=== PATIENT | female | born 1925 | race Caucasian/White ===

== ENCOUNTER 2016-06-16 18:31 | Inpatient (IN) | payer MEDICARE, BC, OTHER ==
--- NOTE | 2016-06-16 19:36 | ERNOTE ---
<JacksonLynne - Last Filed: 06/16/16 20:51> Dyspnea - General Presenting Symptoms: shortness of breath, difficulty of breathing - on exertion Time Seen by Provider: 06/16/16 19:15 - Immun/Allergies/Home Medications Immunizations: IMMUNIZATION HX Immunizations Up to Date Yes History of Influenza Vaccine Yes Hx Pneumococcal Vaccination No Allergies/Adverse Reactions: Allergies No Known Allergies Allergy (Verified 05/04/16 20:24) Home Medications: HOME MEDICATIONS Citalopram Hydrobromide [Celexa] 10 mg PO DAILY@199908/13/12 [Last Taken 19:00] Simvastatin [Zocor] 40 mg PO DAILY@199908/13/12 [Last Taken 08/12/121999] glyBURIDE [Micronase] 5 mg PO BIDAC 08/13/12 [Last Taken Unknown] traMADol HCL [Ultram] 50 mg PO DAILY PRN 08/13/12 [Last Taken 08/12/12 21:00] Enalapril Maleate [Vasotec] 5 mg PO DAILY@1700 05/04/16 [Last Taken Unknown] Nitroglycerin [Nitrostat] 0.4 mg SL Q5MIN PRN 05/04/16 [Last Taken Unknown] Nystatin [Mycostatin Powder] 1 appl TP BID 05/04/16 [Last Taken Unknown] Omeprazole 20 mg PO DAILY@0800 05/04/16 [Last Taken Unknown] Warfarin Sodium [Coumadin] 2 mg PO 3XW 05/04/16 [Last Taken Unknown] Furosemide [Lasix] 40 mg PO DAILY@1200 #.1 tablet 05/08/16 [Last Taken Unknown] Metoprolol Succinate [Toprol Xl] 50 mg PO DAILY@2100 #30 tablet.sa 05/08/16 [ Last Taken Unknown] Spironolactone [Aldactone] 12.5 mg PO DAILY@1200 #30 tablet 05/08/16 [Last Taken Unknown] Warfarin Sodium [Coumadin] 3 mg PO 3XW #30 tablet 05/08/16 [Last Taken Unknown] Calcitriol [Rocaltrol] 0.25 mcg PO DAILY 06/17/16 [Last Taken Unknown] Cholecalciferol (Vitamin D3) [Vitamin D3] 1,000 unit PO DAILY 06/17/16 [Last Taken Unknown] Ciprofloxacin HCl [Cipro] 500 mg PO BID 06/17/16 [Last Taken 06/16/16] Physical Exam - Physical Exam Respiratory: Present: no respiratory distress - is resting comfortable in the supine position she has not had any respiratory distress however she states that when she takes 2 or 3 steps she becomes acutely short of breath ED Progress - Results and Orders Patient's Lab Results:: I have reviewed the patient's lab results. - patient's BNP is greater than 12,000 and is 1.9 - Vital Signs Patient's Vital Signs:: I have reviewed the patient's vital signs. Vital Signs: Vital Signs 06/16/16 06/16/16 06/16/16 18:48 19:44 20:14 Temperature 36.2 C L Pulse Rate 70 71 69 Respiratory 18 23 H Rate Blood Pressure 108/63 115/51 115/51 O2 Sat by Pulse 96 96 Oximetry 06/16/16 20:31 Temperature Pulse Rate 73 Respiratory 22 H Rate Blood Pressure O2 Sat by Pulse 94 Oximetry - EKG EKG: NSR - patient's x-ray reveals congestion in the right hilar region and pleural effusion on the left lower lobe. X-ray is consistent with CHF - Progress/Reassessment Chief Complaint: Dyspnea Plan - Plan Plan: Believe it would be in the patient's best interest to be admitted to this hospital for diagnosis of CHF exacerbation. Face our hospitalist was consulted in regards to this admission. Admit the patient to the telemetry unit. Departure Clinical Impression: Acute pulmonary edema with congestive heart failure Acute exacerbation of CHF (congestive heart failure) Qualifiers: Congestive heart failure type: unspecified congestive heart failure type Qualified Code(s): I50.9 - Heart failure, unspecified Dyspnea Qualifiers: Dyspnea type: shortness of breath Qualified Code(s): R06.02 - Shortness of breath - Departure Disposition: [facility] Condition: Good <Kemal Miller - Last Filed: 06/17/16 11:04> Dyspnea - Date Date of Service: 06/16/16 - General Presenting Symptoms: shortness of breath, difficulty of breathing Source: patient, family, RN notes reviewed Exam Limitations: no limitations - Immun/Allergies/Home Medications Immunizations: IMMUNIZATION HX Immunizations Up to Date Yes History of Influenza Vaccine Yes Hx Pneumococcal Vaccination No - History of Present Illness Date (Duration): 06/12/16 Severity: moderate Treatment [employer]: lasix Modifying Factors - (Improves): Reports: rest Modifying Factors (Worsens): Reports: activity Associated Symptoms-Dyspnea: Reports: cough, ankle/leg swelling. Denies: fever/ chills, sweating, chest pain/discomfort, palpitations, wheezing, leg/calf pain, dizziness, lightheadedness, weakness, anxiety, tingling of hands/face Prior Treatment: Reports: recently hospitalized, previous episodes - patient has been admitted to the hospital at the end of May for similar symptoms, she was diuresed for her fluid overload/congestive heart failure Review of Systems - Review of Systems Constitutional: Present: fever, weakness, fatigue, malaise Respiratory: Present: shortness of breath, cough. Absent: orthopnea, wheezing, stridor Cardiology: Absent: chest pain, palpitations, syncope, edema, claudication Gastrointestinal/Abdominal: Absent: no symptoms reported Musculoskeletal: Present: no symptoms reported. Absent: back pain Skin: Present: no symptoms reported Neurological: Present: no symptoms reported. Absent: anxiety, depressed - Patient's Past Medical History Patient History - Medical: Anemia, Diabetes Type 2, Obesity, Other Patient History - Cardiac/Respiratory: Atrial Fibrillation, Coronary Heart Disease, CHF, Hypertension, Hyperlipidemia Patient History - Cancer: Colon Patient History - Surgical Procedures: Cancer Surgery, Cataracts, Cholecystectomy, Colon Resection, Other - Family History Brother Family History - Medical: Diabetes Type 2, Seizures Father Family History - Medical: , Other Mother Family History - Medical: , Diabetes Type 2 - Social History Living Situations: home Smoking Status: Former smoker Alcohol Use: none Drug Use: none Physical Exam - Physical Exam General Appearance: Present: wd/wn, alert, no apparent distress Ears, Nose, Throat: Present: normal ENT inspection, hearing grossly normal, normal pharynx Neck: Present: normal inspection, nontender Respiratory: Present: no respiratory distress, no accessory muscle use, chest nontender, lungs clear, decreased breath sounds, rales - bibasilar rails and crackles Cardiovascular/Chest: Present: regular rate, rhythm, no murmur, normal peripheral pulses Gastrointestinal/Abdominal: Present: normal bowel sounds, nontender, nondistended Neurological Exam: Present: alert, oriented, normal mood/affect, no motor/ sensory deficits Skin Exam: Present: normal color, warm/dry Lymphatic Exam: Present: no adenopathy ED Progress - Vital Signs Patient's Vital Signs:: I have reviewed the patient's vital signs. Vital Signs: Vital Signs 06/16/16 18:48 Temperature 36.2 C L Pulse Rate 70 Respiratory 18 Rate Blood Pressure 108/63 O2 Sat by Pulse 96 Oximetry - Transfer of Care Physician Sign Out: Kemal Miller Receiving Physician: Lynne Paz Pending Results: Labs, X-ray results - reading for labs and results the patient' s care will be transferred over to Dr. Paz for further dispositioning and following up on labs.
[2016-06-16] MEDS ORDERED: FUROSEMIDE 10 MG/ML VIAL IV ONE ×2 (19:39→23:09)
[2016-06-16] MEDS ORDERED: FUROSEMIDE 10 MG/ML VIAL ONE (20:09)
[2016-06-16 20:10] LABS: Hematocrit 35.4 % (37.0-47.0); Hemoglobin 10.9 gm/dL (12.5-16.0); Mean Cell Volume 88.7 fl (78-100); Mean Corpuscular Hemoglobin 27.3 pg (27-31); Mean Corpuscular Hgb Conc 30.8 g/dl (32-36); Mean Platelet Volume 10.5 fl (6.0-9.5); Neutrophil # 3.5 K/mm3 (1.3-6.0); Neutrophil % 65.9 % (42-75.0); Platelet Count 167 K/mm3 (150-450); Red Blood Count 3.99 M/mm3 (4.2-5.4); Red Cell Distribution Width 16.1 % (11.5-14.0); White Blood Count 5.3 K/mm3 (4.0-10.5)
[2016-06-16 20:23] LABS: Prothrombin Time (Patient) 23.4 Seconds (9.4-11.4)
[2016-06-16 20:27] LABS: INR 2.25 INR (0.90-1.10); Partial Thrombolplastin Time 31.4 Seconds (24-32)
[2016-06-16 20:31] LABS: Anion Gap 10.8 mmol/L (6.8-13.8); BUN/Creatinine Ratio 15.9 (9.0-21.6); Bilirubin, Total 0.6 mg/dL (0.0-1.1); Ca. Corrected For Albumin 9.1 mg/dL (8.4-10.2); Calcium * 8.6 mg/dL (7.9-10.9); Carbon Dioxide 26.6 mmol/L (24-32.6); Potassium 4.4 mmol/L (3.4-4.6); Total Protein 6.7 gm/dL (6.2-8.2); Troponin I 0.035 ng/ml (0.00-0.10)
[2016-06-16] MEDS ORDERED: METOLAZONE 5 MG TABLET PO ONE (23:08)
[2016-06-16] MEDS ORDERED: NITROGLYCERIN 0.4 MG/TAB BTL SL PRN (23:13)
[2016-06-16] MEDS ORDERED: traMADol HCL 50 MG TABLET PO PRN (23:13)
[2016-06-16] MEDS ORDERED: METOPROLOL SUCCINATE 50 MG TABLET.SA PO SCH (23:30)
[2016-06-16] MEDS ORDERED: SIMVASTATIN 40 MG TABLET PO SCH (23:30)
[2016-06-16] MEDS: CITALOPRAM HYDROBROMIDE 10 MG TABLET PO SCH (23:42)
--- NOTE | 2016-06-17 00:22 | HP ---
Chief Complaint - Chief Complaint Date of Service: 06/16/16 Time of Service: 23:27 Chief Complaint: "SOB, Weakness, increased leg swelling". Source- Pt; reliable , ER provider notes. History of Present Illness: Ms. New is a 89-yr-old [place] pt of Dr. Ha with a PMH of: Anemia, A-fib, DM II , CHF, HTN, HLD & IBS. Pt states that for the last 3-4 days, she has had worsening SOB. She reports that she has felt weak & has had no appetite. [facility] RN convinced to seek medical care today. She was then brought to the [facility] ER by her daughter. She has had increasing coughing as well, but it's mostly non- productive. She denies fevers & Chills. She also denies n/v, abd pain or diarrhea. During evaluation at the ED, the CXR showed findings consistent with pulmonary Edema. She also had increased swelling on her BLE. She will need to be admitted inpatient due to Acute CHF exacerbation which will respond well to IV diuretics. - Patient's Past Medical History Patient History - Medical: Anemia, Diabetes Type 2, Obesity, Other Patient History - Cardiac/Respiratory: Atrial Fibrillation, Coronary Heart Disease, CHF, Hypertension, Hyperlipidemia Patient History - Cancer: Colon Patient History - Surgical Procedures: Cancer Surgery, Cataracts, Cholecystectomy, Colon Resection - Family History Brother Family History - Medical: Diabetes Type 2, Seizures Family History - Cardiac/Respiratory: No pertinent hx Father Family History - Medical: , Other - Natural Causes. Family History - Cardiac/Respiratory: History Unknown Mother Family History - Medical: , Diabetes Type 2 Family History - Cardiac/Respiratory: Hypertension - Social History Living Situations: home Smoking Status: Former smoker Have you smoked in the past 12 months: No Alcohol Use: none Drug Use: none - Immunizations Immunizations Up to Date: Yes Hx Pneumococcal Vaccination: Yes History of Influenza Vaccine: Yes Review Of Systems (GEN) - Review of Systems Generalized/Overall Review: Present: Weakness. Absent: Chills, Fever, Diaphoresis EENTM: Absent: Eye Pain, Blurred Vision Respiratory: Present: Cough, Shortness of Breath Cardiac: Absent: Chest Pain, Edema, Palpitations Abdominal: Absent: Nausea, Vomiting, Abdominal Pain, Constipation, Diarrhea Genitourinary: Present: Frequency. Absent: Burning, Itching, Urgency, Hesitancy Musculoskeletal: Absent: Joint Pain, Back Pain, Joint Swelling Neurological: Present: Weakness. Absent: Headache, Anxiety, Emotional Problems , Tremors Skin: Present: Bruising. Absent: No Symptoms Reported, Dryness, Lesions Endocrine: Absent: Intolerance to Cold, Intolerance to Heat, Increased Thirst Misc: All systems neg except as marked Allergies/Adverse Reactions: Allergies Allergy/AdvReac Type Severity Reaction Status Date / Time No Known Allergies Allergy Verified 05/04/16 20:24 Home Medications: HOME MEDICATIONS Citalopram Hydrobromide [Celexa] 10 mg PO DAILY 08/13/12 [Last Taken 08/12/12 19 :00] Simvastatin [Zocor] 40 mg PO DAILY 08/13/12 [Last Taken 08/12/121999] glyBURIDE [Micronase] 5 mg PO BIDAC 08/13/12 [Last Taken Unknown] traMADol HCL [Ultram] 50 mg PO DAILY PRN 08/13/12 [Last Taken 08/12/12 21:00] Enalapril Maleate [Vasotec] 5 mg PO DAILY 05/04/16 [Last Taken Unknown] Metoprolol Succinate 50 mg PO DAILY 05/04/16 [Last Taken Unknown] Nitroglycerin [Nitrostat] 0.4 mg SL Q5MIN PRN 05/04/16 [Last Taken Unknown] Nystatin [Mycostatin Powder] 1 appl TP BID 05/04/16 [Last Taken Unknown] Omeprazole 20 mg PO DAILY 05/04/16 [Last Taken Unknown] Warfarin Sodium [Coumadin] 2 mg PO 3XW 05/04/16 [Last Taken Unknown] Furosemide [Lasix] 40 mg PO DAILY@1200 #.1 tablet 05/08/16 [Last Taken Unknown] Metoprolol Succinate [Toprol Xl] 50 mg PO DAILY@2100 #30 tablet.sa 05/08/16 [ Last Taken Unknown] Spironolactone [Aldactone] 12.5 mg PO DAILY@1200 #30 tablet 05/08/16 [Last Taken Unknown] Warfarin Sodium [Coumadin] 3 mg PO 3XW #30 tablet 05/08/16 [Last Taken Unknown] Exam - Exam Vital Signs: Vital Signs - Last Taken Temp 36.5 C 06/16/16 22:07 Pulse 70 01/13/17 22:07 Resp 16 06/16/16 22:07 BP 133/66 06/16/16 22:07 Pulse Ox 99 06/16/16 22:07 Constitutional: Present: Alert, Oriented x3, No distress, Elderly ENT Exam: Present: normal ENT inspection, hearing grossly normal, hard of hearing Eye Exam: bilateral eye: normal inspection, PERRL Neck: Present: full range of motion, supple, normal inspection Back Exam: Present: no CVA tenderness Breasts: Present: Exam deferred Respiratory: Present: lungs clear, no accessory muscle use, rales - Bilateral Bases Cardiovascular/Chest: Present: no murmur, irregularly irregular Abdomen: Present: Normal bowel sounds, soft, nontender, obese /Rectal: Present: Exam deferred Extremity: Present: lower extremity edema - + 2-3 Tibial/Pedal Edema. Skin Exam: Present: warm/dry, no cyanosis Lymphatic: Present: no adenopathy Neurologic: Present: no motor/sensory deficits, alert, oriented x 3. Absent: dizzy/light-headedness Appearance: Present: appropriate appearance, appropriate insight Eye contact: Present: cooperative, good eye contact, normal speech Thoughts: Present: normal thought pattern, no apparent hallucination Diagnostic Studies: Laboratory Results WBC 5.3 K/mm3 (4.0-10.5) 06/16/16 20:03 RBC 3.99 M/mm3 (4.2-5.4) L 06/16/16 20:03 Hgb 10.9 gm/dL (12.5-16.0) L 06/16/16 20:03 Hct 35.4 % (37.0-47.0) L 06/16/16 20:03 MCV 88.7 fl (78-100) 06/16/16 20:03 MCH 27.3 pg (27-31) 06/16/16 20:03 MCHC 30.8 g/dl (32-36) L 06/16/16 20:03 RDW 16.1 % (11.5-14.0) H 06/16/16 20:03 Plt Count 167 K/mm3 (150-450) 06/16/16 20:03 MPV 10.5 fl (6.0-9.5) H 06/16/16 20:03 Immature Gran % (Auto) 0.20 % (0.001-0.429) 06/16/16 20:03 Immature Gran # (Auto) 0.01 K/mm3 (0.000-0.0310) 06/16/16 20:03 Neutrophils % 65.9 % (42-75.0) 06/16/16 20:03 Lymphocytes % 24.2 % (20-51) 06/16/16 20:03 Monocytes % 6.8 % (0.0-9) 06/16/16 20:03 Eosinophils % 2.3 % (0.0-3.0) 06/16/16 20:03 Basophils % 0.6 % (0.0-1.0) 06/16/16 20:03 Nucleated RBC % 0.0 k/mm3 (0-1) 06/16/16 20: Neutrophils # 3.5 K/mm3 (1.3-6.0) 06/16/16 20:03 Lymphocytes # 1.3 k/mm3 (1.5-3.5) L 06/16/16 20: Monocytes # 0.4 k/mm3 (0.0-1.0) 06/16/16 20: Eosinophils # 0.1 k/mm3 (0.0-0.7) 06/16/16 20: Absolute Basophils 0.0 k/mm3 (0.0-0.1) 06/16/16 20:03 PT 23.4 Seconds (9.4-11.4) H 06/16/16 20:03 INR (Anticoag Therapy) 2.25 INR (0.90-1.10) H 06/16/16 20:03 PTT ([place]) 31.4 Seconds (24-32) 06/16/16 20:03 Sodium 135 mmol/L (132-142) 06/16/16 20:03 Plasma Sodium 139 mmol/L (130-142) 06/16/16 20:03 Potassium 4.4 mmol/L (3.4-4.6) 06/16/16 20:03 Chloride 102 mmol/L (97-106) 06/16/16 20:03 Carbon Dioxide 26.6 mmol/L (24-32.6) 06/16/16 20:03 Anion Gap 10.8 mmol/L (6.8-13.8) 06/16/16 20:03 BUN 31 mg/dL (3-23) H 06/16/16 20:03 Creatinine 1.95 mg/dL (0.4-1.4) H 06/16/16 20:03 Est GFR (Non-Af Amer) 26 mL/min (60-130) L D 06/16/16 20:03 BUN/Creatinine Ratio 15.9 (9.0-21.6) 06/16/16 20:03 Random Glucose 324 mg/dL (70-110) H 06/16/16 20:03 Calcium 8.6 mg/dL (7.9-10.9) 06/16/16 20:03 Calcium Adj for Albumin 9.1 mg/dL (8.4-10.2) 06/16/16 20:03 Total Bilirubin 0.6 mg/dL (0.0-1.1) 06/16/16 20:03 AST 23 U/L (0-48) 06/16/16 20:03 ALT 31 U/L (19-67) 06/16/16 20:03 Alkaline Phosphatase 84 U/L (50-170) 06/16/16 20:03 Troponin I 0.035 ng/ml (0.00-0.10) 06/16/16 20: B-Natriuretic Peptide 29874 pg/mL (5-550) H 06/16/16 20:03 Total Protein 6.7 gm/dL (6.2-8.2) 06/16/16 20:03 Albumin 3.0 gm/dl (3.4-5.0) L 06/16/16 20:03 Assessment/Plan - Assessment/Plan (1) Acute exacerbation of CHF (congestive heart failure) Assessment: CHF exacerbation noted with fluid overload signs and pulmonary edema findings on CXR. Will need to be admitted inpatient and diuresed with IV Lasix to relieve the symptoms. Hold PO Lasix doses for now. Will adjust the dose daily based on urine output, changes in signs of congestion & BP. Monitor electrolytes , & kidney function. Keep up with CHF teaching, Accurate I & O's, & Low salt diet. Problem: Acute (2) Acute kidney injury Assessment: Noted to have BUN/CR of 31/1.95. Is pre- renal due Heart Failure. Diuretics used due to signs of overload. Will hold enalapril, Lasix po, torsemide & Spironolactone for now. Monitor kidney function closely. Problem: Acute (3) A-fib Assessment: Stable- On remote tele, continue Coumadin & Metoprolol Problem: Chronic (4) HLD (hyperlipidemia) Assessment: Stable- On Zocor. Problem: Chronic (5) HTN (hypertension) Assessment: Stable- Hold enalapril for now due to poor kidney function. Problem: Chronic Qualifiers: (6) Diabetes mellitus Assessment: Stable- Accuchecks AC/HS- Continue glyburide. Problem: Chronic Qualifiers: Diabetes mellitus type: type 2
[2016-06-17 01:04] LABS: Urine Bilirubin Negative (NEGATIVE); Urine Blood Negative /ul (NEGATIVE); Urine Ketone Negative (NEGATIVE); Urine Nitrite Negative (NEGATIVE); Urine Protein Negative (NEGATIVE); Urine Urobilinogen Normal (NORMAL)
[2016-06-17 01:23] LABS: Urine Appearance Clear; Urine Bacteria None Seen; Urine Color Pale Yellow; Urine RBC 0-5 /hpf (0-5); Urine WBC 0-5 /hpf (0-5)
[2016-06-17 05:45] LABS: Hematocrit 36.4 % (37.0-47.0); Hemoglobin 11.3 gm/dL (12.5-16.0); Mean Cell Volume 87.9 fl (78-100); Mean Corpuscular Hemoglobin 27.3 pg (27-31); Mean Platelet Volume 10.4 fl (6.0-9.5); Neutrophil # 2.9 K/mm3 (1.3-6.0); Neutrophil % 50.1 % (42-75.0); Platelet Count 166 K/mm3 (150-450); Red Blood Count 4.14 M/mm3 (4.2-5.4); Red Cell Distribution Width 16.1 % (11.5-14.0); White Blood Count 5.9 K/mm3 (4.0-10.5)
[2016-06-17 06:03] LABS: Albumin * 3.1 gm/dl (3.4-5.0); Anion Gap 10.7 mmol/L (6.8-13.8); BUN/Creatinine Ratio 17.2 (9.0-21.6); Bilirubin, Total 0.7 mg/dL (0.0-1.1); Ca. Corrected For Albumin 9.4 mg/dL (8.4-10.2); Carbon Dioxide 29.4 mmol/L (24-32.6); Potassium 4.1 mmol/L (3.4-4.6)
[2016-06-17] MEDS: glyBURIDE 5 MG TABLET PO SCH ×2 (06:47→17:38)
[2016-06-17] MEDS ORDERED: OMEPRAZOLE 20 MG CAPSULE.SA PO SCH (07:00)
--- NOTE | 2016-06-17 07:13 | PN ---
Subjective - Date and Time Seen Date: 06/17/16 Time: 07:02 Subjective Narrative: Ms New is alert and in no distress. Nursing reports no acute events overnight. Not much improvement seen with swelling. Objective - Vitals Vitals: Last Vital Signs Temp 36.5 C 06/17/16 03:25 Pulse 66 06/17/16 03:25 Resp 22 H 06/17/16 03:25 BP 124/67 06/17/16 03:25 Pulse Ox 97 06/17/16 03:25 - Abnormal Lab Findings Abnormal Lab Findings: Abnormal Lab Results 06/17/16 06/17/16 06/17/16 Range/Units 00:59 05:15 05:15 RBC 4.14 L (4.2-5.4) M/mm3 Hgb 11.3 L (12.5-16.0) gm/dL Hct 36.4 L (37.0-47.0) % MCHC 31.0 L (32-36) g/dl RDW 16.1 H (11.5-14.0) % MPV 10.4 H (6.0-9.5) fl BUN 30 H (3-23) mg/dL Creatinine 1.74 H (0.4-1.4) mg/dL Est GFR (Non-Af Amer) 29 L (60-130) mL/min Random Glucose 199 H D (70-110) mg/dL Albumin 3.1 L (3.4-5.0) gm/dl Ur Epithelial Cells 10-25 H (0-5) /hpf - Exam Constitutional: Present: Alert, Oriented x3, No distress, Elderly, Obese ENT Exam: Present: hearing grossly normal, dry mucous membranes Neck: Present: full range of motion, supple, normal inspection Breasts: Present: Exam deferred Respiratory: Present: lungs clear, no accessory muscle use Cardiovascular/Chest: Present: normal peripheral pulses, regular rate, rhythm, no murmur Abdomen: Present: Normal bowel sounds, soft, nontender, obese /Rectal: Present: Exam deferred Extremity: Present: non-tender, lower extremity edema - + 2-3 BLE Skin Exam: Present: warm/dry, no cyanosis Lymphatic: Present: no adenopathy Neurologic: Present: no motor/sensory deficits, alert, oriented x 3 Appearance: Present: appropriate appearance, appropriate insight Eye contact: Present: cooperative, good eye contact, normal speech Thoughts: Present: normal thought pattern, no apparent hallucination Assessment/Plan - Problems/Diagnosis (1) Acute exacerbation of CHF (congestive heart failure) Problem: Acute Narrative: CHF exacerbation noted with fluid overload signs and pulmonary edema findings on CXR. Will need to be admitted inpatient and diuresed with IV Lasix to relieve the symptoms. Hold PO Lasix doses for now. Will adjust the dose daily based on urine output, changes in signs of congestion & BP. Monitor electrolytes , & kidney function. Keep up with CHF teaching, Accurate I & O's, & Low salt diet. (2) Acute kidney injury Problem: Acute Narrative: Noted to have BUN/CR of 31/1.95. Slight improvement this am. Is pre- renal due Heart Failure. Diuretics used due to signs of overload. Will hold enalapril , Lasix po, torsemide & Spironolactone for now. Monitor kidney function closely. (3) A-fib Problem: Chronic Narrative: Stable- On remote tele, continue Coumadin & Metoprolol (4) HLD (hyperlipidemia) Problem: Chronic (5) HTN (hypertension) Problem: Chronic Qualifiers: (6) Diabetes mellitus Problem: Chronic Qualifiers: Diabetes mellitus type: type 2
[2016-06-17] MEDS: PANTOPRAZOLE SODIUM 20 MG TABLET.DR PO SCH (08:00)
[2016-06-17] MEDS ORDERED: ENALAPRIL MALEATE 5 MG TABLET PO SCH (09:00)
[2016-06-17] MEDS ORDERED: TORSEMIDE 20 MG TABLET PO SCH (09:00)
[2016-06-17] MEDS ORDERED: METOPROLOL SUCCINATE 25 MG TABLET.SA PO SCH (09:00)
[2016-06-17] MEDS ORDERED: METOPROLOL SUCCINATE 50 MG TABLET.SA PO SCH (09:00)
[2016-06-17] MEDS: NYSTATIN 15 APPL BTL TP SCH ×2 (09:29→20:57)
[2016-06-17] MEDS: POTASSIUM CHLORIDE 20 MEQ TABLET.SA PO SCH ×2 (09:29→17:38)
[2016-06-17] MEDS: FUROSEMIDE 10 MG/ML VIAL IV SCH ×2 (09:30→20:56)
[2016-06-17] MEDS: CITALOPRAM HYDROBROMIDE 10 MG TABLET PO SCH (09:30)
[2016-06-17] MEDS ORDERED: WARFARIN SODIUM 2 MG TABLET PO SCH (17:00)
[2016-06-17] MEDS: METOPROLOL SUCCINATE 50 MG TABLET.SA PO SCH (20:57)
[2016-06-17] MEDS: SIMVASTATIN 40 MG TABLET PO SCH (20:57)
--- NOTE | 2016-06-18 05:50 | PN ---
Subjective - Date and Time Seen Date: 06/18/16 Time: 05:45 Subjective Narrative: Ms New did not have any acute events overnight. Swelling on her BLE is improving. Still gets SOB with activity. Is responding well to the IV diuretics - 3.7 kg loss overnight. Objective - Vitals Vitals: Last Vital Signs Temp 36.6 C 06/18/16 02:37 Pulse 62 06/18/16 02:37 Resp 16 06/18/16 02:37 BP 134/75 06/18/16 02:37 Pulse Ox 97 06/18/16 02:37 - Abnormal Lab Findings Abnormal Lab Findings: Abnormal Lab Results 06/17/16 06/17/16 Range/Units 05:15 05:15 RBC 4.14 L (4.2-5.4) M/mm3 Hgb 11.3 L (12.5-16.0) gm/dL Hct 36.4 L (37.0-47.0) % MCHC 31.0 L (32-36) g/dl RDW 16.1 H (11.5-14.0) % MPV 10.4 H (6.0-9.5) fl BUN 30 H (3-23) mg/dL Creatinine 1.74 H (0.4-1.4) mg/dL Est GFR (Non-Af Amer) 29 L (60-130) mL/min Random Glucose 199 H D (70-110) mg/dL Albumin 3.1 L (3.4-5.0) gm/dl - Exam Constitutional: Present: Alert, Oriented x3, Cooperative, No distress ENT Exam: Present: normal ENT inspection, hearing grossly normal. Absent: nasal congestion, nasal drainage Neck: Present: full range of motion, supple, normal inspection Breasts: Present: Exam deferred Respiratory: Present: lungs clear, no accessory muscle use, rales - Bilateral Bases, No wheezing Cardiovascular/Chest: Present: normal peripheral pulses, regular rate, rhythm, no murmur Abdomen: Present: Normal bowel sounds, soft, nontender, obese /Rectal: Present: Exam deferred Extremity: Present: non-tender, lower extremity edema - + 1 BLE Skin Exam: Present: warm/dry, no cyanosis, other - scattered bruising Lymphatic: Present: no adenopathy Neurologic: Present: no motor/sensory deficits, alert, oriented x 3. Absent: dizzy/light-headedness Appearance: Present: appropriate appearance, appropriate insight Eye contact: Present: cooperative, good eye contact Thoughts: Present: normal thought pattern, no apparent hallucination Assessment/Plan - Problems/Diagnosis (1) Acute exacerbation of CHF (congestive heart failure) Problem: Acute Qualifiers: Congestive heart failure type: unspecified congestive heart failure type Qualified Code(s): I50.9 - Heart failure, unspecified Narrative: CHF exacerbation noted with fluid overload signs and pulmonary edema findings on CXR. Will need to be admitted inpatient and diuresed with IV Lasix to relieve the symptoms. Hold PO Lasix doses for now. Will adjust the dose daily based on urine output, changes in signs of congestion & BP. Monitor electrolytes , & kidney function. Keep up with CHF teaching, Accurate I & O's, & Low salt diet. (2) Acute kidney injury Problem: Acute Narrative: Noted to have BUN/CR of 31/1.95. Slight improvement this am. Is pre- renal due Heart Failure. Diuretics used due to signs of overload. Will hold enalapril , Lasix po, torsemide & Spironolactone for now. Monitor kidney function closely. (3) A-fib Problem: Chronic Narrative: Stable- On remote tele, continue Coumadin & Metoprolol (4) HLD (hyperlipidemia) Problem: Chronic (5) HTN (hypertension) Problem: Chronic Qualifiers: (6) Diabetes mellitus Problem: Chronic Qualifiers: Diabetes mellitus type: type 2
[2016-06-18 06:07] LABS: Hemoglobin 11.8 gm/dL (12.5-16.0); Mean Cell Volume 86.8 fl (78-100); Mean Corpuscular Hemoglobin 26.9 pg (27-31); Mean Corpuscular Hgb Conc 31.1 g/dl (32-36); Mean Platelet Volume 10.6 fl (6.0-9.5); Platelet Count 179 K/mm3 (150-450); Red Blood Count 4.38 M/mm3 (4.2-5.4); Red Cell Distribution Width 16.1 % (11.5-14.0); White Blood Count 5.7 K/mm3 (4.0-10.5)
[2016-06-18 06:31] LABS: BUN/Creatinine Ratio 18.4 (9.0-21.6); Estimated Creat Clear 16.9
[2016-06-18 06:32] LABS: Anion Gap 12.2 mmol/L (6.8-13.8); Calcium * 9.3 mg/dL (7.9-10.9); Carbon Dioxide 29.5 mmol/L (24-32.6); Potassium 4.7 mmol/L (3.4-4.6)
[2016-06-18 06:39] LABS: INR 1.83 INR (0.90-1.10)
[2016-06-18] MEDS: glyBURIDE 5 MG TABLET PO SCH ×2 (07:51→18:06)
[2016-06-18] MEDS: PANTOPRAZOLE SODIUM 20 MG TABLET.DR PO SCH (07:51)
[2016-06-18] MEDS: FUROSEMIDE 10 MG/ML VIAL IV SCH ×2 (09:14→21:20)
[2016-06-18] MEDS: CITALOPRAM HYDROBROMIDE 10 MG TABLET PO SCH (09:14)
[2016-06-18] MEDS: NYSTATIN 15 APPL BTL TP SCH ×2 (09:15→21:19)
[2016-06-18] MEDS ORDERED: WARFARIN SODIUM 3 MG TABLET PO SCH (17:00)
[2016-06-18] MEDS: METOPROLOL SUCCINATE 50 MG TABLET.SA PO SCH (21:19)
[2016-06-18] MEDS: SIMVASTATIN 40 MG TABLET PO SCH (21:20)
[2016-06-19 05:31] LABS: Hematocrit 39.2 % (37.0-47.0); Hemoglobin 12.3 gm/dL (12.5-16.0); Mean Cell Volume 86.3 fl (78-100); Mean Corpuscular Hemoglobin 27.1 pg (27-31); Mean Corpuscular Hgb Conc 31.4 g/dl (32-36); Mean Platelet Volume 10.5 fl (6.0-9.5); Neutrophil # 4.6 K/mm3 (1.3-6.0); Platelet Count 204 K/mm3 (150-450); Red Blood Count 4.54 M/mm3 (4.2-5.4); Red Cell Distribution Width 15.9 % (11.5-14.0); White Blood Count 7.9 K/mm3 (4.0-10.5)
[2016-06-19 05:48] LABS: Prothrombin Time (Patient) 18.5 Seconds (9.4-11.4)
[2016-06-19 05:49] LABS: Anion Gap 13.3 mmol/L (6.8-13.8); Calcium * 9.1 mg/dL (7.9-10.9); Carbon Dioxide 30.4 mmol/L (24-32.6); Estimated Creat Clear 16.4; Potassium 4.7 mmol/L (3.4-4.6)
[2016-06-19 05:51] LABS: INR 1.78 INR (0.90-1.10)
[2016-06-19] MEDS: PANTOPRAZOLE SODIUM 20 MG TABLET.DR PO SCH (07:03)
[2016-06-19] MEDS: glyBURIDE 5 MG TABLET PO SCH (07:03)
--- NOTE | 2016-06-19 08:09 | DS ---
(1) Acute pulmonary edema with congestive heart failure Problem: Resolved (2) Chronic renal failure, stage 4 (severe) Problem: Chronic (3) HTN (hypertension) Problem: Chronic Qualifiers: Hypertension type: essential hypertension (4) A-fib Problem: Chronic Qualifiers: Atrial fibrillation type: chronic Qualified Code(s): I48.2 - Chronic atrial fibrillation (5) HLD (hyperlipidemia) Problem: Chronic Qualifiers: Hyperlipidemia type: mixed hyperlipidemia Qualified Code(s): E78.2 - Mixed hyperlipidemia Description of Stay: Edna New is a 89-yr-old WF pt of Dr. Hoff with a PMH of: Anemia, A-fib, DM II, CHF, HTN, HLD & IBS. 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 She reported that she has felt weak & has had no appetite. She was then brought to the [facility] ER by her daughter on 06/16/2016. She also had increasing coughing as well, but it's mostly non-productive. She denied fevers & Chills. She also denied n/v , abd pain or diarrhea. During evaluation at the ED, the CXR showed findings consistent with pulmonary Edema. She also had increased swelling on her BLE. She was admitted inpatient due to Acute CHF exacerbation . She was diuresed and lost a siginifcant amount of weight (5.4 Kg). She is stable now to be discharged. We will hold her Spironolactone as she is slightly hyperkaemic at 4.7. Will repeat BMP/INR on Sunday. Procedures Performed: none Discharge Disposition: Home self care Disposition: Home self-care Condition: Good Discharge Activity: Activity as tolerated Discharge Diet: Low salt Referrals: Octavia Hoff MD [Primary Care Provider] - Additional Patient Instructions (free text): [facility] ongoing. Please fax discharge instructions and medications. Follow up with PCP - Dr Hoff in 1 week. Prescriptions (Any new or edited meds): Furosemide [Lasix] 80 mg PO DAILY@1200 #.1 tablet Complete Home Medications List: Complete Home Medication List: Citalopram Hydrobromide [Celexa] 10 mg PO DAILY@199908/13/12 Simvastatin [Zocor] 40 mg PO DAILY@199908/13/12 glyBURIDE [Micronase] 5 mg PO BIDAC 08/13/12 traMADol HCL [Ultram] 50 mg PO DAILY PRN 08/13/12 Enalapril Maleate [Vasotec] 5 mg PO DAILY@1700 05/04/16 Nitroglycerin [Nitrostat] 0.4 mg SL Q5MIN PRN 05/04/16 Nystatin [Mycostatin Powder] 1 appl TP BID 05/04/16 Omeprazole 20 mg PO DAILY@0800 05/04/16 Warfarin Sodium [Coumadin] 2 mg PO 3XW 05/04/16 Metoprolol Succinate [Toprol Xl] 50 mg PO DAILY@2100 #30 tablet.sa 05/08/16 Warfarin Sodium [Coumadin] 3 mg PO 3XW #30 tablet 05/08/16 Calcitriol 0.25 mcg PO DAILY 06/17/16 Cholecalciferol (Vitamin D3) [Vitamin D3] 1,000 unit PO DAILY 06/17/16 Furosemide [Lasix] 80 mg PO DAILY@1200 #.1 tablet 06/19/16 Amb Orders for Discharge: Basic Metabolic Panel Time Frame: 06/23/16, Location: Determined By Patient Prothrombin Time Time Frame: 06/23/16, Location: Determined By Patient
[2016-06-19] MEDS: NYSTATIN 15 APPL BTL TP SCH (08:52)
[2016-06-19] MEDS: CITALOPRAM HYDROBROMIDE 10 MG TABLET PO SCH (08:53)
[2016-06-19] MEDS: FUROSEMIDE 10 MG/ML VIAL IV SCH (08:53)
[2016-06-19 11:21] VITALS: BP 108/60
== END 2016-06-19 12:45 | disposition home health service (06) | DRG 292 ==
LOC: ER 18:31 → MS 21:02 → OBSVTOIN 21:02
PROVIDERS: ADMIT Nurse Practitioner; ATTEND Internal Medicine
DX: I50.33 Acute on chronic diastolic (congestive) heart failure (principal); N18.4 Chronic kidney disease, stage 4 (severe); N17.8 Other acute kidney failure; E87.70 Fluid overload, unspecified; I12.9 Hypertensive chronic kidney disease with stage 1 through stage 4 chronic kidney disease, or unspecified chronic kidney disease; I48.2 Chronic atrial fibrillation; E78.5 Hyperlipidemia, unspecified; Z87.891 Personal history of nicotine dependence; Z79.01 Long term (current) use of anticoagulants

== ENCOUNTER 2016-08-18 08:57 | Emergency (ER) | payer MEDICARE, BC, OTHER ==
[2016-08-18] MEDS ORDERED: traMADol HCL 50 MG TABLET PO ONE (09:46)
--- NOTE | 2016-08-18 10:02 | ERNOTE ---
Trauma/Assault HPI - Narrative Date of Service: 08/18/16 - General Stated Complaint: CHF, DIABETES, Fall Time Seen by Provider: 08/18/16 09:36 Source: patient, family, EMS Exam Limitations: no limitations - Immun/Allergies/Home Medications Immunizations: IMMUNIZATION HX Immunizations Up to Date Yes History of Influenza Vaccine Yes Hx Pneumococcal Vaccination Yes Allergies/Adverse Reactions: Allergies No Known Allergies Allergy (Verified 06/19/16 03:59) Home Medications: HOME MEDICATIONS Citalopram Hydrobromide [Celexa] 10 mg PO DAILY@199908/13/12 [Last Taken 19:00] Simvastatin [Zocor] 40 mg PO DAILY@199908/13/12 [Last Taken 08/12/121999] glyBURIDE [Micronase] 5 mg PO BIDAC 08/13/12 [Last Taken Unknown] traMADol HCL [Ultram] 50 mg PO DAILY PRN 08/13/12 [Last Taken 08/12/12 21:00] Enalapril Maleate [Vasotec] 5 mg PO DAILY@1700 05/04/16 [Last Taken Unknown] Nitroglycerin [Nitrostat] 0.4 mg SL Q5MIN PRN 05/04/16 [Last Taken Unknown] Nystatin [Mycostatin Powder] 1 appl TP BID 05/04/16 [Last Taken Unknown] Omeprazole 20 mg PO DAILY@0800 05/04/16 [Last Taken Unknown] Warfarin Sodium [Coumadin] 2 mg PO 3XW 05/04/16 [Last Taken Unknown] Metoprolol Succinate [Toprol Xl] 50 mg PO DAILY@2100 #30 tablet.sa 05/08/16 [ Last Taken Unknown] Warfarin Sodium [Coumadin] 3 mg PO 3XW #30 tablet 05/08/16 [Last Taken Unknown] Calcitriol 0.25 mcg PO DAILY 06/17/16 [Last Taken Unknown] Cholecalciferol (Vitamin D3) [Vitamin D3] 1,000 unit PO DAILY 06/17/16 [Last Taken Unknown] Furosemide [Lasix] 40 mg PO BID 08/18/16 [Last Taken Unknown] traMADol HCL [Ultram] 1 tab PO Q6H PRN #48 tab 08/18/16 [Last Taken Unknown] - History of Present Illness Narrative: Brought to ER by ambulance after a fall at home. Daughter claims she found her mother, the patient, sitting on the floor of her home after slipping out of her wheel chair last night. Pt states she fell off her wheel chair and was unable to get up. C/o right upper back pain and right forearm pain. Denies hitting her head or any LOC. Pt other complaint is increase swelling of her feet. Location Occurred: Reports: home Pain Location: Reports: back - upper - Right, upper extremity - Right forearm Method of Injury: Reports: fall Severity: moderate Modifying Factors - (Worsens): Reports: movement - of her right wrist and forearm. Loss of Consciousness: Reports: no loss of consciousness Associated Symptoms - Trauma: Denies: headache, confusion, dizziness, lightheadedness, seizures, slurred speech, trouble walking, vision changes, neck pain, chest pain, shortness of breath, abdominal pain, nausea, vomiting, muscle spasms Review of Systems - Review of Systems Constitutional: Present: no symptoms reported EYE: Present: no symptoms reported ENT: Present: no symptoms reported Respiratory: Present: no symptoms reported Cardiology: Present: no symptoms reported Gastrointestinal/Abdominal: Present: no symptoms reported Genitourinary: Present: no symptoms reported Musculoskeletal: Present: See HPI Skin: Present: no symptoms reported Neurological: Present: no symptoms reported Endocrine: Present: no symptoms reported Hematologic/Lymphatic: Present: no symptoms reported Psych: Present: no symptoms reported All Other Systems: All systems neg except as marked - Patient's Past Medical History Patient History - Medical: Anemia, Diabetes Type 2, Obesity, Other Patient History - Cardiac/Respiratory: CHF Patient History - Cancer: Colon Patient History - Surgical Procedures: Cancer Surgery, Cataracts, Cholecystectomy, Colon Resection, Other Patient History - Other: None - Family History Brother Family History - Medical: Diabetes Type 2, Seizures Family History - Cardiac/Respiratory: No pertinent hx Father Family History - Medical: , Other Family History - Cardiac/Respiratory: History Unknown Mother Family History - Medical: , Diabetes Type 2 Family History - Cardiac/Respiratory: Hypertension - Social History Living Situations: home Abuse History: No History of abuse Psych History: No pertinent hx Smoking Status: Never smoker Alcohol Use: none Drug Use: none - Immunizations Immunizations Up to Date: Yes Hx Pneumococcal Vaccination: Yes History of Influenza Vaccine: Yes Physical Exam - Physical Exam General Appearance: Present: wd/wn, alert, no apparent distress, obese Eye Exam: Normal inspection: bilateral, PERRL: bilateral, EOMI: bilateral Ears, Nose, Throat: Present: normal ENT inspection Neck: Present: normal inspection, nontender, supple Respiratory: Present: no respiratory distress, normal breath sounds, no accessory muscle use, chest nontender, lungs clear Cardiovascular/Chest: Present: regular rate, rhythm, systolic murmur - old Gastrointestinal/Abdominal: Present: normal bowel sounds, nontender, nondistended, soft, no organomegaly Extremity Exam: Present: decreased range of motion - Of right wrist due to pain at distal forearm, bony tenderness - TTP of right scapular; TTP of extensor surface of distal foream with notable swelling/bruising. , extremity edema - Bilateral 2+ nonpitting edema. Neurological Exam: Present: alert, oriented, normal mood/affect, no motor/ sensory deficits Skin Exam: Present: normal color, warm/dry ED Progress - Results and Orders Patient's Lab Results:: I have reviewed the patient's lab results. - Vital Signs Patient's Vital Signs:: I have reviewed the patient's vital signs. Vital Signs: Vital Signs 08/18/16 09:00 Temperature 36.4 C L Pulse Rate 84 Respiratory 25 H Rate Blood Pressure 146/88 - EKG EKG: atrial fibrillation EKG read: Interp. by me EKG Comments: Chronic AFib with Ventricular rate of 69 BPM. - X-Ray X-Ray #1 X-Ray: chest Interpretation: Reviewed by Kenia hernandez/ radiologist X-Ray #2 X-Ray: ribs Interpretation: Reviewed by Kenia hernandez/ radiologist X-Ray #3 X-Ray: forearm Interpretation: Reviewed by me X-Ray #4 X-Ray: wrist Interpretation: Reviewed by me X-Ray #5 X-Ray: right scapular Interpretation: Reviewed by me - Progress/Reassessment Chief Complaint: Fall Progress:: Improved Departure Clinical Impression: Pedal edema Contusion, scapular region Qualifiers: Encounter type: initial encounter Laterality: right Qualified Code(s): S40.011A - Contusion of right shoulder, initial encounter Contusion of forearm, right Qualifiers: Encounter type: initial encounter Qualified Code(s): S50.11XA - Contusion of right forearm, initial encounter - Departure Disposition: Home self-care Condition: Good Instructions: Contusion, [id number], Edema, [id number] Referrals: Octavia Hoff MD [Primary Care Provider] - Prescriptions: traMADol HCL [Ultram] 1 tab PO Q6H PRN #48 tab PRN Reason: Pain
[2016-08-18 10:05] LABS: Hematocrit 39.2 % (37.0-47.0); Hemoglobin 12.2 gm/dL (12.5-16.0); Mean Cell Volume 86.2 fl (78-100); Mean Corpuscular Hemoglobin 26.8 pg (27-31); Mean Corpuscular Hgb Conc 31.1 g/dl (32-36); Mean Platelet Volume 9.7 fl (6.0-9.5); Neutrophil # 5.3 K/mm3 (1.3-6.0); Platelet Count 173 K/mm3 (150-450); Red Blood Count 4.55 M/mm3 (4.2-5.4); Red Cell Distribution Width 16.4 % (11.5-14.0); White Blood Count 7.4 K/mm3 (4.0-10.5)
[2016-08-18 10:21] LABS: Troponin I 0.039 ng/ml (0.00-0.10)
[2016-08-18 10:27] LABS: Albumin * 3.2 gm/dl (3.4-5.0); Anion Gap 15.3 mmol/L (6.8-13.8); BUN/Creatinine Ratio 23.4 (9.0-21.6); Bilirubin, Total 1.4 mg/dL (0.0-1.1); CKMB 0.9 ng/mL (0.0-9.0); Ca. Corrected For Albumin 9.3 mg/dL (8.4-10.2); Carbon Dioxide 26.2 mmol/L (24-32.6); Potassium 4.5 mmol/L (3.4-4.6); Total Protein 7.4 gm/dL (6.2-8.2)
[2016-08-18] MEDS ORDERED: FUROSEMIDE 10 MG/ML VIAL IV ONE (11:13)
[2016-08-18 11:25] LABS: Urine Bilirubin 1 mg/dl (NEGATIVE); Urine Blood Negative /ul (NEGATIVE); Urine Ketone Negative (NEGATIVE); Urine Nitrite Negative (NEGATIVE); Urine Protein Negative (NEGATIVE); Urine Urobilinogen Normal (NORMAL); Urine pH 5.5 pH (5.0-7.0)
[2016-08-18 11:40] LABS: Urine Appearance Clear; Urine Bacteria None Seen; Urine Color Dark Yellow; Urine RBC None Seen /hpf (0-5); Urine WBC None Seen /hpf (0-5)
[2016-08-18 11:41] LABS: Urine Amorphous Sediment Few - 1+ (NONE-FEW)
[2016-08-18 13:45] VITALS: BP 138/88
== END 2016-08-18 13:46 | disposition home or self-care (01) ==
LOC: ER 08:57
PROC: 0T9B70Z Drainage of Bladder with Drainage Device, Via Natural or Artificial Opening (ICD-10-PCS; principal; 2016-08-18)
DX: S50.11XA Contusion of right forearm, initial encounter (principal); S40.011A Contusion of right shoulder, initial encounter; R60.9 Edema, unspecified; Z85.038 Personal history of other malignant neoplasm of large intestine; W05.0XXA Fall from non-moving wheelchair, initial encounter; Y92.009 Unspecified place in unspecified non-institutional (private) residence as the place of occurrence of the external cause

== ENCOUNTER 2016-08-23 17:44 | Observation (INO) | payer MEDICARE, BC, OTHER ==
--- NOTE | 2016-08-23 18:18 | ERNOTE ---
Medical Problem HPI - General Chief Complaint: General Assessment Time Seen by Provider: 08/23/16 18:12 Source: patient, family Exam Limitations: no limitations - Immun/Allergies/Home Medications Immunizations: IMMUNIZATION HX Immunizations Up to Date Yes History of Influenza Vaccine Yes Hx Pneumococcal Vaccination Yes Allergies/Adverse Reactions: Allergies No Known Allergies Allergy (Verified 08/23/16 17:51) Home Medications: HOME MEDICATIONS Albuterol Sulfate [Albuterol Sulfate 2.5 MG/3 ML] 2.5 mg IH Q6H PRN 08/24/16 [ Last Taken Unknown] Citalopram Hydrobromide [Citalopram HBr] 10 mg PO DAILY 08/24/16 [Last Taken ] Enalapril Maleate [Vasotec] 5 mg PO DAILY 08/24/16 [Last Taken 08/23/16] Furosemide [Lasix] 40 mg PO BID 08/24/16 [Last Taken 08/23/16] Metoprolol Succinate [Toprol Xl] 50 mg PO DAILY 08/24/16 [Last Taken 08/23/16] Nitroglycerin [Nitrostat] 0.4 mg SL Q5MIN PRN 08/24/16 [Last Taken Unknown] Nystatin [Mycostatin Powder] 1 appl TP BID 08/24/16 [Last Taken 08/23/16] Omeprazole [Prilosec] 20 mg PO DAILY 08/24/16 [Last Taken 08/23/16] Simvastatin [Zocor] 40 mg PO HS 08/24/16 [Last Taken 08/22/16] Warfarin Sodium [Jantoven] 3 mg PO DAILY 08/24/16 [Last Taken 08/23/16] glyBURIDE [Micronase] 5 mg PO BIDAC 08/24/16 [Last Taken 08/23/16] traMADol HCL [Ultram] 50 mg PO DAILY PRN 08/24/16 [Last Taken Unknown] - History of Present History Narrative: Pt has been more fatigued and sleeping more over the past 2-3 days. Family observes that her legs are more swollen as well and she has fallen couple of times Timing: getting worse Severity: moderate Review of Systems - Review of Systems Constitutional: Present: weakness, fatigue EYE: Present: no symptoms reported ENT: Present: no symptoms reported Respiratory: Absent: shortness of breath, cough Cardiology: Present: edema. Absent: chest pain Gastrointestinal/Abdominal: Absent: nausea Genitourinary: Absent: frequency, dysuria Musculoskeletal: Present: no symptoms reported Skin: Present: no symptoms reported Neurological: Present: no symptoms reported Endocrine: Present: no symptoms reported Hematologic/Lymphatic: Present: no symptoms reported Psych: Present: no symptoms reported - Patient's Past Medical History Patient History - Medical: Anemia, Diabetes Type 2, Obesity, Other Patient History - Cardiac/Respiratory: CHF, Hypertension, Hyperlipidemia Patient History - Cancer: Colon Patient History - Surgical Procedures: Cancer Surgery, Cataracts, Cholecystectomy, Colon Resection, Other Patient History - Other: None - Family History Brother Family History - Medical: Diabetes Type 2, Seizures Family History - Cardiac/Respiratory: No pertinent hx Father Family History - Medical: , Other Family History - Cardiac/Respiratory: History Unknown Mother Family History - Medical: , Diabetes Type 2 Family History - Cardiac/Respiratory: Hypertension - Social History Living Situations: home Abuse History: No History of abuse Psych History: No pertinent hx Smoking Status: Never smoker Have you smoked in the past 12 months: No Alcohol Use: none Drug Use: none - Immunizations Immunizations Up to Date: Yes Hx Pneumococcal Vaccination: Yes History of Influenza Vaccine: Yes Physical Exam - Physical Exam General Appearance: Present: wd/wn, alert, no apparent distress Eye Exam: Normal inspection: bilateral Ears, Nose, Throat: Present: normal ENT inspection Neck: Present: normal inspection, nontender Respiratory: Present: no respiratory distress, normal breath sounds, no accessory muscle use, chest nontender, lungs clear Cardiovascular/Chest: Present: regular rate, rhythm, systolic murmur - 2/6 soft systolic Gastrointestinal/Abdominal: Present: normal bowel sounds, nontender, nondistended, soft Extremity Exam: Present: extremity edema - 3+ bilaterally Neurological Exam: Present: alert, oriented, normal mood/affect, no motor/ sensory deficits Skin Exam: Present: normal color, warm/dry ED Progress - Results and Orders Patient's Lab Results:: I have reviewed the patient's lab results. Results and Orders: Laboratory Tests 08/23/16 08/23/16 08/23/16 18:00 18:50 18:50 WBC 7.1 Hgb 11.6 L Hct 37.6 Plt Count 149 L Sodium 139 Potassium 4.0 Chloride 102 Carbon Dioxide 26.5 BUN 44 H Creatinine 1.49 H Est GFR (Non-Af Amer) 35 L Random Glucose 281 H Calcium 8.5 Calcium Adj for Albumin 9.1 Total Bilirubin 1.0 AST 26 ALT 26 Alkaline Phosphatase 125 B-Natriuretic Peptide 86262 H Total Protein 6.9 Albumin 2.9 L Urine Color Yellow Urine Appearance Clear Urine pH 5.5 Ur Specific [place] 1.015 Urine Protein Negative Urine Glucose (UA) Negative Urine Ketones Negative Urine Blood Negative Urine Nitrate Negative Urine Bilirubin Negative Urine Urobilinogen Normal Ur Leukocyte Esterase Negative Urine RBC None seen Urine WBC None seen Ur Epithelial Cells None seen Amorphous Sediment Moderate - 2+ H Urine Bacteria 1+ H Hyaline Casts 0-5 H Urine Culture Comments No culture indicated - Vital Signs Patient's Vital Signs:: I have reviewed the patient's vital signs. Vital Signs: Vital Signs 08/23/16 08/23/16 17:46 18:06 Temperature 36.4 C L Pulse Rate 62 64 Respiratory 21 H 26 H Rate Blood Pressure 123/82 132/78 O2 Sat by Pulse 93 93 Oximetry - X-Ray X-Ray #1 X-Ray: chest Interpretation: Interp. by nc X-ray Comments: bilateral pulmonary edema without effusion or consolidation - Progress/Reassessment Chief Complaint: General Assessment Progress Note-Subjective: We considered discharging the patient but family was worried because she lives alone. Sa02 began to drop down to 85-90%. CXR was taken and showed significant CHF/ pulmonary edema. Decision was made to admit for treatment for acute exacerbation of her CHF. 08/24/16 01:00 spoke with Kacy MONTOYA hospitalist, she agrees to admit the patient 08/24/16 02:48 Departure - Departure Clinical Impression: Fluid excess Qualifiers: Hypervolemia type: other Qualified Code(s): E87.79 - Other fluid overload Acute exacerbation of CHF (congestive heart failure) Qualifiers: Congestive heart failure type: unspecified congestive heart failure type Qualified Code(s): I50.9 - Heart failure, unspecified Disposition: [facility] Condition: Fair
[2016-08-23 18:29] LABS: Urine Bilirubin Negative (NEGATIVE); Urine Blood Negative /ul (NEGATIVE); Urine Ketone Negative (NEGATIVE); Urine Nitrite Negative (NEGATIVE); Urine Protein Negative (NEGATIVE); Urine Specific Gravity 1.015 SP.GR. (1.005-1.010); Urine Urobilinogen Normal (NORMAL); Urine pH 5.5 pH (5.0-7.0)
--- OUTSIDE RECORDS SUMMARY | 2016-08-23 18:30 | XMS REPORT | Continuity of Care Document ---
:1925 Author Organization [facility] ([facility]) Address [address] [place] [address] Phone [phone] Care Team Providers Name Role Phone Provider, No-Primary Care Primary Care Provider Unavailable Source Comments This disclosure is being made pursuant to the Care Everywhere program, applicable federal and state laws, and may not contain all informaitonavailable regarding this patient.[facility] ([facility]) Active Allergies and Adverse Reactions No Known Allergies Current Medications Prescription Sig. Disp. Refills Start Date End Date Status warfarin (COUMADIN) 3 mg Take 1 Tab by mouth 14 Tab 0 05/02/2010 Active tablet every evening. Indications: Pulmonary Thromboembolism moxifloxacin (AVELOX) Take 1 Tab by mouth 3 Tab 0 05/02/2010 Active 400 mg tablet daily. Indications: Bacterial Pneumonia hydrochlorothiazide Take 1 Tab by mouth 14 Tab 0 05/02/2010 Active (HYDRODIURIL) 12.5 mg daily. Indications: tablet Hypertension Active Problems Problem Noted Date Colon cancer 04/28/2010 Pulmonary embolism 04/28/2010 HTN (hypertension) 04/28/2010 DM (diabetes mellitus) 04/28/2010 Social History Tobacco Use Types Packs/Day Years Used Date Never Assessed Last Filed Vital Signs Vital Sign Reading Time Taken Blood Pressure 135/71 05/02/2010 4:00 PM LEARNING ADMINISTRATOR Pulse 85 05/02/2010 4:00 PM LEARNING ADMINISTRATOR Temperature 36.7 C (98.1 F) 05/02/2010 4:00 PM LEARNING ADMINISTRATOR Respiratory Rate 18 05/02/2010 4:00 PM LEARNING ADMINISTRATOR Height 1.651 m (5' 5") 04/28/2010 5:35 PM LEARNING ADMINISTRATOR Weight 92.1 kg (203 lb 0.7 oz) 04/28/2010 5:35 PM LEARNING ADMINISTRATOR Body Mass Index 33.79 04/28/2010 5:35 PM LEARNING ADMINISTRATOR Oxygen Saturation 95% 05/02/2010 4:00 PM LEARNING ADMINISTRATOR Plan of Care Health Maintenance Due Date Last Done Comments Hepatitis B Vaccine (1 of 3 - Primary Series) 1925 Tdap Vaccine 1938 DIABETIC: Cholesterol 1945 Diabetic: Hdl 1945 Diabetic: Ldl 1945 DIABETIC: Microalbumin 1945 DIABETIC: Triglycerides 1943 Td Vaccine 1945 Zoster Vaccine 1987 Pneumococcal Vaccine (1 of 2 - PCV13) 1992 DIABETIC: Hemoglobin A1C 10/27/2010 04/29/2010 DIABETIC: Foot Exam 11/15/2010 DIABETIC: Retinal Eye Exam 11/15/2010 Influenza Vaccine: Seasonal (#1) 01/03/2016 Results from Last 3 Months Not on file
[2016-08-23 18:37] LABS: Urine Amorphous Sediment Moderate - 2+ (NONE-FEW); Urine Appearance Clear; Urine Bacteria 1+; Urine Color Yellow; Urine Hyaline Cast 0-5 /LPF; Urine RBC None Seen /hpf (0-5); Urine WBC None Seen /hpf (0-5)
[2016-08-23 18:55] LABS: Hematocrit 37.6 % (37.0-47.0); Hemoglobin 11.6 gm/dL (12.5-16.0); Mean Cell Volume 87.4 fl (78-100); Mean Corpuscular Hgb Conc 30.9 g/dl (32-36); Mean Platelet Volume 10.4 fl (6.0-9.5); Neutrophil # 4.2 K/mm3 (1.3-6.0); Neutrophil % 58.7 % (42-75.0); Platelet Count 149 K/mm3 (150-450); Red Cell Distribution Width 16.3 % (11.5-14.0); White Blood Count 7.1 K/mm3 (4.0-10.5)
[2016-08-23 19:20] LABS: Albumin * 2.9 gm/dl (3.4-5.0); Anion Gap 14.5 mmol/L (6.8-13.8); BUN/Creatinine Ratio 29.5 (9.0-21.6); Ca. Corrected For Albumin 9.1 mg/dL (8.4-10.2); Calcium * 8.5 mg/dL (7.9-10.9); Carbon Dioxide 26.5 mmol/L (24-32.6); Total Protein 6.9 gm/dL (6.2-8.2)
[2016-08-23] MEDS ORDERED: NORMAL SALINE 1,000 ML IV ONE (20:43)
[2016-08-23] MEDS ORDERED: FUROSEMIDE 10 MG/ML VIAL IV ONE (20:45)
[2016-08-23] MEDS ORDERED: FUROSEMIDE 10 MG/ML VIAL ONE (20:53)
--- OUTSIDE RECORDS SUMMARY | 2016-08-24 01:09 | XMS REPORT | Continuity of Care Document ---
:1925 Author Organization [facility] ([facility]) Address [address] [place] [address] Phone [phone] Care Team Providers Name Role Phone Provider, No-Primary Care Primary Care Provider Unavailable Source Comments This disclosure is being made pursuant to the Care Everywhere program, applicable federal and state laws, and may not contain all informaitonavailable regarding this patient.[facility] ([facility]) Active Allergies and Adverse Reactions No Known [...] Taken Blood Pressure 135/71 05/02/2010 4:00 PM INSTRUMENTAL MUSIC TEACHER Pulse 85 05/02/2010 4:00 PM INSTRUMENTAL MUSIC TEACHER Temperature 36.7 C (98.1 F) 05/02/2010 4:00 PM INSTRUMENTAL MUSIC TEACHER Respiratory Rate 18 05/02/2010 4:00 PM INSTRUMENTAL MUSIC TEACHER Height 1.651 m (5' 5") 04/28/2010 5:35 PM INSTRUMENTAL MUSIC TEACHER Weight 92.1 kg (203 lb 0.7 oz) 04/28/2010 5:35 PM INSTRUMENTAL MUSIC TEACHER Body Mass Index 33.79 04/28/2010 5:35 PM INSTRUMENTAL MUSIC TEACHER Oxygen Saturation 95% 05/02/2010 4:00 PM INSTRUMENTAL MUSIC TEACHER Plan of Care Health Maintenance Due Date [...]
--- NOTE | 2016-08-24 01:58 | HP ---
Chief Complaint - Chief Complaint Date of Service: 08/24/16 Time of Service: 01:57 Chief Complaint: SOB, Increased Leg Swelling. History of Present Illness: Ms. New is a 89-yr-old W[place] pt of Dr. Octavia Hoff with a PMH of: Anemia, A-fib , CHF, GERD, HTN, HLD, IBS & Restless Legs Syndrome. History is obtained from pt's daughter January who states that for the last 2-3 days, pt has had increasing leg swelling and worsening SOB with exertion. She reports that pt has been very weak and has a lot of difficulty getting around the house due to the increased leg swelling. Today, they could not get her up from chair and so they called the EMS and she was brought to the [facility] ER. Pt denies coughing, fevers and chills. She also denies n/v, abd pain or diarrhea. During evaluation at the ED, the CXR showed findings consistent with pulmonary Edema. She also had increased swelling on her BLE. She received IV lasix at the ED and was able to diurese only 600ml. She will need to be admitted inpatient due to Acute CHF exacerbation which will respond well to continued IV diuretics. - Patient's Past Medical History Patient History - Medical: Anemia, Diabetes Type 2, Obesity, Other Patient History - Cardiac/Respiratory: Atrial Fibrillation, CHF, Hypertension, Hyperlipidemia Patient History - Cancer: Colon Patient History - Surgical Procedures: Cancer Surgery, Cataracts, Cholecystectomy, Colon Resection, Other Patient History - Other: None - Family History Brother Family History - Medical: Diabetes Type 2, Seizures Family History - Cardiac/Respiratory: No pertinent hx Father Family History - Medical: , Other Family History - Cardiac/Respiratory: History Unknown Mother Family History - Medical: , Diabetes Type 2 Family History - Cardiac/Respiratory: Hypertension - Social History Living Situations: home Abuse History: No History of abuse Psych History: No pertinent hx Smoking Status: Never smoker Have you smoked in the past 12 months: No Alcohol Use: none Drug Use: none - Immunizations Immunizations Up to Date: Yes Hx Pneumococcal Vaccination: Yes History of Influenza Vaccine: Yes Review Of Systems (GEN) - Review of Systems Generalized/Overall Review: Present: Weakness. Absent: Chills, Fever EENTM: Absent: Eye Pain, Nose Congestion Respiratory: Present: Shortness of Breath. Absent: Cough Cardiac: Absent: Chest Pain, Palpitations Abdominal: Absent: Nausea, Vomiting Genitourinary: Absent: Burning, Urgency Musculoskeletal: Absent: Back Pain Neurological: Absent: Anxiety, Depressed Skin: Present: Lesions, Bruising Endocrine: Absent: Intolerance to Cold, Intolerance to Heat, Increased Hunger, Increased Thirst Misc: All systems neg except as marked Allergies/Adverse Reactions: Allergies Allergy/AdvReac Type Severity Reaction Status Date / Time No Known Allergies Allergy Verified 08/23/16 17:51 Home Medications: HOME MEDICATIONS Albuterol Sulfate [Albuterol Sulfate 2.5 MG/3 ML] 2.5 mg IH Q6H PRN 08/24/16 [ Last Taken Unknown] Citalopram Hydrobromide [Citalopram HBr] 10 mg PO DAILY 08/24/16 [Last Taken ] Enalapril Maleate [Vasotec] 5 mg PO DAILY 08/24/16 [Last Taken 08/23/16] Furosemide [Lasix] 40 mg PO BID 08/24/16 [Last Taken 08/23/16] Metoprolol Succinate [Toprol Xl] 50 mg PO DAILY 08/24/16 [Last Taken 08/23/16] Nitroglycerin [Nitrostat] 0.4 mg SL Q5MIN PRN 08/24/16 [Last Taken Unknown] Nystatin [Mycostatin Powder] 1 appl TP BID 08/24/16 [Last Taken 08/23/16] Omeprazole [Prilosec] 20 mg PO DAILY 08/24/16 [Last Taken 08/23/16] Simvastatin [Zocor] 40 mg PO HS 08/24/16 [Last Taken 08/22/16] Warfarin Sodium [Jantoven] 3 mg PO DAILY 08/24/16 [Last Taken 08/23/16] glyBURIDE [Micronase] 5 mg PO BIDAC 08/24/16 [Last Taken 08/23/16] traMADol HCL [Ultram] 50 mg PO DAILY PRN 08/24/16 [Last Taken Unknown] Exam - Exam Vital Signs: Vital Signs - Last Taken Temp 37.2 C 08/23/16 21:02 Pulse 46 L 08/24/16 01:07 Resp 24 H 08/24/16 01:07 BP 113/61 08/24/16 01:07 Pulse Ox 96 08/24/16 01:07 Constitutional: Present: Alert, Oriented x3, Cooperative, No distress ENT Exam: Present: hearing grossly normal. Absent: nasal congestion, nasal drainage Eye Exam: bilateral eye: normal inspection, PERRL Neck: Present: full range of motion, supple, normal inspection Back Exam: Present: normal inspection, no CVA tenderness Breasts: Present: Exam deferred Respiratory: Present: rales - Throughout the Lung Yang. Cardiovascular/Chest: Present: normal peripheral pulses, no chest tenderness, irregularly irregular Abdomen: Present: Normal bowel sounds, soft, nontender /Rectal: Present: Exam deferred Extremity: Present: non-tender, normal inspection, lower extremity edema - + 3- 4 BLE. Skin Exam: Present: cool/dry, other - Scattered lesions on trunk. Lymphatic: Present: no adenopathy Neurologic: Present: no motor/sensory deficits, alert, oriented x 3. Absent: dizzy/light-headedness Appearance: Present: appropriate appearance, appropriate insight Eye contact: Present: cooperative, good eye contact, normal speech Thoughts: Present: normal thought pattern, no apparent hallucination Diagnostic Studies: Laboratory Results WBC 7.1 K/mm3 (4.0-10.5) 08/23/16 18:50 RBC 4.30 M/mm3 (4.2-5.4) 08/23/16 18:50 Hgb 11.6 gm/dL (12.5-16.0) L 08/23/16 18:50 Hct 37.6 % (37.0-47.0) 08/23/16 18:50 MCV 87.4 fl (78-100) 08/23/16 18:50 MCH 27.0 pg (27-31) 08/23/16 18:50 MCHC 30.9 g/dl (32-36) L 08/23/16 18:50 RDW 16.3 % (11.5-14.0) H 08/23/16 18:50 Plt Count 149 K/mm3 (150-450) L 08/23/16 18:50 MPV 10.4 fl (6.0-9.5) H 08/23/16 18:50 Immature Gran % (Auto) 0.30 % (0.001-0.429) 08/23/16 18:50 Immature Gran # (Auto) 0.02 K/mm3 (0.000-0.0310) 08/23/16 18:50 Neutrophils % 58.7 % (42-75.0) 08/23/16 18:50 Lymphocytes % 31.2 % (20-51) 08/23/16 18:50 Monocytes % 7.6 % (0.0-9) 08/23/16 18:50 Eosinophils % 1.8 % (0.0-3.0) 08/23/16 18:50 Basophils % 0.4 % (0.0-1.0) 08/23/16 18:50 Nucleated RBC % 0.0 k/mm3 (0-1) 08/23/16 18:50 Neutrophils # 4.2 K/mm3 (1.3-6.0) 08/23/16 18:50 Lymphocytes # 2.2 k/mm3 (1.5-3.5) 08/23/16 18:50 Monocytes # 0.5 k/mm3 (0.0-1.0) 08/23/16 18:50 Eosinophils # 0.1 k/mm3 (0.0-0.7) 08/23/16 18:50 Absolute Basophils 0.0 k/mm3 (0.0-0.1) 08/23/16 18:50 Sodium 139 mmol/L (132-142) 08/23/16 18:50 Plasma Sodium 142 mmol/L (130-142) 08/23/16 18:50 Potassium 4.0 mmol/L (3.4-4.6) 08/23/16 18:50 Chloride 102 mmol/L (97-106) 08/23/16 18:50 Carbon Dioxide 26.5 mmol/L (24-32.6) 08/23/16 18:50 Anion Gap 14.5 mmol/L (6.8-13.8) H 08/23/16 18:50 BUN 44 mg/dL (3-23) H 08/23/16 18:50 Creatinine 1.49 mg/dL (0.4-1.4) H 08/23/16 18:50 Est GFR (Non-Af Amer) 35 mL/min (60-130) L 08/23/16 18:50 BUN/Creatinine Ratio 29.5 (9.0-21.6) H 08/23/16 18:50 Random Glucose 281 mg/dL (70-110) H 08/23/16 18:50 Calcium 8.5 mg/dL (7.9-10.9) 08/23/16 18:50 Calcium Adj for Albumin 9.1 mg/dL (8.4-10.2) 08/23/16 18:50 Total Bilirubin 1.0 mg/dL (0.0-1.1) 08/23/16 18:50 AST 26 U/L (0-48) 08/23/16 18:50 ALT 26 U/L (19-67) 08/23/16 18:50 Alkaline Phosphatase 125 U/L (50-170) 08/23/16 18:50 B-Natriuretic Peptide 51929 pg/mL (5-550) H 08/23/16 18:50 Total Protein 6.9 gm/dL (6.2-8.2) 08/23/16 18:50 Albumin 2.9 gm/dl (3.4-5.0) L 08/23/16 18:50 Urine Color Yellow 08/23/16 18:00 Urine Appearance Clear 08/23/16 18:00 Urine pH 5.5 pH (5.0-7.0) 08/23/16 18:00 Ur Specific [place] 1.015 SP.GR. (1.005-1.010) 08/23/16 18:00 Urine Protein Negative mg/dL (NEGATIVE) 08/23/16 18:00 Urine Glucose (UA) Negative mg/dL (NEGATIVE) 08/23/16 18:00 Urine Ketones Negative mg/dL (NEGATIVE) 08/23/16 18:00 Urine Blood Negative /ul (NEGATIVE) 08/23/16 18:00 Urine Nitrate Negative (NEGATIVE) 08/23/16 18:00 Urine Bilirubin Negative mg/dl (NEGATIVE) 08/23/16 18:00 Urine Urobilinogen Normal EU/dl (NORMAL) 08/23/16 18:00 Ur Leukocyte Esterase Negative /ul (NEGATIVE) 08/23/16 18:00 Urine RBC None seen /hpf (0-5) 08/23/16 18:00 Urine WBC None seen /hpf (0-5) 08/23/16 18:00 Ur Epithelial Cells None seen /hpf (0-5) 08/23/16 18:00 Amorphous Sediment Moderate - 2+ (NONE-FEW) H 08/23/16 18:00 Urine Bacteria 1+ (NONE) H 08/23/16 18:00 Hyaline Casts 0-5 /LPF (NONE) H 08/23/16 18:00 Urine Culture Comments No culture indicated 08/23/16 18:00 Assessment/Plan - Assessment/Plan (1) Acute exacerbation of CHF (congestive heart failure) Assessment: CHF exacerbation noted with fluid overload signs and pulmonary edema findings on CXR. Will need to be admitted inpatient and diuresed with IV Lasix to relieve the symptoms. Hold PO Lasix doses for now. Will adjust the dose daily based on urine output, changes in signs of congestion & BP. Monitor electrolytes , & kidney function. Keep up with CHF teaching, Accurate I & O's, Daily Wt & Low salt diet. Problem: Acute Qualifiers: Congestive heart failure type: unspecified congestive heart failure type Qualified Code(s): I50.9 - Heart failure, unspecified (2) Generalized weakness Assessment: Will involve PT/OT for strengthening. Encourage Ambulation. Problem: Acute (3) A-fib Assessment: Will place on Remote telemetry monitoring- On coumadin. Problem: Acute (4) Diabetes Assessment: Accu checks AC/HS- Continue Glipizide. Problem: Chronic Qualifiers: Diabetes mellitus type: type 2 (5) HTN (hypertension) Assessment: Stable- On enapril & Metoprolol. Problem: Chronic Qualifiers: Hypertension type: essential hypertension Qualified Code(s): I10 - Essential (primary) hypertension (6) GERD (gastroesophageal reflux disease) Problem: Chronic
[2016-08-24] MEDS ORDERED: METOLAZONE 5 MG TABLET PO ONE (02:01)
[2016-08-24] MEDS ORDERED: FUROSEMIDE 10 MG/ML VIAL IV ONE (02:04)
[2016-08-24] MEDS ORDERED: ALBUTEROL SULFATE 2.5 MG/3 ML VIAL.NEB IH PRN (02:33)
[2016-08-24] MEDS ORDERED: NITROGLYCERIN 0.4 MG/TAB BTL SL PRN (02:33)
[2016-08-24 06:01] LABS: Hematocrit 35.2 % (37.0-47.0); Hemoglobin 10.9 gm/dL (12.5-16.0); Mean Cell Volume 86.3 fl (78-100); Mean Corpuscular Hemoglobin 26.7 pg (27-31); Mean Platelet Volume 10.9 fl (6.0-9.5); Neutrophil # 3.4 K/mm3 (1.3-6.0); Neutrophil % 57.6 % (42-75.0); Platelet Count 126 K/mm3 (150-450); Red Blood Count 4.08 M/mm3 (4.2-5.4); Red Cell Distribution Width 16.2 % (11.5-14.0); White Blood Count 5.8 K/mm3 (4.0-10.5)
[2016-08-24 06:19] LABS: Anion Gap 12.6 mmol/L (6.8-13.8); BUN/Creatinine Ratio 28.1 (9.0-21.6); Calcium * 8.4 mg/dL (7.9-10.9); Estimated Creat Clear 22.6; Potassium 3.6 mmol/L (3.4-4.6)
[2016-08-24] MEDS ORDERED: glyBURIDE 5 MG TABLET PO SCH (07:00)
[2016-08-24 07:18] LABS: Prothrombin Time (Patient) 28.8 Seconds (9.4-11.4)
[2016-08-24 07:22] LABS: INR 2.77 INR (0.90-1.10)
[2016-08-24] MEDS: PANTOPRAZOLE SODIUM 20 MG TABLET.DR PO SCH (07:46)
[2016-08-24] MEDS ORDERED: FUROSEMIDE 10 MG/ML VIAL IV SCH (09:00)
[2016-08-24] MEDS: ENALAPRIL MALEATE 5 MG TABLET PO SCH (10:05)
[2016-08-24] MEDS: FUROSEMIDE 10 MG/ML VIAL IV SCH ×2 (10:05→20:19)
[2016-08-24] MEDS: METOPROLOL SUCCINATE 50 MG TABLET.SA PO SCH (10:05)
[2016-08-24] MEDS: CITALOPRAM HYDROBROMIDE 10 MG TABLET PO SCH (10:05)
[2016-08-24] MEDS: NYSTATIN 15 APPL BTL TP SCH ×2 (10:05→20:18)
[2016-08-24] MEDS: POTASSIUM CHLORIDE 20 MEQ TABLET.SA PO SCH (10:05)
[2016-08-24] MEDS: WARFARIN SODIUM 3 MG TABLET PO SCH (16:19)
[2016-08-24] MEDS: glyBURIDE 5 MG TABLET PO SCH (17:27)
[2016-08-24] MEDS: INSULIN LISPRO 100 UNITS/ML VIAL SC SCH (17:27)
[2016-08-24] MEDS: traMADol HCL 50 MG TABLET PO PRN (20:02)
[2016-08-24] MEDS: SIMVASTATIN 40 MG TABLET PO SCH (20:18)
[2016-08-25 06:11] LABS: Prothrombin Time (Patient) 31.5 Seconds (9.4-11.4)
[2016-08-25 06:38] LABS: INR 3.03 INR (0.90-1.10)
[2016-08-25] MEDS: INSULIN LISPRO 100 UNITS/ML VIAL SC SCH ×3 (06:53→17:31)
[2016-08-25] MEDS: glyBURIDE 5 MG TABLET PO SCH ×2 (06:55→17:31)
[2016-08-25] MEDS: PANTOPRAZOLE SODIUM 20 MG TABLET.DR PO SCH (06:55)
[2016-08-25] MEDS: traMADol HCL 50 MG TABLET PO PRN (06:55)
[2016-08-25 09:12] LABS: Hematocrit 37.7 % (37.0-47.0); Hemoglobin 11.8 gm/dL (12.5-16.0); Mean Cell Volume 86.5 fl (78-100); Mean Corpuscular Hemoglobin 27.1 pg (27-31); Mean Corpuscular Hgb Conc 31.3 g/dl (32-36); Mean Platelet Volume 11.3 fl (6.0-9.5); Neutrophil # 5.3 K/mm3 (1.3-6.0); Neutrophil % 67.1 % (42-75.0); Platelet Count 168 K/mm3 (150-450); Red Blood Count 4.36 M/mm3 (4.2-5.4); Red Cell Distribution Width 16.3 % (11.5-14.0); White Blood Count 7.9 K/mm3 (4.0-10.5)
[2016-08-25] MEDS: POTASSIUM CHLORIDE 20 MEQ TABLET.SA PO SCH (09:20)
[2016-08-25] MEDS: METOPROLOL SUCCINATE 50 MG TABLET.SA PO SCH (09:21)
[2016-08-25] MEDS: CITALOPRAM HYDROBROMIDE 10 MG TABLET PO SCH (09:21)
[2016-08-25] MEDS: NYSTATIN 15 APPL BTL TP SCH ×2 (09:21→20:36)
[2016-08-25] MEDS: ENALAPRIL MALEATE 5 MG TABLET PO SCH (09:21)
[2016-08-25 09:48] LABS: Albumin * 2.7 gm/dl (3.4-5.0); Anion Gap 13.4 mmol/L (6.8-13.8); BUN/Creatinine Ratio 26.3 (9.0-21.6); Bilirubin, Total 1.4 mg/dL (0.0-1.1); Calcium * 8.3 mg/dL (7.9-10.9); Carbon Dioxide 27.8 mmol/L (24-32.6); Potassium 4.2 mmol/L (3.4-4.6); Total Protein 6.6 gm/dL (6.2-8.2)
[2016-08-25] MEDS ORDERED: FUROSEMIDE 10 MG/ML VIAL IV ONE (13:57)
--- NOTE | 2016-08-25 15:26 | PN ---
Subjective - Date and Time Seen Date: 08/25/16 Time: 15:19 Subjective Narrative: Breathing better, but very weak. Attempted to get out of bed and she was unable to ambulate on her own. Denies chest pain, n/v/f/c. Daughter reports legs are more swollen than usual still. Objective - Vitals Vitals: Last Vital Signs Temp 36.8 C 08/25/16 14:00 Pulse 64 08/25/16 14:37 Resp 18 08/25/16 14:00 BP 113/69 08/25/16 14:37 Pulse Ox 96 08/25/16 14:00 - Abnormal Lab Findings Abnormal Lab Findings: Abnormal Lab Results 08/25/16 08/25/16 08/25/16 Range/Units 05:00 08:42 09:10 Hgb 11.8 L (12.5-16.0) gm/dL MCHC 31.3 L (32-36) g/dl RDW 16.3 H (11.5-14.0) % MPV 11.3 H (6.0-9.5) fl PT 31.5 H (9.4-11.4) Seconds INR (Anticoag Therapy) 3.03 H (0.90-1.10) INR BUN 40 H (3-23) mg/dL Creatinine 1.52 H (0.4-1.4) mg/dL Est GFR (Non-Af Amer) 34 L (60-130) mL/min BUN/Creatinine Ratio 26.3 H (9.0-21.6) Random Glucose 209 H (70-110) mg/dL Total Bilirubin 1.4 H (0.0-1.1) mg/dL Albumin 2.7 L (3.4-5.0) gm/dl - Exam Constitutional: Present: Alert, Oriented x3, Cooperative, Somnolent Respiratory: Present: lungs clear, normal breath sounds Cardiovascular/Chest: Present: regular rate, rhythm, no murmur Abdomen: Present: Normal bowel sounds, soft, nontender, nondistended Extremity: Present: lower extremity edema - 2+ Cauti Physician Documentation - Urinary Catheter Management Uretheral (Torres) Date of Insertion: 08/23/16 Time of Insertion: 17:46 Assessment/Plan - Problems/Diagnosis (1) Acute on chronic diastolic (congestive) heart failure Problem: Acute Narrative: She has diuresed well, but still edematous. Poor ambulation, potentially from narcotics. Will stop narcotics. Encourage ambulation. Will give additional dose of lasix. Unable to discharge to home today as she is unable to ambulate and lives at home by herself. (2) Generalized weakness Problem: Acute
[2016-08-25] MEDS: WARFARIN SODIUM 3 MG TABLET PO SCH (17:31)
[2016-08-25] MEDS: SIMVASTATIN 40 MG TABLET PO SCH (20:36)
[2016-08-26 05:49] LABS: Prothrombin Time (Patient) 36.8 Seconds (9.4-11.4)
[2016-08-26 05:50] LABS: INR 3.54 INR (0.90-1.10)
[2016-08-26] MEDS: INSULIN LISPRO 100 UNITS/ML VIAL SC SCH ×2 (06:48→11:51)
[2016-08-26] MEDS: glyBURIDE 5 MG TABLET PO SCH (06:49)
[2016-08-26] MEDS: PANTOPRAZOLE SODIUM 20 MG TABLET.DR PO SCH (06:49)
[2016-08-26] MEDS: POTASSIUM CHLORIDE 20 MEQ TABLET.SA PO SCH (08:13)
[2016-08-26] MEDS: NYSTATIN 15 APPL BTL TP SCH (08:13)
[2016-08-26] MEDS: CITALOPRAM HYDROBROMIDE 10 MG TABLET PO SCH (08:13)
[2016-08-26] MEDS: ENALAPRIL MALEATE 5 MG TABLET PO SCH (08:14)
[2016-08-26] MEDS: METOPROLOL SUCCINATE 50 MG TABLET.SA PO SCH (08:14)
[2016-08-26] MEDS: traMADol HCL 50 MG TABLET PO PRN (08:46)
--- NOTE | 2016-08-26 10:19 | DS ---
(1) A-fib Problem: Acute Qualifiers: Atrial fibrillation type: chronic Qualified Code(s): I48.2 - Chronic atrial fibrillation (2) Acute on chronic diastolic (congestive) heart failure Problem: Acute (3) Fluid excess Problem: Acute Qualifiers: Hypervolemia type: other Qualified Code(s): E87.79 - Other fluid overload (4) Generalized weakness Problem: Acute (5) Diabetes Problem: Chronic Qualifiers: Diabetes mellitus type: type 2 Diabetes mellitus complication status: with unspecified complications Diabetes mellitus director long term care insulin use: unspecified detention insulin use status Qualified Code(s): E11.8 - Type 2 diabetes mellitus with unspecified complications (6) HTN (hypertension) Problem: Chronic Qualifiers: Hypertension type: essential hypertension Qualified Code(s): I10 - Essential (primary) hypertension (7) HLD (hyperlipidemia) Problem: Chronic Qualifiers: Hyperlipidemia type: mixed hyperlipidemia Qualified Code(s): E78.2 - Mixed hyperlipidemia Description of Stay: Ms. New is a 89-yr-old WF pt of Dr. Octavia Hoff with a PMH of: Anemia, A-fib , CHF, GERD, HTN, HLD, IBS & Restless Legs Syndrome. History is obtained from pt's daughter January who states that for the last 2-3 days, pt has had increasing leg swelling and worsening SOB with exertion. She reports that pt has been very weak and has a lot of difficulty getting around the house due to the increased leg swelling. Today, they could not get her up from chair and so they called the EMS and she was brought to the [facility] ER. Pt denies coughing, fevers and chills. She also denies n/v, abd pain or diarrhea. During evaluation at the ED, the CXR showed findings consistent with pulmonary Edema. She also had increased swelling on her BLE. She received IV lasix at the ED and was able to diurese only 600ml. She will need to be admitted inpatient due to Acute CHF exacerbation which will respond well to continued IV diuretics. pt was diuresed with IV lasix over the course of admission. weakness improved with diuresis and with discontinuation of narcotics. on the day of discharge, she was able to walk in the casey with assistance and deemed stable for discharge. chf teaching done during admission. Procedures Performed: none Discharge Disposition: Home self care Disposition: Home self-care Condition: Stable Discharge Activity: Activity as tolerated Discharge Diet: Consistent carbs, Low salt Referrals: Octavia Hoff MD [Primary Care Provider] - Problem Oriented Discharge Instructions to Patient/Family: Heart Failure, Easy- to-Read, CHF Patient Instructions Additional Patient Instructions (free text): Resume Mobile [facility] upon discharge. Call nursing report at discharge. weigh self daily. call doctor if you gain or lose more than 3-4 lbs in a day. low salt diet. No coumadin today, restart 3 mg Daily on Sunday. Check INR on Sunday Complete Home Medications List: Complete Home Medication List: Albuterol Sulfate [Albuterol Sulfate 2.5 MG/3 ML] 2.5 mg IH Q6H PRN 08/24/16 Citalopram Hydrobromide [Citalopram HBr] 10 mg PO DAILY 08/24/16 Enalapril Maleate [Vasotec] 5 mg PO DAILY 08/24/16 Furosemide [Lasix] 40 mg PO BID 08/24/16 Metoprolol Succinate [Toprol Xl] 50 mg PO DAILY 08/24/16 Nitroglycerin [Nitrostat] 0.4 mg SL Q5MIN PRN 08/24/16 Nystatin [Mycostatin Powder] 1 appl TP BID 08/24/16 Omeprazole [Prilosec] 20 mg PO DAILY 08/24/16 Simvastatin [Zocor] 40 mg PO HS 08/24/16 Warfarin Sodium [Jantoven] 3 mg PO DAILY 08/24/16 traMADol HCL [Ultram] 50 mg PO DAILY PRN 08/24/16 Potassium Chloride [K-Dur] 40 meq PO DAILY tablet.sa 08/26/16 glyBURIDE [Micronase] 5 mg PO BIDAC tablet 08/26/16
[2016-08-26 11:12] VITALS: BP 128/73
[2016-08-27] MEDS ORDERED: WARFARIN SODIUM 1 TAB TAB PO SCH (17:00)
== END 2016-08-26 13:52 | disposition home or self-care (01) ==
LOC: ER 17:44 → MS 08-24 01:04 → INTOOBSV 08-24 01:04
PROVIDERS: ADMIT Nurse Practitioner; ATTEND Family Medicine
PROC: 0T9B70Z Drainage of Bladder with Drainage Device, Via Natural or Artificial Opening (ICD-10-PCS; principal; 2016-08-23)
DX: I50.33 Acute on chronic diastolic (congestive) heart failure (principal); I48.2 Chronic atrial fibrillation; E11.8 Type 2 diabetes mellitus with unspecified complications; I10 Essential (primary) hypertension; E78.2 Mixed hyperlipidemia; R53.1 Weakness; E87.70 Fluid overload, unspecified; E66.9 Obesity, unspecified; Z79.4 Long term (current) use of insulin
CPT/HCPCS: 36415; 51702; 71010; 80048; 80053; 81001; 83880; 85025; 85610; 96374; 96376; 97110; 97116; 97162; 97530; 97535; 99284; G0378; G8978; G8979; G8980; G8987; G8988; G8989

== ENCOUNTER 2016-10-17 11:54 | Emergency (ER) | payer MEDICARE, BC, OTHER ==
--- NOTE | 2016-10-17 12:26 | ERNOTE ---
Dyspnea - Date Date of Service: 10/17/16 - General Time Seen by Provider: 10/17/16 12:22 Source: patient, family - Immun/Allergies/Home Medications Immunizations: IMMUNIZATION HX Immunizations Up to Date Yes History of Influenza Vaccine Yes Hx Pneumococcal Vaccination Yes Allergies/Adverse Reactions: Allergies No Known Allergies Allergy (Verified 10/17/16 12:16) Home Medications: HOME MEDICATIONS Albuterol Sulfate [Albuterol Sulfate 2.5 MG/3 ML] 2.5 mg IH Q6H PRN 08/24/16 [ Last Taken Unknown] Citalopram Hydrobromide [Citalopram HBr] 10 mg PO DAILY 08/24/16 [Last Taken ] Enalapril Maleate [Vasotec] 5 mg PO DAILY 08/24/16 [Last Taken 08/23/16] Furosemide [Lasix] 40 mg PO BID 08/24/16 [Last Taken 08/23/16] Metoprolol Succinate [Toprol Xl] 50 mg PO DAILY 08/24/16 [Last Taken 08/23/16] Nitroglycerin [Nitrostat] 0.4 mg SL Q5MIN PRN 08/24/16 [Last Taken Unknown] Nystatin [Mycostatin Powder] 1 appl TP BID 08/24/16 [Last Taken 08/23/16] Omeprazole [Prilosec] 20 mg PO DAILY 08/24/16 [Last Taken 08/23/16] Simvastatin [Zocor] 40 mg PO HS 08/24/16 [Last Taken 08/22/16] Warfarin Sodium [Jantoven] 3 mg PO DAILY 08/24/16 [Last Taken 08/23/16] traMADol HCL [Ultram] 50 mg PO DAILY PRN 08/24/16 [Last Taken Unknown] Potassium Chloride [K-Dur] 40 meq PO DAILY tablet.sa 08/26/16 [Last Taken Unknown] glyBURIDE [Micronase] 5 mg PO BIDAC tablet 08/26/16 [Last Taken Unknown] Hydrochlorothiazide [Hydrodiuril] 25 mg PO DAILY #4 tablet 10/17/16 [Last Taken Unknown] - History of Present Illness Narrative: PT BROUGHT IN BY FAMILY WITH C/O OF BILATERAL DISTAL EDEMA. WITH WEEPING OF LEFT LEG . SHE JUST GOT OUT OF THE [facility] SE[facility] AFTER BEING IN THE HOSPITAL 2 MOS AGO FOR LEG EDEMA AND SOB. NO NEW SOB. INITIALLY SHE WAS USING THE [facility] HOSE AND GETTING DAILY WEIGHTS THRU HOME HEALTH NURSING BUT THE PT QUIT USING THE HOSE AND DAUGHTER NOT SURE WHEN THE LAST TIME HER WEIGHTS WERE TAKEN. SHE HAS BEEN GETTING HER MEDS THRU HOME NURSE. DAUGHTER THINKS SHE NEEDS TO BE BACK IN THE HOSPITAL BECAUSE OF THE LEG SWELLING. WHEN THE NURSE TRIED PUTTING HER SOCKS ON TODAY HER SKIN TO LEFT LOWER LEG GOT NICKED AND IT HAS HAD SOME SEROUS OOZING SINCE. THEY CAME TO THE ER BECAUSE HER FAMILY DOCTOR IS ON VACATION AND SHE COULDN'T GET IN TO THE CLINIC. MD ADMITS TO NOT DOING MUCH WALLKING OR LEG EXERCISES WHEN SITTING OR LAYING. SHE HAS HAD INSTRUCTION THRU HOME P.T. VISITS. Review of Systems - Review of Systems Constitutional: Present: See HPI Skin: Present: See HPI, other - INCREASING LEG EDEMA OVER THE PAST WEEK. Psych: Present: no symptoms reported - Patient's Past Medical History Patient History - Medical: Anemia, Diabetes Type 2, Obesity, Other Patient History - Cardiac/Respiratory: Atrial Fibrillation, CHF, Hypertension, Hyperlipidemia Patient History - Cancer: Colon Patient History - Surgical Procedures: Cancer Surgery, Cataracts, Cholecystectomy, Colon Resection, Other Patient History - Other: None - Family History Brother Family History - Medical: Diabetes Type 2, Seizures Family History - Cardiac/Respiratory: No pertinent hx Father Family History - Medical: , Other Family History - Cardiac/Respiratory: History Unknown Mother Family History - Medical: , Diabetes Type 2 Family History - Cardiac/Respiratory: Hypertension - Social History Living Situations: home Abuse History: No History of abuse Psych History: No pertinent hx Smoking Status: Never smoker Have you smoked in the past 12 months: No Alcohol Use: none Drug Use: none - Immunizations Immunizations Up to Date: Yes Hx Pneumococcal Vaccination: Yes History of Influenza Vaccine: Yes Physical Exam - Physical Exam General Appearance: Present: wd/wn, alert, no apparent distress - PT HER SELF IS VERY PLACID AND THOUGH ALERT WILL HARDLY SPPEAK OR HAVE EYE CONTACT. SHE IS A SHORT OBESE ELDERLY LADY WITH VSS. Respiratory: Present: no respiratory distress, normal breath sounds, no accessory muscle use, chest nontender, lungs clear Cardiovascular/Chest: Present: regular rate, rhythm, no murmur Gastrointestinal/Abdominal: Present: nontender, soft Extremity Exam: Present: pedal edema - EDEMA TO ABOVE HER KNEES = 3-4 + PITTING WITH SEROUS OOZING FROM RECENT SMALL SCRATCH TO LEFT LATERAL LOWER 1/3 OF LEG. Neurological Exam: Present: alert, oriented, other - ACTS ALMOST DIS - INTERESTED. Skin Exam: Present: normal color, warm/dry ED Progress - Results and Orders Patient's Lab Results:: I have reviewed the patient's lab results. Results and Orders: LABS ARE STABLE FOR HER WITH ELEVATED BNP . MILD TROP. ELEVATION. EXCEPTION IS INR = 4.5 , WAS 4.8 ON . - Vital Signs Patient's Vital Signs:: I have reviewed the patient's vital signs. Vital Signs: Vital Signs 10/17/16 12:12 Temperature 36.4 C L Pulse Rate 65 Respiratory 20 Rate Blood Pressure 104/54 O2 Sat by Pulse 91 Oximetry - EKG EKG: NSR EKG read: Interp. by ut - [facility] . [employer] RBB. = UNCHANGED SINCE PREVIOUS. - X-Ray X-Ray #1 X-Ray: chest Interpretation: Reviewed by me - Progress/Reassessment Chief Complaint: Dyspnea Plan - Plan Plan: D/W DR LIBBY BURRIS WHO WOULD LIKE TO SEE HER IN THE CLINIC ON SUNDAY AFTER SOME TEMPORARY MEDICATION ADJUSTMENTS. ( INCREASE THE LASIX, ADD HCTZ FOR 3-4 DAYS , HOLD THE COUMADIN TILL HE SEES HER) . Departure Clinical Impression: Pedal edema, Elevated INR - Departure Disposition: Home Follow Up Needed Condition: Fair Instructions: Edema, [id number], Warfarin Coagulopathy Additional Instructions: DR BK BURRIS WOULD LIKE YOU TO INCREASE YOUR LASIX TO 80 MG TWICE A DAY ( THAT IS DOUBLE OF WHAT YOU NOW TAKE). WE WILL ALSO ADD A SMALL DOES OF HYDROCHLORATHIAZIDE(HCTZ) , JUST UNTIL HE HE WANTS YOU TO MAKE AN APPOINTMENT TO SEE HIM BACK IN THE OFFICE FOR RECHECK. HE ALSO WOULD LIKE YOU TO STOP THE COUMADIN(WARFARIN) UNTIL HE RECHECKS YOU ON SUNDAY. TAKE AND RECORD YOUR WEIGHT ABOUT THE SAME TIME EVERY DAY. USE YOUR COMPRESSIVE HOSE. AND KEEP YOUR FEET ELEVATED ABOVE YOUR HEART UNLESS YOU ARE UP WALKING AROUND. Referrals: Octavia Hoff MD [Primary Care Provider] - Prescriptions: Hydrochlorothiazide [Hydrodiuril] 25 mg PO DAILY #4 tablet
[2016-10-17] MEDS ORDERED: FUROSEMIDE 10 MG/ML VIAL IV ONE (12:35)
[2016-10-17 12:38] LABS: Hematocrit 32.6 % (37.0-47.0); Hemoglobin 10.4 gm/dL (12.5-16.0); Mean Cell Volume 83.8 fl (78-100); Mean Corpuscular Hemoglobin 26.7 pg (27-31); Mean Corpuscular Hgb Conc 31.9 g/dl (32-36); Mean Platelet Volume 9.9 fl (6.0-9.5); Neutrophil # 4.2 K/mm3 (1.3-6.0); Neutrophil % 66.5 % (42-75.0); Platelet Count 219 K/mm3 (150-450); Red Blood Count 3.89 M/mm3 (4.2-5.4); Red Cell Distribution Width 17.2 % (11.5-14.0); White Blood Count 6.4 K/mm3 (4.0-10.5)
[2016-10-17 12:49] LABS: Prothrombin Time (Patient) 47.2 Seconds (9.4-11.4)
[2016-10-17 12:51] LABS: INR 4.54 INR (0.90-1.10)
[2016-10-17 12:53] LABS: Troponin I 0.024 ng/ml (0.00-0.10)
[2016-10-17 12:55] LABS: Albumin * 2.6 gm/dl (3.4-5.0); BUN/Creatinine Ratio 28.1 (9.0-21.6); Bilirubin, Total 0.8 mg/dL (0.0-1.1); Ca. Corrected For Albumin 9.1 mg/dL (8.4-10.2); Calcium * 8.3 mg/dL (7.9-10.9); Total Protein 6.9 gm/dL (6.2-8.2)
[2016-10-17] MEDS ORDERED: FUROSEMIDE 10 MG/ML VIAL ONE (13:03)
--- OUTSIDE RECORDS SUMMARY | 2016-10-17 13:04 | XMS REPORT | Continuity of Care Document ---
:1925 Author Organization [facility] ([facility]) Address [address] [place] [address] Phone [phone] Care Team Providers Name Role Phone Provider, No-Primary Care Primary Care Provider Unavailable Source Comments This disclosure is being made pursuant to the Care Everywhere program, applicable federal and state laws, and may not contain all informaitonavailable regarding this patient.[facility] ([facility]) Active Allergies and Adverse Reactions [...] Taken Blood Pressure 135/71 05/02/2010 4:00 PM COLLAR WORKER Pulse 85 05/02/2010 4:00 PM COLLAR WORKER Temperature 36.7 C (98.1 F) 05/02/2010 4:00 PM COLLAR WORKER Respiratory Rate 18 05/02/2010 4:00 PM COLLAR WORKER Height 1.651 m (5' 5") 04/28/2010 5:35 PM COLLAR WORKER Weight 92.1 kg (203 lb 0.7 oz) 04/28/2010 5:35 PM COLLAR WORKER Body Mass Index 33.79 04/28/2010 5:35 PM COLLAR WORKER Oxygen Saturation 95% 05/02/2010 4:00 PM COLLAR WORKER Plan of Care Health Maintenance Due Date [...]
[2016-10-17 14:44] VITALS: BP 103/51
== END 2016-10-17 14:52 | disposition home or self-care (01) ==
LOC: ER 11:54
DX: Z85.038 Personal history of other malignant neoplasm of large intestine (principal); D64.9 Anemia, unspecified; E11.9 Type 2 diabetes mellitus without complications; I48.91 Unspecified atrial fibrillation; Z79.01 Long term (current) use of anticoagulants; I50.9 Heart failure, unspecified; I10 Essential (primary) hypertension; E78.5 Hyperlipidemia, unspecified

== ENCOUNTER 2016-11-14 14:57 | Inpatient (IN) | payer MEDICARE, BC, OTHER ==
[2016-11-14 15:33] LABS: Hematocrit 36.2 % (37.0-47.0); Hemoglobin 11.5 gm/dL (12.5-16.0); Mean Corpuscular Hgb Conc 31.8 g/dl (32-36); Mean Platelet Volume 10.8 fl (6.0-9.5); Neutrophil # 4.2 K/mm3 (1.3-6.0); Platelet Count 191 K/mm3 (150-450); Red Blood Count 4.26 M/mm3 (4.2-5.4); Red Cell Distribution Width 17.2 % (11.5-14.0); White Blood Count 6.7 K/mm3 (4.0-10.5)
[2016-11-14] MEDS ORDERED: FUROSEMIDE 10 MG/ML VIAL IV ONE ×2 (15:37→20:32)
--- OUTSIDE RECORDS SUMMARY | 2016-11-14 15:44 | XMS REPORT | Continuity of Care Document ---
:1925 Author Organization [facility] ([facility]) Address [address] [place] [address] Phone [phone] Care Team Providers Name Role Phone Provider, No-Primary Care Primary Care Provider Unavailable Source Comments This disclosure is being made pursuant to the Care Everywhere program, applicable federal and state laws, and may not contain all informaitonavailable regarding this patient.[facility] ([facility]) Active Allergies and Adverse Reactions No [...] Taken Blood Pressure 135/71 05/02/2010 4:00 PM PASSENGER CAR CLEANING SUPERVISOR Pulse 85 05/02/2010 4:00 PM PASSENGER CAR CLEANING SUPERVISOR Temperature 36.7 C (98.1 F) 05/02/2010 4:00 PM PASSENGER CAR CLEANING SUPERVISOR Respiratory Rate 18 05/02/2010 4:00 PM PASSENGER CAR CLEANING SUPERVISOR Height 1.651 m (5' 5") 04/28/2010 5:35 PM PASSENGER CAR CLEANING SUPERVISOR Weight 92.1 kg (203 lb 0.7 oz) 04/28/2010 5:35 PM PASSENGER CAR CLEANING SUPERVISOR Body Mass Index 33.79 04/28/2010 5:35 PM PASSENGER CAR CLEANING SUPERVISOR Oxygen Saturation 95% 05/02/2010 4:00 PM PASSENGER CAR CLEANING SUPERVISOR Plan of Care Health Maintenance Due Date [...]
[2016-11-14 15:52] LABS: Troponin I 0.074 ng/ml (0.00-0.10)
[2016-11-14] MEDS ORDERED: FUROSEMIDE 10 MG/ML VIAL ONE ×2 (15:52→21:28)
[2016-11-14 15:54] LABS: Albumin * 2.8 gm/dl (3.4-5.0); Anion Gap 12.9 mmol/L (6.8-13.8); BUN/Creatinine Ratio 27.5 (9.0-21.6); Bilirubin, Total 1.2 mg/dL (0.0-1.1); Ca. Corrected For Albumin 9.5 mg/dL (8.4-10.2); Calcium * 8.9 mg/dL (7.9-10.9); Carbon Dioxide 27.7 mmol/L (24-32.6); Potassium 4.6 mmol/L (3.4-4.6); Total Protein 7.5 gm/dL (6.2-8.2)
--- NOTE | 2016-11-14 17:18 | ERNOTE ---
Medical Problem HPI - Narrative Date of Service: 11/14/16 - General Chief Complaint: General Assessment Time Seen by Provider: 11/14/16 15:12 Source: patient, family Exam Limitations: no limitations - Immun/Allergies/Home Medications Immunizations: IMMUNIZATION HX Immunizations Up to Date Yes History of Influenza Vaccine Yes Hx Pneumococcal Vaccination Yes Allergies/Adverse Reactions: Allergies No Known Allergies Allergy (Verified 11/14/16 15:03) Home Medications: HOME MEDICATIONS Albuterol Sulfate [Albuterol Sulfate 2.5 MG/3 ML] 2.5 mg IH Q6H PRN 08/24/16 [ Last Taken Unknown] Citalopram Hydrobromide [Citalopram HBr] 10 mg PO DAILY 08/24/16 [Last Taken ] Enalapril Maleate [Vasotec] 5 mg PO DAILY 08/24/16 [Last Taken 08/23/16] Furosemide [Lasix] 40 mg PO BID 08/24/16 [Last Taken 08/23/16] Metoprolol Succinate [Toprol Xl] 50 mg PO DAILY 08/24/16 [Last Taken 08/23/16] Nitroglycerin [Nitrostat] 0.4 mg SL Q5MIN PRN 08/24/16 [Last Taken Unknown] Nystatin [Mycostatin Powder] 1 appl TP BID 08/24/16 [Last Taken 08/23/16] Omeprazole [Prilosec] 20 mg PO DAILY 08/24/16 [Last Taken 08/23/16] Simvastatin [Zocor] 40 mg PO HS 08/24/16 [Last Taken 08/22/16] Warfarin Sodium [Jantoven] 3 mg PO DAILY 08/24/16 [Last Taken 08/23/16] traMADol HCL [Ultram] 50 mg PO DAILY PRN 08/24/16 [Last Taken Unknown] Potassium Chloride [K-Dur] 40 meq PO DAILY tablet.sa 08/26/16 [Last Taken Unknown] glyBURIDE [Micronase] 5 mg PO BIDAC tablet 08/26/16 [Last Taken Unknown] Hydrochlorothiazide [Hydrodiuril] 25 mg PO DAILY #4 tablet 10/17/16 [Last Taken Unknown] - History of Present History Narrative: Patient presents to the ED after being told to come to the ED by Dr Hoff. Patient was told based on labs today she had CHF and needeed to go to the ED. patient relates increased swelling and SOB. Increased exertional SOB. Increased generalized weakness. She has had a 10 LB weight gain in the last 6 dyas. Had labs done today by her PCP and was directed to the ED. No CP or abdominal pain. Timing: constant, getting worse Severity: moderate Modifying Factors - (Improves): Present: rest Modifying Factors - (Worsens): Present: other - exertion Review of Systems - Review of Systems Constitutional: Absent: fever Respiratory: Present: shortness of breath Cardiology: Absent: chest pain Gastrointestinal/Abdominal: Absent: abdominal pain Genitourinary: Absent: decreased urinary output All Other Systems: All systems neg except as marked - Patient's Past Medical History Patient History - Medical: Anemia, Diabetes Type 2, Obesity, Other Patient History - Cardiac/Respiratory: Atrial Fibrillation, CHF, Hypertension, Hyperlipidemia Patient History - Cancer: Colon Patient History - Surgical Procedures: Cancer Surgery, Cataracts, Cholecystectomy, Colon Resection, Other Patient History - Other: None - Family History Brother Family History - Medical: Diabetes Type 2, Seizures Family History - Cardiac/Respiratory: No pertinent hx Father Family History - Medical: , Other Family History - Cardiac/Respiratory: History Unknown Mother Family History - Medical: , Diabetes Type 2 Family History - Cardiac/Respiratory: Hypertension - Social History Living Situations: home Abuse History: No History of abuse Psych History: No pertinent hx Alcohol Use: none Drug Use: none - Immunizations Immunizations Up to Date: Yes Hx Pneumococcal Vaccination: Yes History of Influenza Vaccine: Yes Physical Exam - Physical Exam General Appearance: Present: alert, no apparent distress Eye Exam: Normal inspection: bilateral, PERRL: bilateral Ears, Nose, Throat: Present: normal ENT inspection Neck: Present: normal inspection Respiratory: Present: no respiratory distress, other - few rales in the bases. Cardiovascular/Chest: Present: regular rate, rhythm, normal peripheral pulses Gastrointestinal/Abdominal: Present: normal bowel sounds, nontender, soft Back Exam: Absent: CVA tenderness (R), CVA tenderness (L) Extremity Exam: Present: pedal edema Neurological Exam: Present: alert, no motor/sensory deficits Skin Exam: Absent: skin rash ED Progress - Results and Orders Patient's Lab Results:: I have reviewed the patient's lab results. - Vital Signs Patient's Vital Signs:: I have reviewed the patient's vital signs. Vital Signs: Vital Signs 11/14/16 11/14/16 11/14/16 14:58 15:31 16:08 Temperature 36.4 C L 36.4 C L 36.6 C Pulse Rate 75 70 70 Respiratory 16 23 H 25 H Rate Blood Pressure 113/66 118/70 127/66 O2 Sat by Pulse 91 94 Oximetry 11/14/16 11/14/16 11/14/16 16:32 16:35 16:56 Temperature Pulse Rate 85 80 65 Respiratory 15 25 H Rate Blood Pressure 103/54 116/66 O2 Sat by Pulse 99 Oximetry 11/14/16 16:58 Temperature 36.5 C Pulse Rate 66 Respiratory 27 H Rate Blood Pressure 116/66 O2 Sat by Pulse 91 Oximetry - EKG EKG: NSR EKG read: Interp. by me EKG Comments: NSR rate 73. Non-specific ST/T wave changes, minimally changed from prior. No STEMI. - X-Ray X-Ray #1 X-Ray: chest Interpretation: Interp. by me X-ray Comments: Mild pulmonary vascular congestion. Official radiology report not available at this point. - Progress/Reassessment Chief Complaint: General Assessment Progress Note-Subjective: 11/14/16 17:16 IV Lasix given. D/W Dr Ervin who will admit. Family wishes for her to be admitted as she lives alone and is unable to get around in her home at [facility] d/t her SOB. 11/14/16 17:17 Departure - Departure Clinical Impression: CHF exacerbation Disposition: [facility] Condition: Stable Referrals: Octavia Hoff MD [Primary Care Provider] -
--- OUTSIDE RECORDS SUMMARY | 2016-11-14 17:36 | XMS REPORT | Continuity of Care Document ---
:1925 Author Organization [facility] ([facility]) Address [address] [place] [address] Phone [phone] Care Team Providers Name Role Phone Provider, No-Primary Care Primary Care Provider Unavailable Source Comments This disclosure is being made pursuant to the Care Everywhere program, applicable federal and state laws, and may not contain all informaitonavailable regarding this patient.[facility] ([facility]) Active Allergies and Adverse Reactions No [...] Taken Blood Pressure 135/71 05/02/2010 4:00 PM [employer] DAT[employer]ELOPER Pulse 85 05/02/2010 4:00 PM [employer]ELOPER Temperature 36.7 C (98.1 F) 05/02/2010 4:00 PM [employer] DEVELOPER Respiratory Rate 18 05/02/2010 4:00 PM [employer] DEVELOPER Height 1.651 m (5' 5") 04/28/2010 5:35 PM [employer] DEVELOPER Weight 92.1 kg (203 lb 0.7 oz) 04/28/2010 5:35 PM [employer] DAT[employer] DEVELOPER Body Mass Index 33.79 04/28/2010 5:35 PM [employer] DAT[employer] DEVELOPER Oxygen Saturation 95% 05/02/2010 4:00 PM [employer] DAT[employer] DEVELOPER Plan of Care Health Maintenance Due Date [...]
[2016-11-14] MEDS ORDERED: METOLAZONE 5 MG TABLET PO ONE (20:31)
[2016-11-14] MEDS ORDERED: ACETAMINOPHEN 500 MG TABLET PO PRN (20:32)
[2016-11-14] MEDS ORDERED: traMADol HCL 50 MG TABLET PO PRN (20:32)
[2016-11-14] MEDS ORDERED: ALBUTEROL SULFATE 2.5 MG/3 ML VIAL.NEB IH PRN (20:32)
[2016-11-14] MEDS ORDERED: NITROGLYCERIN 0.4 MG/TAB BTL SL PRN (20:32)
[2016-11-14] MEDS ORDERED: POTASSIUM CHLORIDE 20 MEQ TABLET.SA PO ONE (20:34)
--- NOTE | 2016-11-14 20:43 | HP ---
Chief Complaint - Chief Complaint Date of Service: 11/14/16 Time of Service: 20:39 Chief Complaint: "SOB, Weight gain". Source of HPI- Pt; reliable, ER provider report. History of Present Illness: Ms. New is a 89-yr-old [place] pt of Dr. Octavia Hoff with a PMH of: Anemia, A-fib , CHF, GERD, HTN, HLD, IBS & Restless Legs Syndrome. Pt states that for the last 3 days, she has has worsening SOB with exertion and increasing weight gain of about 7 lbs. She reports that she takes Lasix 80 mg PO twice daily and has not seen any improvement. She says that walking to the bathroom and back to the living room causes her to be extremely dyspneic.Pt denies coughing, fevers and chills. She also denies n/v, abd pain & diarrhea. She was addmitted at [facility] in 08/23-08/26 for SOB & Increasing leg swelling and was diuresed with IV lasix. During evaluation at the ED today, the CXR showed diffuse interstitial lung marking which can consistent with pulmonary Edema. She also had increased swelling on her BLE with a 4 + tibial/pedal edema. She received IV Lasix at the ED and did not diurese enough. She will be admitted under observation status due to Acute on Chronic CHF exacerbation which will respond well to continued IV diuretics. - Patient's Past Medical History Patient History - Medical: Anemia, Diabetes Type 2, Obesity Patient History - Cardiac/Respiratory: Atrial Fibrillation, CHF, Hypertension, Hyperlipidemia Patient History - Cancer: Colon Patient History - Surgical Procedures: Cancer Surgery, Cataracts, Cholecystectomy, Colon Resection, Other Patient History - Other: None - Family History Brother Family History - Medical: Diabetes Type 2, Seizures Family History - Cardiac/Respiratory: No pertinent hx Father Family History - Medical: , Other Family History - Cardiac/Respiratory: History Unknown Mother Family History - Medical: , Diabetes Type 2 Family History - Cardiac/Respiratory: Hypertension - Social History Living Situations: alone Abuse History: No History of abuse Psych History: No pertinent hx Smoking Status: Former smoker Have you smoked in the past 12 months: No Alcohol Use: none Drug Use: none - Immunizations Immunizations Up to Date: Yes Hx Pneumococcal Vaccination: Yes History of Influenza Vaccine: Yes Review Of Systems (GEN) - Review of Systems Generalized/Overall Review: Present: Weakness, Weight gain - of 7lbs in 3 days. Absent: Chills, Fever, Malaise Respiratory: Present: Shortness of Breath. Absent: Cough, Orthopnea, Stridor Cardiac: Present: Edema. Absent: Chest Pain, Palpitations, Syncope Abdominal: Absent: Nausea, Vomiting, Hematemesis, Abdominal Pain, Diarrhea Genitourinary: Present: Frequency. Absent: Burning, Itching, Urgency, Hesitancy , Dribbling Musculoskeletal: Absent: Joint Pain, Back Pain, Joint Swelling, Muscle Pain Neurological: Present: Weakness. Absent: Headache, Anxiety, Depressed Skin: Absent: Dryness, Lesions, Lumps Endocrine: Present: Intolerance to Cold. Absent: Increased Hunger, Flushing, Increased Thirst Misc: All systems neg except as marked Allergies/Adverse Reactions: Allergies Allergy/AdvReac Type Severity Reaction Status Date / Time No Known Allergies Allergy Verified 11/14/16 15:03 Home Medications: HOME MEDICATIONS Albuterol Sulfate [Albuterol Sulfate 2.5 MG/3 ML] 2.5 mg IH Q6H PRN 08/24/16 [ Last Taken Unknown] Citalopram Hydrobromide [Citalopram HBr] 10 mg PO DAILY 08/24/16 [Last Taken ] Enalapril Maleate [Vasotec] 5 mg PO DAILY 08/24/16 [Last Taken 08/23/16] Furosemide [Lasix] 80 mg PO BID 08/24/16 [Last Taken 08/23/16] Metoprolol Succinate [Toprol Xl] 50 mg PO DAILY 08/24/16 [Last Taken 08/23/16] Nitroglycerin [Nitrostat] 0.4 mg SL Q5MIN PRN 08/24/16 [Last Taken Unknown] Nystatin [Mycostatin Powder] 1 appl TP BID 08/24/16 [Last Taken 08/23/16] Omeprazole [Prilosec] 20 mg PO DAILY 08/24/16 [Last Taken 08/23/16] Simvastatin [Zocor] 40 mg PO HS 08/24/16 [Last Taken 08/22/16] Warfarin Sodium [Jantoven] 2 mg PO DAILY 08/24/16 [Last Taken 08/23/16] traMADol HCL [Ultram] 50 mg PO DAILY PRN 08/24/16 [Last Taken Unknown] glyBURIDE [Micronase] 5 mg PO BIDAC tablet 08/26/16 [Last Taken Unknown] Acetaminophen 1,000 mg PO Q6H PRN 11/14/16 [Last Taken Unknown] Calcitriol 0.25 mcg PO DAILY 11/14/16 [Last Taken Unknown] Cholecalciferol (Vitamin D3) [Vitamin D3] 1,000 unit PO BID 11/14/16 [Last Taken Unknown] Exam - Exam Vital Signs: Vital Signs - Last Taken Temp 36.4 C L 11/14/16 18:16 Pulse 68 11/14/16 18:16 Resp 18 11/14/16 18:16 BP 107/67 11/14/16 18:16 Pulse Ox 96 11/14/16 18:16 Constitutional: Present: Alert, Oriented x3, Cooperative, No distress, Elderly ENT Exam: Present: normal ENT inspection, hearing grossly normal, dry mucous membranes Eye Exam: left eye: normal inspection, PERRL Neck: Present: full range of motion, supple, normal inspection Back Exam: Present: normal inspection, no CVA tenderness Breasts: Present: Exam deferred Respiratory: Present: no accessory muscle use - Bilateral Bases, rales Cardiovascular/Chest: Present: regular rate, rhythm, no chest tenderness Abdomen: Present: Normal bowel sounds, soft, nontender /Rectal: Present: Exam deferred Extremity: Present: normal inspection, lower extremity edema - 4 + pedal/tibial edema, slow capillary refill Skin Exam: Present: no cyanosis, other - Erythema on skin folds under the breast and abdominal folds. Neurologic: Present: no motor/sensory deficits, alert, normal mood/affect, oriented x 3 Appearance: Present: appropriate appearance, appropriate insight Eye contact: Present: cooperative, good eye contact, normal speech Thoughts: Present: normal thought pattern, no apparent hallucination Diagnostic Studies: Laboratory Results WBC 6.7 K/mm3 (4.0-10.5) 11/14/16 15:23 RBC 4.26 M/mm3 (4.2-5.4) 11/14/16 15:23 Hgb 11.5 gm/dL (12.5-16.0) L 11/14/16 15:23 Hct 36.2 % (37.0-47.0) L 11/14/16 15:23 MCV 85.0 fl (78-100) 11/14/16 15: MCH 27.0 pg (27-31) 11/14/16 15: MCHC 31.8 g/dl (32-36) L 11/14/16 15: RDW 17.2 % (11.5-14.0) H 11/14/16 15:23 Plt Count 191 K/mm3 (150-450) 11/14/16 15: MPV 10.8 fl (6.0-9.5) H 11/14/16 15: Immature Gran % (Auto) 0.10 % (0.001-0.429) 11/14/16: Immature Gran # (Auto) 0.01 K/mm3 (0.000-0.0310) 11/14/16 15: Neutrophils % 62.0 % (42-75.0) 11/14/16 15: Lymphocytes % 28.7 % (20-51) 11/14/16: Monocytes % 6.4 % (0.0-9) 11/14/16: Eosinophils % 2.2 % (0.0-3.0) 11/14/16: Basophils % 0.6 % (0.0-1.0) 11/14/16: Nucleated RBC % 0.0 k/mm3 (0-1) 11/14/16 15: Neutrophils # 4.2 K/mm3 (1.3-6.0) 11/14/16 15: Lymphocytes # 1.9 k/mm3 (1.5-3.5) 11/14/16: Monocytes # 0.4 k/mm3 (0.0-1.0) 11/14/16: Eosinophils # 0.2 k/mm3 (0.0-0.7) 11/14/16: Absolute Basophils 0.0 k/mm3 (0.0-0.1) 11/14/16 15: Sodium 136 mmol/L (132-142) 11/14/16 15: Plasma Sodium 138 mmol/L (130-142) 11/14/16 15: Potassium 4.6 mmol/L (3.4-4.6) 11/14/16: Chloride 100 mmol/L (97-106) 11/14/16 15:23 Carbon Dioxide 27.7 mmol/L (24-32.6) 11/14/16 15:23 Anion Gap 12.9 mmol/L (6.8-13.8) 11/14/16 15:23 BUN 42 mg/dL (3-23) H 11/14/16 15:23 Creatinine 1.53 mg/dL (0.4-1.4) H 11/14/16 15:23 Est GFR (Non-Af Amer) 34 mL/min (60-130) L 11/14/16 15:23 BUN/Creatinine Ratio 27.5 (9.0-21.6) H 11/14/16 15:23 Random Glucose 219 mg/dL (70-110) H D 11/14/16 15:23 Calcium 8.9 mg/dL (7.9-10.9) 11/14/16 15:23 Calcium Adj for Albumin 9.5 mg/dL (8.4-10.2) 11/14/16 15:23 Total Bilirubin 1.2 mg/dL (0.0-1.1) H 11/14/16 15:23 AST 21 U/L (0-48) 11/14/16 15:23 ALT 16 U/L (19-67) L 11/14/16 15:23 Alkaline Phosphatase 104 U/L (50-170) 11/14/16 15:23 Troponin I 0.074 ng/ml (0.00-0.10) 11/14/16 15:23 B-Natriuretic Peptide 04965 pg/mL (5-550) H 11/14/16 15:23 Total Protein 7.5 gm/dL (6.2-8.2) 11/14/16 15:23 Albumin 2.8 gm/dl (3.4-5.0) L 11/14/16 15:23 Assessment/Plan - Assessment/Plan (1) Acute on chronic diastolic (congestive) heart failure Assessment: CHF exacerbation noted with fluid overload signs: Dyspnea, Peripheral Edema, elevated BNP of 14,202 and pulmonary edema findings on CXR. Will admit under observation and continue to diurese with IV Lasix to relieve the symptoms. Hold PO Lasix doses for now. She was given 40 IV lasix at the ED and she did not respond well. Will give additional 120mg IVP and Metolazone 5 mg PO once. Will adjust the dose daily based on urine output, changes in signs of congestion & BP. Monitor electrolytes, & kidney function. Keep up with CHF teaching, Accurate I & O's, Daily Wt & Low salt diet. Problem: Acute (2) Generalized weakness Assessment: Will involve PT/OT for strengthening. Encourage Ambulation. Problem: Acute (3) Diabetes mellitus Assessment: Stable- Accu check ACHS, Continue glyburide. Problem: Chronic Qualifiers: Diabetes mellitus type: type 2 (4) A-fib Assessment: Stable- On coumadin and metoprolol, Place on Remote telemetry . Problem: Chronic (5) HLD (hyperlipidemia) Assessment: Stable- On Zocor. Problem: Chronic Qualifiers: Hyperlipidemia type: mixed hyperlipidemia Qualified Code(s): E78.2 - Mixed hyperlipidemia (6) HTN (hypertension) Problem: Chronic Qualifiers: Hypertension type: essential hypertension Qualified Code(s): I10 - Essential (primary) hypertension (7) Irritable bowel syndrome (IBS) Problem: Chronic (8) GERD (gastroesophageal reflux disease) Assessment: Stable - on Protonix. Problem: Chronic (9) Chronic renal failure, stage 4 (severe) Problem: Chronic
[2016-11-14] MEDS ORDERED: NYSTATIN 15 APPL BTL TP SCH (21:00)
[2016-11-14] MEDS: CHOLECALCIFEROL 1,000 UNIT CAPSULE PO SCH (21:30)
[2016-11-14] MEDS: SIMVASTATIN 40 MG TABLET PO SCH (21:30)
[2016-11-15 05:31] LABS: Anion Gap 11.5 mmol/L (6.8-13.8); Calcium * 9.2 mg/dL (7.9-10.9); Carbon Dioxide 29.7 mmol/L (24-32.6); Estimated Creat Clear 19.6; Potassium 4.2 mmol/L (3.4-4.6)
[2016-11-15] MEDS: PANTOPRAZOLE SODIUM 20 MG TABLET.DR PO SCH (07:10)
[2016-11-15] MEDS: glyBURIDE 5 MG TABLET PO SCH ×2 (07:10→17:20)
[2016-11-15 07:22] LABS: Hematocrit 35.8 % (37.0-47.0); Hemoglobin 11.3 gm/dL (12.5-16.0); Mean Cell Volume 85.2 fl (78-100); Mean Corpuscular Hemoglobin 26.9 pg (27-31); Mean Corpuscular Hgb Conc 31.6 g/dl (32-36); Neutrophil # 3.7 K/mm3 (1.3-6.0); Neutrophil % 61.7 % (42-75.0); Platelet Count 151 K/mm3 (150-450); Red Cell Distribution Width 17.5 % (11.5-14.0); White Blood Count 6.1 K/mm3 (4.0-10.5)
--- NOTE | 2016-11-15 08:39 | PN ---
Radha Note - Interim Narrative: 11/15/16 08:38 She says she is feeling better. Await PT/OT ad ST valuation. Possible discharge today.
[2016-11-15] MEDS ORDERED: FUROSEMIDE 10 MG/ML VIAL IV SCH (09:00)
[2016-11-15] MEDS: CALCITRIOL 0.25 MCG CAPSULE PO SCH (09:05)
[2016-11-15] MEDS: NYSTATIN 15 APPL BTL TP SCH ×4 (09:05→20:50)
[2016-11-15] MEDS: CITALOPRAM HYDROBROMIDE 10 MG TABLET PO SCH (09:05)
[2016-11-15] MEDS: CHOLECALCIFEROL 1,000 UNIT CAPSULE PO SCH ×2 (09:05→20:48)
[2016-11-15] MEDS: FUROSEMIDE 10 MG/ML VIAL IV SCH ×2 (09:08→17:19)
[2016-11-15] MEDS: METOPROLOL SUCCINATE 50 MG TABLET.SA PO SCH (09:09)
--- NOTE | 2016-11-15 15:14 | PN ---
Subjective - Date and Time Seen Date: 11/15/16 Time: 15:14 Subjective Narrative: Feels better today. Objective - Review of Systems Generalized/Overall Review: Reports: Weakness, Weight gain EENTM: Reports: No Symptoms Reported Respiratory: Reports: Shortness of Breath, Orthopnea Cardiac: Reports: Edema. Denies: Chest Pain, Palpitations Abdominal: Denies: Nausea, Vomiting Genitourinary Symptoms: Denies: Urgency, Frequency Musculoskeletal Complaints: Reports: Joint Pain - Vitals Vitals: Last Vital Signs Temp 36.4 C L 11/15/16 14:54 Pulse 73 11/15/16 14:54 Resp 16 11/15/16 14:54 BP 91/54 11/15/16 14:54 Pulse Ox 94 11/15/16 14:54 - Exam Constitutional: Present: Alert, Cooperative, Elderly - AAO x 2 ENT Exam: Present: hearing grossly normal Neck: Present: supple Breasts: Present: Exam deferred Respiratory: Present: decreased breath sounds, rales, No wheezing Abdomen: Present: Normal bowel sounds, soft, nontender, nondistended Extremity: Present: no calf tenderness, lower extremity edema Cauti Physician Documentation - Urinary Catheter Management Uretheral (Torres) Date of Insertion: 11/14/16 Time of Insertion: 21:46 Assessment/Plan - Problems/Diagnosis (1) Acute exacerbation of CHF (congestive heart failure) Problem: Acute Qualifiers: Congestive heart failure type: unspecified congestive heart failure type Qualified Code(s): I50.9 - Heart failure, unspecified (2) A-fib Problem: Chronic Qualifiers: Atrial fibrillation type: chronic Qualified Code(s): I48.2 - Chronic atrial fibrillation (3) Dyspnea Problem: Acute Qualifiers: Dyspnea type: shortness of breath Qualified Code(s): R06.02 - Shortness of breath Narrative: improved. likely due to CHF exacerbation. CXR shows opacity- query aspiration. will add procalcitnonin and refer her to ST for evaluation. (4) Generalized weakness Problem: Acute Narrative: awaiting PT/OT evaluation (5) A-fib Problem: Chronic Qualifiers: Atrial fibrillation type: chronic Qualified Code(s): I48.2 - Chronic atrial fibrillation (6) Chronic renal failure, stage 4 (severe) Problem: Chronic (7) Diabetes mellitus Problem: Chronic Qualifiers: Diabetes mellitus type: type 2 (8) GERD (gastroesophageal reflux disease) Problem: Chronic (9) HLD (hyperlipidemia) Problem: Chronic Qualifiers: Hyperlipidemia type: mixed hyperlipidemia Qualified Code(s): E78.2 - Mixed hyperlipidemia (10) HTN (hypertension) Problem: Chronic Qualifiers: Hypertension type: essential hypertension Qualified Code(s): I10 - Essential (primary) hypertension
[2016-11-15 16:12] LABS: INR 2.63 INR (0.90-1.10); Prothrombin Time (Patient) 27.4 Seconds (9.4-11.4)
[2016-11-15] MEDS: WARFARIN SODIUM 2 MG TABLET PO SCH (17:20)
[2016-11-15] MEDS: SIMVASTATIN 40 MG TABLET PO SCH (20:49)
[2016-11-16 05:27] LABS: Hematocrit 34.7 % (37.0-47.0); Hemoglobin 10.6 gm/dL (12.5-16.0); Mean Cell Volume 85.3 fl (78-100); Mean Corpuscular Hgb Conc 30.5 g/dl (32-36); Mean Platelet Volume 10.5 fl (6.0-9.5); Neutrophil % 63.2 % (42-75.0); Platelet Count 159 K/mm3 (150-450); Red Blood Count 4.07 M/mm3 (4.2-5.4); Red Cell Distribution Width 17.2 % (11.5-14.0); White Blood Count 6.3 K/mm3 (4.0-10.5)
[2016-11-16 05:34] LABS: Prothrombin Time (Patient) 27.5 Seconds (9.4-11.4)
[2016-11-16 05:37] LABS: INR 2.64 INR (0.90-1.10)
[2016-11-16 05:47] LABS: Anion Gap 7.9 mmol/L (6.8-13.8); BUN/Creatinine Ratio 27.7 (9.0-21.6); Calcium * 9.3 mg/dL (7.9-10.9); Carbon Dioxide 32.5 mmol/L (24-32.6); Estimated Creat Clear 20.4; Potassium 4.4 mmol/L (3.4-4.6)
[2016-11-16] MEDS: PANTOPRAZOLE SODIUM 20 MG TABLET.DR PO SCH (06:48)
[2016-11-16] MEDS: glyBURIDE 5 MG TABLET PO SCH ×2 (06:48→17:04)
--- NOTE | 2016-11-16 09:31 | PN ---
Subjective - Date and Time Seen Date: 11/16/16 Time: 09:26 Subjective Narrative: Patient feels better. She says the swelling is down so much so that she can bend her joints now. Objective - Review of Systems Generalized/Overall Review: Reports: Weakness. Denies: Chills, Fever EENTM: Reports: No Symptoms Reported Respiratory: Reports: Shortness of Breath, Orthopnea. Denies: Cough Cardiac: Reports: Edema. Denies: Chest Pain, Palpitations Abdominal: Denies: Nausea, Vomiting Genitourinary Symptoms: Denies: Urgency, Frequency Musculoskeletal Complaints: Reports: Joint Pain - Vitals Vitals: Last Vital Signs Temp 35.9 C L 11/16/16 06:36 Pulse 75 11/16/16 06:36 Resp 17 11/16/16 06:36 BP 98/51 11/16/16 06:36 Pulse Ox 94 11/16/16 06:36 - Abnormal Lab Findings Abnormal Lab Findings: Abnormal Lab Results 11/16/16 11/16/16 11/16/16 Range/Units 05:18 05:18 05:18 RBC 4.07 L (4.2-5.4) M/mm3 Hgb 10.6 L (12.5-16.0) gm/dL Hct 34.7 L (37.0-47.0) % MCH 26.0 L (27-31) pg MCHC 30.5 L (32-36) g/dl RDW 17.2 H (11.5-14.0) % MPV 10.5 H (6.0-9.5) fl PT 27.5 H (9.4-11.4) Seconds INR (Anticoag Therapy) 2.64 H (0.90-1.10) INR BUN 41 H (3-23) mg/dL Creatinine 1.48 H (0.4-1.4) mg/dL Est GFR (Non-Af Amer) 35 L (60-130) mL/min BUN/Creatinine Ratio 27.7 H (9.0-21.6) Random Glucose 180 H (70-110) mg/dL B-Natriuretic Peptide 30146 H (5-550) pg/mL - Exam Constitutional: Present: Alert, Oriented x3, Cooperative, Elderly ENT Exam: Present: hearing grossly normal Neck: Present: supple Breasts: Present: Exam deferred Respiratory: Present: decreased breath sounds, rales, No wheezing Cardiovascular/Chest: Present: no murmur, JVD, irregularly irregular Abdomen: Present: Normal bowel sounds, soft, nontender, nondistended Extremity: Present: no calf tenderness, lower extremity edema, other - positive multiple superficial ulcers , legs Cauti Physician Documentation - Urinary Catheter Management Uretheral (Torres) Date of Insertion: 11/14/16 Time of Insertion: 21:46 Assessment/Plan - Problems/Diagnosis (1) Acute exacerbation of CHF (congestive heart failure) Problem: Acute Qualifiers: Congestive heart failure type: unspecified congestive heart failure type Qualified Code(s): I50.9 - Heart failure, unspecified Narrative: improving . continue with IV diuresis. (2) A-fib Problem: Chronic Qualifiers: Atrial fibrillation type: chronic Qualified Code(s): I48.2 - Chronic atrial fibrillation (3) Dyspnea Problem: Acute Qualifiers: Dyspnea type: shortness of breath Qualified Code(s): R06.02 - Shortness of breath (4) Generalized weakness Problem: Acute (5) A-fib Problem: Chronic Qualifiers: Atrial fibrillation type: chronic Qualified Code(s): I48.2 - Chronic atrial fibrillation (6) Chronic renal failure, stage 4 (severe) Problem: Chronic (7) Diabetes mellitus Problem: Chronic Qualifiers: Diabetes mellitus type: type 2 (8) GERD (gastroesophageal reflux disease) Problem: Chronic (9) HLD (hyperlipidemia) Problem: Chronic Qualifiers: Hyperlipidemia type: mixed hyperlipidemia Qualified Code(s): E78.2 - Mixed hyperlipidemia (10) HTN (hypertension) Problem: Chronic Qualifiers: Hypertension type: essential hypertension Qualified Code(s): I10 - Essential (primary) hypertension
[2016-11-16] MEDS: METOPROLOL SUCCINATE 50 MG TABLET.SA PO SCH (10:06)
[2016-11-16] MEDS: CITALOPRAM HYDROBROMIDE 10 MG TABLET PO SCH (10:09)
[2016-11-16] MEDS: CHOLECALCIFEROL 1,000 UNIT CAPSULE PO SCH ×2 (10:09→20:16)
[2016-11-16] MEDS: NYSTATIN 15 APPL BTL TP SCH ×4 (10:10→20:17)
[2016-11-16] MEDS: FUROSEMIDE 10 MG/ML VIAL IV SCH ×2 (10:10→17:54)
[2016-11-16] MEDS: CALCITRIOL 0.25 MCG CAPSULE PO SCH (10:10)
[2016-11-16] MEDS: WARFARIN SODIUM 2 MG TABLET PO SCH (17:04)
[2016-11-16] MEDS: SIMVASTATIN 40 MG TABLET PO SCH (20:16)
[2016-11-17 06:05] LABS: Prothrombin Time (Patient) 24.9 Seconds (9.4-11.4)
[2016-11-17 06:10] LABS: INR 2.39 INR (0.90-1.10)
[2016-11-17] MEDS: glyBURIDE 5 MG TABLET PO SCH ×2 (06:47→17:03)
[2016-11-17] MEDS: PANTOPRAZOLE SODIUM 20 MG TABLET.DR PO SCH (06:47)
[2016-11-17 07:27] LABS: BUN/Creatinine Ratio 25.5 (9.0-21.6); Calcium * 9.1 mg/dL (7.9-10.9); Estimated Creat Clear 20.2; Potassium 3.8 mmol/L (3.4-4.6)
[2016-11-17 07:48] LABS: Carbon Dioxide 35.8 mmol/L (24-32.6)
--- NOTE | 2016-11-17 08:26 | PN ---
Subjective - Date and Time Seen Date: 11/17/16 Time: 08:21 Subjective Narrative: Patient doimg better. PT recommends more treatment to make her stronger. NH not able to take her until Sunday. Objective - Review of Systems Generalized/Overall Review: Reports: Weakness. Denies: Chills, Fever EENTM: Reports: Ear Discharge Respiratory: Reports: Shortness of Breath, Orthopnea. Denies: Cough Cardiac: Reports: Edema. Denies: Chest Pain, Palpitations Abdominal: Denies: Nausea, Vomiting Genitourinary Symptoms: Denies: Urgency, Frequency Musculoskeletal Complaints: Reports: Joint Pain - Vitals Vitals: Last Vital Signs Temp 36.7 C 11/17/16 02:00 Pulse 91 11/17/16 02:00 Resp 18 11/17/16 02:00 BP 111/69 11/17/16 02:00 Pulse Ox 91 11/17/16 02:00 - Abnormal Lab Findings Abnormal Lab Findings: Abnormal Lab Results 11/17/16 11/17/16 Range/Units 05:46 05:46 PT 24.9 H (9.4-11.4) Seconds INR (Anticoag Therapy) 2.39 H (0.90-1.10) INR Chloride 96 L (97-106) mmol/L Carbon Dioxide 35.8 H (24-32.6) mmol/L BUN 38 H (3-23) mg/dL Creatinine 1.49 H (0.4-1.4) mg/dL Est GFR (Non-Af Amer) 35 L (60-130) mL/min BUN/Creatinine Ratio 25.5 H (9.0-21.6) Random Glucose 142 H (70-110) mg/dL B-Natriuretic Peptide 61108 H (5-550) pg/mL - Exam Constitutional: Present: Alert, Oriented x3, Cooperative, Elderly ENT Exam: Present: hearing grossly normal Neck: Present: supple Breasts: Present: Exam deferred Respiratory: Present: decreased breath sounds, rales, No wheezing Cardiovascular/Chest: Present: no JVD, no murmur, irregularly irregular Abdomen: Present: Normal bowel sounds, soft, nontender, nondistended Extremity: Present: no calf tenderness, lower extremity edema - siginificantly imporved, showing some wrinklingnow, positive superficial ulcers Cauti Physician Documentation - Urinary Catheter Management Uretheral (Patrick) Date of Insertion: 11/14/16 Time of Insertion: 21:46 Assessment/Plan - Problems/Diagnosis (1) Generalized weakness Problem: Acute Narrative: continue with PT. Possible d/c to [place] for more PT. (2) Acute exacerbation of CHF (congestive heart failure) Problem: Acute Qualifiers: Congestive heart failure type: unspecified congestive heart failure type Qualified Code(s): I50.9 - Heart failure, unspecified Narrative: Lost 6 + kilograms. will change IV lasix to PO.d/c patrick. (3) A-fib Problem: Chronic Qualifiers: Atrial fibrillation type: chronic Qualified Code(s): I48.2 - Chronic atrial fibrillation Narrative: rate controlled. (4) Dyspnea Problem: Acute Qualifiers: Dyspnea type: shortness of breath Qualified Code(s): R06.02 - Shortness of breath (5) A-fib Problem: Chronic Qualifiers: Atrial fibrillation type: chronic Qualified Code(s): I48.2 - Chronic atrial fibrillation (6) Chronic renal failure, stage 4 (severe) Problem: Chronic (7) Diabetes mellitus Problem: Chronic Qualifiers: Diabetes mellitus type: type 2 (8) GERD (gastroesophageal reflux disease) Problem: Chronic (9) HLD (hyperlipidemia) Problem: Chronic Qualifiers: Hyperlipidemia type: mixed hyperlipidemia Qualified Code(s): E78.2 - Mixed hyperlipidemia (10) HTN (hypertension) Problem: Chronic Qualifiers: Hypertension type: essential hypertension Qualified Code(s): I10 - Essential (primary) hypertension
[2016-11-17] MEDS: NYSTATIN 15 APPL BTL TP SCH ×4 (09:14→20:28)
[2016-11-17] MEDS: CALCITRIOL 0.25 MCG CAPSULE PO SCH (09:15)
[2016-11-17] MEDS: FUROSEMIDE 80 MG TABLET PO SCH ×2 (09:15→17:02)
[2016-11-17] MEDS: CHOLECALCIFEROL 1,000 UNIT CAPSULE PO SCH ×2 (09:15→20:28)
[2016-11-17] MEDS: METOPROLOL SUCCINATE 50 MG TABLET.SA PO SCH (09:15)
[2016-11-17] MEDS: CITALOPRAM HYDROBROMIDE 10 MG TABLET PO SCH (09:15)
[2016-11-17] MEDS: POTASSIUM CHLORIDE 20 MEQ TABLET.SA PO SCH ×2 (09:16→17:02)
[2016-11-17] MEDS: WARFARIN SODIUM 2 MG TABLET PO SCH (17:01)
[2016-11-17] MEDS: SIMVASTATIN 40 MG TABLET PO SCH (20:28)
[2016-11-18 05:47] LABS: INR 1.83 INR (0.90-1.10)
[2016-11-18] MEDS: glyBURIDE 5 MG TABLET PO SCH ×2 (07:09→16:25)
[2016-11-18] MEDS: PANTOPRAZOLE SODIUM 20 MG TABLET.DR PO SCH (07:10)
--- NOTE | 2016-11-18 08:57 | PN ---
Subjective - Date and Time Seen Date: 11/18/16 Time: 08:53 Subjective Narrative: Patient less SOB. Continues to improve clinically. awaiting NH placement. Objective - Review of Systems Generalized/Overall Review: Reports: Weakness. Denies: Chills, Fever EENTM: Reports: No Symptoms Reported Respiratory: Reports: Shortness of Breath. Denies: Cough, Orthopnea Cardiac: Reports: Edema. Denies: Chest Pain, Palpitations Abdominal: Denies: Nausea, Vomiting Genitourinary Symptoms: Denies: Urgency, Frequency Musculoskeletal Complaints: Reports: Joint Pain - Vitals Vitals: Last Vital Signs Temp 36.6 C 11/18/16 06:22 Pulse 93 11/18/16 06:22 Resp 20 11/18/16 06:22 BP 131/80 11/18/16 06:22 Pulse Ox 93 11/18/16 06:22 - Abnormal Lab Findings Abnormal Lab Findings: Abnormal Lab Results 11/18/16 Range/Units 05:05 PT 19.0 H (9.4-11.4) Seconds INR (Anticoag Therapy) 1.83 H (0.90-1.10) INR - Exam Constitutional: Present: Alert, Oriented x3, Cooperative ENT Exam: Present: hearing grossly normal Neck: Present: supple Breasts: Present: Exam deferred Respiratory: Present: decreased breath sounds, No rales, No wheezing Cardiovascular/Chest: Present: no JVD, no murmur, irregularly irregular Abdomen: Present: Normal bowel sounds, soft, nontender, nondistended Extremity: Present: no calf tenderness, lower extremity edema - improved Cauti Physician Documentation - Urinary Catheter Management Uretheral (Torres) Date of Insertion: 11/14/16 Time of Insertion: 21:46 Date of Removal: 11/17/16 Time of Removal: 11:30 Assessment/Plan - Problems/Diagnosis (1) Generalized weakness Problem: Acute Narrative: continue PT/OT. awaiting NH placement. (2) Acute exacerbation of CHF (congestive heart failure) Problem: Resolved Qualifiers: Congestive heart failure type: unspecified congestive heart failure type Qualified Code(s): I50.9 - Heart failure, unspecified Narrative: back on her oral diouretics (3) A-fib Problem: Chronic Qualifiers: Atrial fibrillation type: chronic Qualified Code(s): I48.2 - Chronic atrial fibrillation Narrative: rate controlled (4) Dyspnea Problem: Acute Qualifiers: Dyspnea type: shortness of breath Qualified Code(s): R06.02 - Shortness of breath Narrative: improved (5) A-fib Problem: Chronic Qualifiers: Atrial fibrillation type: chronic Qualified Code(s): I48.2 - Chronic atrial fibrillation (6) Chronic renal failure, stage 4 (severe) Problem: Chronic (7) Diabetes mellitus Problem: Chronic Qualifiers: Diabetes mellitus type: type 2 (8) GERD (gastroesophageal reflux disease) Problem: Chronic (9) HLD (hyperlipidemia) Problem: Chronic Qualifiers: Hyperlipidemia type: mixed hyperlipidemia Qualified Code(s): E78.2 - Mixed hyperlipidemia (10) HTN (hypertension) Problem: Chronic Qualifiers: Hypertension type: essential hypertension Qualified Code(s): I10 - Essential (primary) hypertension
[2016-11-18] MEDS: FUROSEMIDE 80 MG TABLET PO SCH ×2 (09:25→16:25)
[2016-11-18] MEDS: METOPROLOL SUCCINATE 50 MG TABLET.SA PO SCH (09:25)
[2016-11-18] MEDS: CHOLECALCIFEROL 1,000 UNIT CAPSULE PO SCH ×2 (09:25→20:20)
[2016-11-18] MEDS: CITALOPRAM HYDROBROMIDE 10 MG TABLET PO SCH (09:25)
[2016-11-18] MEDS: POTASSIUM CHLORIDE 20 MEQ TABLET.SA PO SCH ×2 (09:25→16:25)
[2016-11-18] MEDS: NYSTATIN 15 APPL BTL TP SCH ×4 (09:26→20:21)
[2016-11-18] MEDS ORDERED: WARFARIN SODIUM 3 MG TABLET PO ONE (17:00)
[2016-11-18] MEDS: SIMVASTATIN 40 MG TABLET PO SCH (20:20)
[2016-11-19 05:43] LABS: Prothrombin Time (Patient) 17.5 Seconds (9.4-11.4)
[2016-11-19 05:50] LABS: INR 1.68 INR (0.90-1.10)
[2016-11-19] MEDS: PANTOPRAZOLE SODIUM 20 MG TABLET.DR PO SCH (07:41)
[2016-11-19] MEDS: glyBURIDE 5 MG TABLET PO SCH ×2 (07:41→16:28)
--- NOTE | 2016-11-19 07:57 | PN ---
Subjective - Date and Time Seen Date: 11/19/16 Time: 07:50 Subjective Narrative: Patient is feeling stronger. For possible NH placement tomorrow. Objective - Review of Systems Generalized/Overall Review: Reports: Weakness. Denies: Chills, Fever EENTM: Reports: No Symptoms Reported Respiratory: Reports: Shortness of Breath. Denies: Cough, Orthopnea Cardiac: Reports: Edema. Denies: Chest Pain, Palpitations Abdominal: Denies: Nausea, Vomiting Genitourinary Symptoms: Denies: Urgency, Frequency Musculoskeletal Complaints: Reports: Joint Pain - Vitals Vitals: Last Vital Signs Temp 37.3 C 11/19/16 06:58 Pulse 81 11/19/16 06:58 Resp 18 11/19/16 06:58 BP 113/65 11/19/16 06:58 Pulse Ox 96 11/19/16 06:58 - Abnormal Lab Findings Abnormal Lab Findings: Abnormal Lab Results 11/19/16 Range/Units 04:50 PT 17.5 H (9.4-11.4) Seconds INR (Anticoag Therapy) 1.68 H (0.90-1.10) INR - Exam Constitutional: Present: Alert, Oriented x3, Cooperative ENT Exam: Present: hearing grossly normal Neck: Present: supple Breasts: Present: Exam deferred Respiratory: Present: decreased breath sounds, rales, No wheezing Abdomen: Present: Normal bowel sounds, soft, nontender, nondistended Extremity: Present: no calf tenderness, pedal edema - significantly improved. Cauti Physician Documentation - Urinary Catheter Management Uretheral (Torres) Date of Insertion: 11/14/16 Time of Insertion: 21:46 Date of Removal: 11/17/16 Time of Removal: 11:30 Assessment/Plan - Problems/Diagnosis (1) Generalized weakness Problem: Acute (2) Acute exacerbation of CHF (congestive heart failure) Problem: Resolved Qualifiers: Congestive heart failure type: unspecified congestive heart failure type Qualified Code(s): I50.9 - Heart failure, unspecified Narrative: awaiting NH placement (3) A-fib Problem: Chronic Qualifiers: Atrial fibrillation type: chronic Qualified Code(s): I48.2 - Chronic atrial fibrillation (4) Dyspnea Problem: Acute Qualifiers: Dyspnea type: shortness of breath Qualified Code(s): R06.02 - Shortness of breath (5) A-fib Problem: Chronic Qualifiers: Atrial fibrillation type: chronic Qualified Code(s): I48.2 - Chronic atrial fibrillation (6) Chronic renal failure, stage 4 (severe) Problem: Chronic (7) Diabetes mellitus Problem: Chronic Qualifiers: Diabetes mellitus type: type 2 (8) GERD (gastroesophageal reflux disease) Problem: Chronic (9) HLD (hyperlipidemia) Problem: Chronic Qualifiers: Hyperlipidemia type: mixed hyperlipidemia Qualified Code(s): E78.2 - Mixed hyperlipidemia (10) HTN (hypertension) Problem: Chronic Qualifiers: Hypertension type: essential hypertension Qualified Code(s): I10 - Essential (primary) hypertension
[2016-11-19] MEDS: POTASSIUM CHLORIDE 20 MEQ TABLET.SA PO SCH ×2 (08:50→16:28)
[2016-11-19] MEDS: CITALOPRAM HYDROBROMIDE 10 MG TABLET PO SCH (08:50)
[2016-11-19] MEDS: CHOLECALCIFEROL 1,000 UNIT CAPSULE PO SCH ×2 (08:50→20:23)
[2016-11-19] MEDS: METOPROLOL SUCCINATE 50 MG TABLET.SA PO SCH (08:52)
[2016-11-19] MEDS: FUROSEMIDE 80 MG TABLET PO SCH ×2 (08:52→16:29)
[2016-11-19] MEDS: NYSTATIN 15 APPL BTL TP SCH ×4 (08:53→20:26)
[2016-11-19] MEDS ORDERED: WARFARIN SODIUM 3 MG TABLET PO ONE (17:00)
[2016-11-19] MEDS: SIMVASTATIN 40 MG TABLET PO SCH (20:22)
[2016-11-20 06:00] LABS: Hematocrit 37.2 % (37.0-47.0); Hemoglobin 11.7 gm/dL (12.5-16.0); Mean Cell Volume 84.5 fl (78-100); Mean Corpuscular Hemoglobin 26.6 pg (27-31); Mean Corpuscular Hgb Conc 31.5 g/dl (32-36); Mean Platelet Volume 10.4 fl (6.0-9.5); Neutrophil # 4.3 K/mm3 (1.3-6.0); Neutrophil % 53.1 % (42-75.0); Platelet Count 201 K/mm3 (150-450); Red Cell Distribution Width 16.7 % (11.5-14.0); White Blood Count 8.1 K/mm3 (4.0-10.5)
[2016-11-20 06:09] LABS: Anion Gap 11.7 mmol/L (6.8-13.8); Calcium * 9.1 mg/dL (7.9-10.9); Carbon Dioxide 31.1 mmol/L (24-32.6); Estimated Creat Clear 20.4; Potassium 3.8 mmol/L (3.4-4.6)
[2016-11-20 06:17] LABS: Prothrombin Time (Patient) 18.9 Seconds (9.4-11.4)
[2016-11-20 06:20] LABS: INR 1.82 INR (0.90-1.10)
[2016-11-20] MEDS: glyBURIDE 5 MG TABLET PO SCH (07:25)
[2016-11-20] MEDS: PANTOPRAZOLE SODIUM 20 MG TABLET.DR PO SCH (07:26)
--- NOTE | 2016-11-20 08:22 | DS ---
(1) Generalized weakness Problem: Chronic (2) Acute exacerbation of CHF (congestive heart failure) Problem: Resolved Qualifiers: Congestive heart failure type: unspecified congestive heart failure type Qualified Code(s): I50.9 - Heart failure, unspecified (3) A-fib Problem: Chronic Qualifiers: Atrial fibrillation type: chronic Qualified Code(s): I48.2 - Chronic atrial fibrillation (4) Dyspnea Problem: Chronic Qualifiers: Dyspnea type: shortness of breath Qualified Code(s): R06.02 - Shortness of breath (5) A-fib Problem: Chronic Qualifiers: Atrial fibrillation type: chronic Qualified Code(s): I48.2 - Chronic atrial fibrillation (6) Chronic renal failure, stage 4 (severe) Problem: Chronic (7) Diabetes mellitus Problem: Chronic Qualifiers: Diabetes mellitus type: type 2 (8) GERD (gastroesophageal reflux disease) Problem: Chronic (9) HLD (hyperlipidemia) Problem: Chronic Qualifiers: Hyperlipidemia type: mixed hyperlipidemia Qualified Code(s): E78.2 - Mixed hyperlipidemia (10) HTN (hypertension) Problem: Chronic Qualifiers: Hypertension type: essential hypertension Qualified Code(s): I10 - Essential (primary) hypertension Description of Stay: Edna New is a 89-yr-old WF pt of Dr. Octavia Hoff with a PMH of: Anemia, A- fib, CHF, GERD, HTN, HLD, IBS & Restless Legs Syndrome who was admitted on for SOB/weight gain/edema. For the last 3 days [facility]OOK[facility] CASING, she has had been having worsening SOB with exertion and increasing weight gain of about 7 lbs. She had been taking her usual Lasix 80 mg PO twice daily and has not seen any improvement. When she walked to the bathroom and back to the living room causes her to be extremely dyspneic.Pt denied coughing, fevers and chills. She also denies n/v, abd pain & diarrhea. She was addmitted at [facility] in 08/23-08/26 for SOB & Increasing leg swelling and was diuresed with IV lasix. During evaluation at the ED today, the CXR showed diffuse interstitial lung marking which can consistent with pulmonary Edema. She also had increased swelling on her BLE with a 4 + tibial/pedal edema. She received IV Lasix at the ED and did not diurese enough. She was admiited and continued on IV diureses and lost 6 plus Kg. She was also referred to PT/OT and they felt she needed more strengthening in a NH prior to going home. She is now stable to be discharged to [facility]. Procedures Performed: none Discharge Disposition: [facility] Disposition: [facility] Condition: Stable Discharge Activity: Activity as tolerated Discharge Diet: Consistent carbs, Low salt Referrals: Octavia Hoff MD [Primary Care Provider] - Additional Patient Instructions (free text): Has [facility] ongoing for home health. Follow up with PCP in 2 weeks. Prescriptions (Any new or edited meds): Potassium Chloride [K-Dur] 20 meq PO BIDWM #60 tablet. Complete Home Medications List: Complete Home Medication List: Albuterol Sulfate [Albuterol Sulfate 2.5 MG/3 ML] 2.5 mg IH Q6H PRN 08/24/16 Citalopram Hydrobromide [Citalopram HBr] 10 mg PO DAILY 08/24/16 Enalapril Maleate [Vasotec] 5 mg PO DAILY 08/24/16 Furosemide [Lasix] 80 mg PO BID 08/24/16 Metoprolol Succinate [Toprol Xl] 50 mg PO DAILY 08/24/16 Nitroglycerin [Nitrostat] 0.4 mg SL Q5MIN PRN 08/24/16 Nystatin [Mycostatin Powder] 1 appl TP BID 08/24/16 Omeprazole [Prilosec] 20 mg PO DAILY 08/24/16 Simvastatin [Zocor] 40 mg PO HS 08/24/16 Warfarin Sodium [Jantoven] 2 mg PO DAILY 08/24/16 traMADol HCL [Ultram] 50 mg PO DAILY PRN 08/24/16 glyBURIDE [Micronase] 5 mg PO BIDAC tablet 08/26/16 Acetaminophen 1,000 mg PO Q6H PRN 11/14/16 Calcitriol 0.25 mcg PO DAILY 11/14/16 Cholecalciferol (Vitamin D3) [Vitamin D3] 1,000 unit PO BID 11/14/16 Potassium Chloride [K-Dur] 20 meq PO BIDWM #60 tablet.sa 11/20/16
[2016-11-20] MEDS: CALCITRIOL 0.25 MCG CAPSULE PO SCH (09:50)
[2016-11-20] MEDS: CITALOPRAM HYDROBROMIDE 10 MG TABLET PO SCH (09:50)
[2016-11-20] MEDS: FUROSEMIDE 80 MG TABLET PO SCH (09:50)
[2016-11-20] MEDS: METOPROLOL SUCCINATE 50 MG TABLET.SA PO SCH (09:50)
[2016-11-20] MEDS: POTASSIUM CHLORIDE 20 MEQ TABLET.SA PO SCH (09:50)
[2016-11-20] MEDS: CHOLECALCIFEROL 1,000 UNIT CAPSULE PO SCH (09:50)
[2016-11-20 09:51] VITALS: BP 115/70
[2016-11-20] MEDS: NYSTATIN 15 APPL BTL TP SCH (09:51)
[2016-11-20] MEDS ORDERED: WARFARIN SODIUM 2 MG TABLET PO SCH (17:00)
== END 2016-11-20 11:15 | DRG 292 ==
LOC: ER 14:57 → MS 17:32 → OBSVTOIN 11-15 13:58
PROVIDERS: ADMIT Internal Medicine; ATTEND Internal Medicine
DX: I50.33 Acute on chronic diastolic (congestive) heart failure (principal); N18.4 Chronic kidney disease, stage 4 (severe); R53.1 Weakness; E78.2 Mixed hyperlipidemia; I12.9 Hypertensive chronic kidney disease with stage 1 through stage 4 chronic kidney disease, or unspecified chronic kidney disease; I48.2 Chronic atrial fibrillation; E11.9 Type 2 diabetes mellitus without complications; Z79.01 Long term (current) use of anticoagulants
CPT/HCPCS: 36415; 71010; 80048; 80053; 83880; 84145; 84484; 85025; 85610; 92610; 93005; 96374; 97110; 97116; 97161; 97165; 97535; 99284; G0378; G8987; G8988; G8989; G8996; G8997; G8998

== ENCOUNTER 2017-01-17 11:10 | Observation (INO) | payer MEDICARE, BC, OTHER ==
--- NOTE | 2017-01-17 11:57 | ERNOTE ---
Trauma/Assault HPI - Narrative Date of Service: 01/17/17 - General Stated Complaint: RIBS AND BACK PAIN Time Seen by Provider: 01/17/17 11:30 Source: patient Exam Limitations: no limitations - Immun/Allergies/Home Medications Immunizations: IMMUNIZATION HX Immunizations Up to Date Yes History of Influenza Vaccine Yes Hx Pneumococcal Vaccination Yes Allergies/Adverse Reactions: Allergies No Known Allergies Allergy (Verified 01/17/17 11:27) Home Medications: HOME MEDICATIONS Albuterol Sulfate [Albuterol Sulfate 2.5 MG/3 ML] 2.5 mg IH Q6H PRN 08/24/16 [ Last Taken Unknown] Citalopram Hydrobromide [Citalopram HBr] 10 mg PO DAILY 08/24/16 [Last Taken ] Furosemide [Lasix] 80 mg PO BID 08/24/16 [Last Taken 08/23/16] Nitroglycerin [Nitrostat] 0.4 mg SL Q5MIN PRN 08/24/16 [Last Taken Unknown] Nystatin [Mycostatin Powder] 1 appl TP BID 08/24/16 [Last Taken 08/23/16] Omeprazole [Prilosec] 20 mg PO DAILY 08/24/16 [Last Taken 08/23/16] Simvastatin [Zocor] 40 mg PO HS 08/24/16 [Last Taken 08/22/16] Warfarin Sodium [Jantoven] 2 mg PO DAILY 08/24/16 [Last Taken 08/23/16] traMADol HCL [Ultram] 50 mg PO DAILY PRN 08/24/16 [Last Taken Unknown] glyBURIDE [Micronase] 5 mg PO BIDAC tablet 08/26/16 [Last Taken Unknown] Acetaminophen 1,000 mg PO Q6H PRN 11/14/16 [Last Taken Unknown] Calcitriol 0.25 mcg PO DAILY 11/14/16 [Last Taken Unknown] Cholecalciferol (Vitamin D3) [Vitamin D3] 1,000 unit PO BID 11/14/16 [Last Taken Unknown] Potassium Chloride [K-Dur] 20 meq PO BIDWM #60 tablet.sa 11/20/16 [Last Taken Unknown] Warfarin Sodium [Coumadin] 3 mg PO DAILY 01/17/17 [Last Taken Unknown] - History of Present Illness Narrative: Pt. comes in with c/o R posterior rib pain after falling on her back twice in the past four days once on Sunday and once on Sunday. Pt. states tath she get wore out very easily transferring form her recliner to her commode and falls before she gets to the commode. Pt. denies hitting her head. Pt. is on coumadin for Afib and has a hx of CHF and has noticed her feet are more swollen recently and her weight is increasing. Review of Systems - Review of Systems Constitutional: Present: weakness, fatigue, malaise. Absent: recent illness, fever, chills EYE: Present: no symptoms reported ENT: Present: no symptoms reported Respiratory: Present: shortness of breath Cardiology: Present: edema. Absent: chest pain, palpitations, syncope Gastrointestinal/Abdominal: Present: no symptoms reported. Absent: nausea, vomiting, diarrhea, abdominal pain, eating less, drinking less Genitourinary: Present: no symptoms reported. Absent: frequency, pain, dysuria , hematuria, decreased urinary output, discharge Musculoskeletal: Present: back pain - L posterior ribs. Absent: neck pain, joint pain Skin: Present: no symptoms reported. Absent: rash, change in color, change in hair/nails Neurological: Present: no symptoms reported. Absent: headache, dizziness/light- headedness, numbness, tingling All Other Systems: All systems neg except as marked - Patient's Past Medical History Patient History - Medical: Anemia, Diabetes Type 2, Obesity Patient History - Cardiac/Respiratory: Atrial Fibrillation, CHF, Hypertension, Hyperlipidemia Patient History - Cancer: Colon Patient History - Surgical Procedures: Cancer Surgery, Cataracts, Cholecystectomy, Colon Resection, Other Patient History - Other: None LMP (females 10-50): Menopausal - Family History Brother Family History - Medical: Diabetes Type 2, Seizures Family History - Cardiac/Respiratory: No pertinent hx Father Family History - Medical: , Other Family History - Cardiac/Respiratory: History Unknown Mother Family History - Medical: , Diabetes Type 2 Family History - Cardiac/Respiratory: Hypertension - Social History Living Situations: alone Abuse History: No History of abuse Psych History: No pertinent hx Alcohol Use: none Drug Use: none - Immunizations Immunizations Up to Date: Yes Hx Pneumococcal Vaccination: Yes History of Influenza Vaccine: Yes Physical Exam - Physical Exam General Appearance: Present: wd/wn, alert, no apparent distress Head Exam: Present: normal inspection, no evidence of injury, no tenderness w palpation Eye Exam: Normal inspection: bilateral, PERRL: bilateral, EOMI: bilateral Ears, Nose, Throat: Present: normal ENT inspection, dry mucous membranes Neck: Present: normal inspection, nontender, supple, full range of motion. Absent: lymphadenopathy (R), lymphadenopathy (L), tender lateral, tender posterior midline Respiratory: Present: no respiratory distress, no accessory muscle use, chest nontender, decreased breath sounds - BLL, crackles - course BUL. Absent: wheezing Cardiovascular/Chest: Present: bradycardia, irregularly irregular Peripheral Pulses: N=norm/S=strong/W=weak/B=bound/A=absent: Carotid (R): Normal , Carotid (L): Normal, Radial (R): Normal, Radial (L): Normal, Femoral (R): Normal, Femoral (L): Normal, Dorsalis-pedis (R): Weak, Dorsalis-pedis (L): Weak Gastrointestinal/Abdominal: Present: normal bowel sounds, nontender, soft, no organomegaly, distended Back Exam: Present: no CVA tenderness, no vertebral tenderness, decreased range of motion Extremity Exam: Present: pedal edema, extremity edema - from grointo feet + 4 pitting edema L greater than r. Absent: decreased range of motion, calf tenderness, bony tenderness, joint redness, joint swelling Neurological Exam: Present: alert, oriented, normal mood/affect, no motor/ sensory deficits Skin Exam: Present: warm/dry, pallor, other - redness and mottling all extremities in scattered patches. various wounds where pt. has picked skin on all extremities. Absent: skin rash ED Progress - Date and Time Seen: Date and Time: 01/17/17 11:52 Pt. desaturated to 85% on room air to placed on 2 LNC and was 92 %. 01/17/17 13:[address] Ervin and he accepts admission of pt. for CHF exacerbation and weakness. He does not recommend any further treatment prior to admit. - Results and Orders Patient's Lab Results:: I have reviewed the patient's lab results. - Vital Signs Patient's Vital Signs:: I have reviewed the patient's vital signs. Vital Signs: Vital Signs 01/17/17 11:20 Temperature 36.5 C Pulse Rate 66 Respiratory 16 Rate Blood Pressure 97/63 O2 Sat by Pulse 95 Oximetry - EKG EKG: other - SR with PAC nonspecific ST change - X-Ray X-Ray #1 X-Ray: chest Interpretation: Reviewed by me X-ray Comments: Radiology read as no acute CP process however I and Dr Sousa feel that pt has increased pulmonary edema and increased cardiomegaly. 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
[2017-01-17 11:58] LABS: Hematocrit 35.7 % (37.0-47.0); Hemoglobin 11.4 gm/dL (12.5-16.0); Mean Cell Volume 85.6 fl (78-100); Mean Corpuscular Hemoglobin 27.3 pg (27-31); Mean Corpuscular Hgb Conc 31.9 g/dl (32-36); Mean Platelet Volume 10.1 fl (6.0-9.5); Platelet Count 204 K/mm3 (150-450); Red Blood Count 4.17 M/mm3 (4.2-5.4); Red Cell Distribution Width 15.9 % (11.5-14.0); White Blood Count 7.7 K/mm3 (4.0-10.5)
[2017-01-17 11:59] LABS: Neutrophil # 5.3 K/mm3 (1.3-6.0)
[2017-01-17 12:16] LABS: Troponin I Less than 0.017 ng/ml (0.00-0.10)
[2017-01-17 12:18] LABS: ALT 16 U/L (19-67); AST 15 U/L (0-48); Albumin * 2.6 gm/dl (3.4-5.0); Alkaline Phosphatase * 165 U/L (50-170); Anion Gap 13.3 mmol/L (6.8-13.8); BNP * 12360 pg/mL (5-550); BUN/Creatinine Ratio 23.4 (9.0-21.6); Bilirubin, Total 1.1 mg/dL (0.0-1.1); Blood Urea Nitrogen 41 mg/dL (3-23); Ca. Corrected For Albumin 9.1 mg/dL (8.4-10.2); Calcium * 8.3 mg/dL (7.9-10.9); Carbon Dioxide 27.1 mmol/L (24-32.6); Chloride 98 mmol/L (97-106); Glucose * 271 mg/dL (70-110); Potassium 4.4 mmol/L (3.4-4.6); Sodium 134 mmol/L (132-142); Total Protein 7.2 gm/dL (6.2-8.2)
[2017-01-17 12:49] LABS: Urine Bilirubin Negative (NEGATIVE); Urine Blood Negative /ul (NEGATIVE); Urine Ketone Negative (NEGATIVE); Urine Nitrite Negative (NEGATIVE); Urine Protein Negative (NEGATIVE); Urine Urobilinogen Normal (NORMAL); Urine pH 5.5 pH (5.0-7.0)
[2017-01-17 12:51] LABS: Urine Appearance Clear; Urine Color Yellow; Urine RBC None Seen /hpf (0-5); Urine WBC None Seen /hpf (0-5)
[2017-01-17 12:52] LABS: Urine Bacteria None Seen; Urine Squamous Epithelial Cell None Seen /hpf
[2017-01-17] MEDS ORDERED: FUROSEMIDE 10 MG/ML VIAL ONE (12:59)
[2017-01-17 13:42] LABS: INR 2.74 INR (0.90-1.10); Prothrombin Time (Patient) 28.5 Seconds (9.4-11.4)
--- NOTE | 2017-01-17 16:42 | HP ---
Chief Complaint - Chief Complaint Date of Service: 01/17/17 Time of Service: 16:37 Chief Complaint: fall and rib pain/right shoulder pain. History of Present Illness: Edna New , is an 89-year-old white female, patient of Dr. Hoff, with previous medical history of coronary artery disease, diabetes mellitus type 2, atrial fibrillation, chronic, hypertension, who was admitted on 01/17/2017 because of a fall with right rib pain as well as right shoulder pain. Patient says that for the last week she has fallen about 3-4 times because her legs would just just give out on her. In the ER , her rib series was negative for rib fractures. She was however noticed to have swollen legs and elevated BNP of 12,310. Her creatinine was 1.75 and her troponin was less than 0.017. Her EKG showed normal sinus rhythm with PAC as per nurse practitioner. Her CXR was oficially read as no acute cardiopulmonary findings . She was then admitted for acute exacerbation of congestive heart failure. The patient denies any shortness of breath swelling of extremity orthopnea, or paroxysmal nocturnal dyspnea, but she is a very poor historian. She was then admitted for observation and IV diuresis. - Patient's Past Medical History Patient History - Medical: Anemia, Diabetes Type 2, Obesity, Other Patient History - Cardiac/Respiratory: Atrial Fibrillation, CHF, Hypertension, Hyperlipidemia Patient History - Cancer: Colon Patient History - Surgical Procedures: Cancer Surgery, Cataracts, Cholecystectomy, Colon Resection, Other Patient History - Other: None LMP (females 10-50): Menopausal - Family History Brother Family History - Medical: Diabetes Type 2, Seizures Family History - Cardiac/Respiratory: No pertinent hx Father Family History - Medical: , Other Family History - Cardiac/Respiratory: History Unknown Mother Family History - Medical: , Diabetes Type 2 Family History - Cardiac/Respiratory: Hypertension - Social History Living Situations: alone Abuse History: No History of abuse Psych History: No pertinent hx Smoking Status: Former smoker Have you smoked in the past 12 months: No Do you dip or chew tobacco: No Alcohol Use: none Drug Use: none - Immunizations Immunizations Up to Date: Yes Hx Pneumococcal Vaccination: Yes History of Influenza Vaccine: Yes Review Of Systems (GEN) - Review of Systems Generalized/Overall Review: Present: Weakness. Absent: Weight gain EENTM: Present: No Symptoms Reported Respiratory: Absent: Cough, Shortness of Breath, Orthopnea Cardiac: Present: Edema - everybody was telling me it was big. Absent: Chest Pain, Palpitations Abdominal: Absent: Nausea, Vomiting Genitourinary: Absent: Urgency, Frequency Musculoskeletal: Present: Joint Pain Allergies/Adverse Reactions: Allergies Allergy/AdvReac Type Severity Reaction Status Date / Time No Known Allergies Allergy Verified 01/17/17 11:27 Home Medications: HOME MEDICATIONS Albuterol Sulfate [Albuterol Sulfate 2.5 MG/3 ML] 2.5 mg IH Q6H PRN 08/24/16 [ Last Taken 01/17/17] Citalopram Hydrobromide [Citalopram HBr] 10 mg PO DAILY 08/24/16 [Last Taken ] Furosemide [Lasix] 80 mg PO BID 08/24/16 [Last Taken 01/17/17] Nitroglycerin [Nitrostat] 0.4 mg SL Q5MIN PRN 08/24/16 [Last Taken 01/17/17] Nystatin [Mycostatin Powder] 1 appl TP BID 08/24/16 [Last Taken 01/17/17] Omeprazole [Prilosec] 20 mg PO DAILY 08/24/16 [Last Taken 01/17/17] Simvastatin [Zocor] 40 mg PO HS 08/24/16 [Last Taken 01/16/17] Warfarin Sodium [Jantoven] 2 mg PO DAILY 08/24/16 [Last Taken 01/17/17] traMADol HCL [Ultram] 50 mg PO DAILY PRN 08/24/16 [Last Taken 01/17/17] glyBURIDE [Micronase] 5 mg PO BIDAC tablet 08/26/16 [Last Taken 01/17/17] Acetaminophen 1,000 mg PO Q6H PRN 11/14/16 [Last Taken 01/17/17] Calcitriol 0.25 mcg PO DAILY 11/14/16 [Last Taken 01/17/17] Cholecalciferol (Vitamin D3) [Vitamin D3] 1,000 unit PO BID 11/14/16 [Last Taken 01/17/17] Potassium Chloride [K-Dur] 20 meq PO BIDWM #60 tablet.sa 11/20/16 [Last Taken ] Warfarin Sodium [Coumadin] 3 mg PO DAILY 01/17/17 [Last Taken 01/17/17] Exam - Exam Vital Signs: Vital Signs - Last Taken Temp 37.1 C 01/17/17 14:09 Pulse 65 01/17/17 14:15 Resp 20 01/17/17 14:09 BP 109/66 01/17/17 14:09 Pulse Ox 92 01/17/17 14:09 Constitutional: Present: Alert, Oriented x3, Cooperative, Elderly ENT Exam: Present: hearing grossly normal Eye Exam: bilateral eye: normal inspection, PERRL, EOMI Neck: Present: supple Back Exam: Present: no CVA tenderness Breasts: Present: Exam deferred Respiratory: Present: decreased breath sounds, rales, No wheezing Cardiovascular/Chest: Present: JVD, systolic murmur, irregularly irregular Abdomen: Present: Normal bowel sounds, soft, nontender, nondistended Extremity: Present: no calf tenderness, lower extremity edema Skin Exam: Present: other - positive excoriation below breast per Nursing notes , stage scral decubitus ulcer Diagnostic Studies: Laboratory Results WBC 7.7 K/mm3 (4.0-10.5) 01/17/17 11:45 RBC 4.17 M/mm3 (4.2-5.4) L 01/17/17 11:45 Hgb 11.4 gm/dL (12.5-16.0) L 01/17/17 11:45 Hct 35.7 % (37.0-47.0) L 01/17/17 11:45 MCV 85.6 fl (78-100) 01/17/17 11:45 MCH 27.3 pg (27-31) 01/17/17 11:45 MCHC 31.9 g/dl (32-36) L 01/17/17 11:45 RDW 15.9 % (11.5-14.0) H 01/17/17 11:45 Plt Count 204 K/mm3 (150-450) 01/17/17 11:45 MPV 10.1 fl (6.0-9.5) H 01/17/17 11:45 Immature Gran % (Auto) 0.30 % (0.001-0.429) 01/17/17 11:45 Immature Gran # (Auto) 0.02 K/mm3 (0.000-0.0310) 01/17/17 11:45 Neutrophils % 69.0 % (42-75.0) 01/17/17 11:45 Lymphocytes % 22.7 % (20-51) 01/17/17 11:45 Monocytes % 6.3 % (0.0-9) 01/17/17 11:45 Eosinophils % 1.3 % (0.0-3.0) 01/17/17 11:45 Basophils % 0.4 % (0.0-1.0) 01/17/17 11:45 Nucleated RBC % 0.0 k/mm3 (0-1) 01/17/17 11:45 Neutrophils # 5.3 K/mm3 (1.3-6.0) 01/17/17 11:45 Lymphocytes # 1.7 k/mm3 (1.5-3.5) 01/17/17 11:45 Monocytes # 0.5 k/mm3 (0.0-1.0) 01/17/17 11:45 Eosinophils # 0.1 k/mm3 (0.0-0.7) 01/17/17 11:45 Absolute Basophils 0.0 k/mm3 (0.0-0.1) 01/17/17 11:45 PT 28.5 Seconds (9.4-11.4) H 01/17/17 11:45 INR (Anticoag Therapy) 2.74 INR (0.90-1.10) H 01/17/17 11:45 Sodium 134 mmol/L (132-142) 01/17/17 11:45 Plasma Sodium 137 mmol/L (130-142) 01/17/17 11:45 Potassium 4.4 mmol/L (3.4-4.6) 01/17/17 11:45 Chloride 98 mmol/L (97-106) 01/17/17 11:45 Carbon Dioxide 27.1 mmol/L (24-32.6) 01/17/17 11:45 Anion Gap 13.3 mmol/L (6.8-13.8) 01/17/17 11:45 BUN 41 mg/dL (3-23) H 01/17/17 11:45 Creatinine 1.75 mg/dL (0.4-1.4) H 01/17/17 11:45 Est GFR (Non-Af Amer) 29 mL/min (60-130) L 01/17/17 11:45 BUN/Creatinine Ratio 23.4 (9.0-21.6) H 01/17/17 11:45 Random Glucose 271 mg/dL (70-110) H 01/17/17 11:45 Calcium 8.3 mg/dL (7.9-10.9) 01/17/17 11:45 Calcium Adj for Albumin 9.1 mg/dL (8.4-10.2) 01/17/17 11:45 Total Bilirubin 1.1 mg/dL (0.0-1.1) 01/17/17 11:45 AST 15 U/L (0-48) 01/17/17 11:45 ALT 16 U/L (19-67) L 01/17/17 11:45 Alkaline Phosphatase 165 U/L (50-170) 01/17/17 11:45 Troponin I Less than 0.017 ng/ml (0.00-0.10) 01/17/17 11:45 B-Natriuretic Peptide 10996 pg/mL (5-550) H 01/17/17 11:45 Total Protein 7.2 gm/dL (6.2-8.2) 01/17/17 11:45 Albumin 2.6 gm/dl (3.4-5.0) L 01/17/17 11:45 Urine Color Yellow 01/17/17 12:24 Urine Appearance Clear 01/17/17 12:24 Urine pH 5.5 pH (5.0-7.0) 01/17/17 12:24 Ur Specific [place] 1.010 SP.GR. (1.005-1.010) 01/17/17 12:24 Urine Protein Negative mg/dL (NEGATIVE) 01/17/17 12:24 Urine Glucose (UA) Negative mg/dL (NEGATIVE) 01/17/17 12:24 Urine Ketones Negative mg/dL (NEGATIVE) 01/17/17 12:24 Urine Blood Negative /ul (NEGATIVE) 01/17/17 12:24 Urine Nitrate Negative (NEGATIVE) 01/17/17 12:24 Urine Bilirubin Negative mg/dl (NEGATIVE) 01/17/17 12:24 Urine Urobilinogen Normal EU/dl (NORMAL) 01/17/17 12:24 Ur Leukocyte Esterase Negative /ul (NEGATIVE) 01/17/17 12:24 Urine RBC None seen /hpf (0-5) 01/17/17 12:24 Urine WBC None seen /hpf (0-5) 01/17/17 12:24 Ur Epithelial Cells None seen /hpf (0-5) 01/17/17 12:24 Ur Squamous Epith Cells None seen /hpf (NONE) 01/17/17 12:24 Urine Bacteria None seen (NONE) 01/17/17 12:24 Urine Culture Comments No culture indicated 01/17/17 12:24 Assessment/Plan - Assessment/Plan (1) Acute on chronic diastolic (congestive) heart failure Assessment: Continue with IV lasix will add zaroxylin. monitor I 's and O's and daily weight. Problem: Acute (2) Falls Assessment: will get LS xray . will refer to PT. Problem: Acute (3) Rib pain on right side Assessment: contusion. continue with pain meds. Problem: Acute (4) Shoulder pain Assessment: will get a shoulder Xray. will refer to PT. Problem: Acute Qualifiers: Chronicity: acute (5) Generalized weakness Assessment: will refer to PT. will d a LS xray. Problem: Acute (6) Chronic renal failure, stage 4 (severe) Assessment: with Acute Renal failure, likely prerenal. Problem: Chronic (7) Diabetes mellitus Problem: Chronic Qualifiers: Diabetes mellitus type: type 2 (8) GERD (gastroesophageal reflux disease) Problem: Chronic (9) HLD (hyperlipidemia) Problem: Chronic Qualifiers: Hyperlipidemia type: mixed hyperlipidemia Qualified Code(s): E78.2 - Mixed hyperlipidemia (10) HTN (hypertension) Problem: Chronic Qualifiers: Hypertension type: essential hypertension Qualified Code(s): I10 - Essential (primary) hypertension (11) Pulmonary hypertension Problem: Chronic
[2017-01-17] MEDS ORDERED: ACETAMINOPHEN 500 MG TABLET PO PRN (17:05)
[2017-01-17] MEDS ORDERED: traMADol HCL 50 MG TABLET PO PRN (17:05)
[2017-01-17] MEDS ORDERED: ALBUTEROL SULFATE 2.5 MG/3 ML VIAL.NEB IH PRN (17:05)
[2017-01-17] MEDS ORDERED: NITROGLYCERIN 0.4 MG/TAB BTL SL PRN (17:05)
[2017-01-17] MEDS: NYSTATIN 15 APPL BTL TP SCH (20:57)
[2017-01-17] MEDS: CHOLECALCIFEROL 1,000 UNIT CAPSULE PO SCH (20:57)
[2017-01-17] MEDS: SIMVASTATIN 40 MG TABLET PO SCH (20:58)
[2017-01-17] MEDS: METOLAZONE 2.5 MG TABLET PO SCH (20:58)
[2017-01-17] MEDS ORDERED: FUROSEMIDE 10 MG/ML VIAL IV SCH ×2 (21:00)
[2017-01-17] MEDS: FUROSEMIDE 10 MG/ML VIAL IV SCH (21:10)
[2017-01-18 06:44] LABS: Anion Gap 11.8 mmol/L (6.8-13.8); BUN/Creatinine Ratio 25.5 (9.0-21.6); Calcium * 8.1 mg/dL (7.9-10.9); Carbon Dioxide 26.8 mmol/L (24-32.6); Estimated Creat Clear 20.5; Potassium 3.6 mmol/L (3.4-4.6)
[2017-01-18] MEDS: glyBURIDE 5 MG TABLET PO SCH ×2 (06:53→16:07)
[2017-01-18] MEDS: PANTOPRAZOLE SODIUM 20 MG TABLET.DR PO SCH (06:53)
[2017-01-18 06:54] LABS: INR 1.92 INR (0.90-1.10)
--- NOTE | 2017-01-18 07:59 | PN ---
Progess Note - Interim Narrative: 01/18/17 07:57 LS xray- no acute findings, no fracture no mention of spinal stenosis, positive degenerative changes. Continue with IV diresis while awaiting for PT eval and treamtnet. Possible discharge to day with HH and home PT vs NH PT.
[2017-01-18] MEDS ORDERED: POTASSIUM CHLORIDE 20 MEQ TABLET.SA PO SCH ×2 (09:00)
[2017-01-18] MEDS: METOLAZONE 2.5 MG TABLET PO SCH ×2 (09:28→20:49)
[2017-01-18] MEDS: CALCITRIOL 0.25 MCG CAPSULE PO SCH (09:28)
[2017-01-18] MEDS: CITALOPRAM HYDROBROMIDE 10 MG TABLET PO SCH (09:29)
[2017-01-18] MEDS: POTASSIUM CHLORIDE 20 MEQ, POTASSIUM CHLORIDE 10 MEQ PO SCH ×4 (09:29→16:07)
[2017-01-18] MEDS: NYSTATIN 15 APPL BTL TP SCH ×2 (09:29→20:50)
[2017-01-18] MEDS: CHOLECALCIFEROL 1,000 UNIT CAPSULE PO SCH ×2 (09:29→20:49)
[2017-01-18] MEDS: FUROSEMIDE 10 MG/ML VIAL IV SCH ×2 (10:10→20:43)
--- NOTE | 2017-01-18 13:36 | DS ---
(1) Acute on chronic diastolic (congestive) heart failure Diagnosis(s): improved Problem: Acute (2) Falls Diagnosis(s): will need HH and home PT. Problem: Acute (3) Rib pain on right side Problem: Acute (4) Shoulder pain Problem: Acute Qualifiers: Chronicity: acute (5) Generalized weakness Problem: Acute (6) Chronic renal failure, stage 4 (severe) Diagnosis(s): home PT Problem: Chronic (7) Diabetes mellitus Problem: Chronic Qualifiers: Diabetes mellitus type: type 2 (8) GERD (gastroesophageal reflux disease) Problem: Chronic (9) HLD (hyperlipidemia) Problem: Chronic Qualifiers: Hyperlipidemia type: mixed hyperlipidemia Qualified Code(s): E78.2 - Mixed hyperlipidemia (10) HTN (hypertension) Problem: Chronic Qualifiers: Hypertension type: essential hypertension Qualified Code(s): I10 - Essential (primary) hypertension (11) Pulmonary hypertension Problem: Chronic Description of Stay: Edna New , is an 89-year-old white female, patient of Dr. Hoff, with previous medical history of coronary artery disease, diabetes mellitus type 2, atrial fibrillation, chronic, hypertension, who was admitted on 01/17/2017 because of a fall with right rib pain as well as right shoulder pain. Patient says that for the last week she has fallen about 3-4 times because her legs would just just give out on her. In the ER , her rib series was negative for rib fractures. She was however noticed to have swollen legs and elevated BNP of 12,310. Her creatinine was 1.75 and her troponin was less than 0.017. Her EKG showed normal sinus rhythm with PAC as per nurse practitioner. Her CXR was oficially read as no acute cardiopulmonary findings . She was then admitted for acute exacerbation of congestive heart failure. The patient denied any shortness of breath swelling of extremity orthopnea, or paroxysmal nocturnal dyspnea, but she is a very poor historian. She was then admitted for observation and IV diuresis. Zaroxylin was added to her IV lasix. PT evaluated her. Her right shoulder xrays shpwed no acute osseous findings, high riding shoulder- chronic rotator cuff pathology and her LS xray showed OA. She may need MRI on outpatient basis to rule out spinal stenosis but she is 89 . I will leave this with her PCP. The family does not want NH for strengthening exerices. Will doscharge her on Lasix and zaroxylin for more 2 more days, increase her KCl to 30 meq BID x 2 days and then vack to her usual 20 meq BID and repeat her BMP and BNP in 1 week. ADDENDUM: HER DISCHARGE WAS CANCELLED. THIS WILL SERVE MY PROGRESS NOTES FOR TODAY. Procedures Performed: none Discharge Disposition: Home self care Disposition: Home self-care Condition: Fair Discharge Activity: Activity as tolerated Discharge Diet: Consistent carbs, Low salt Shelter Therapy: Physicial Therapy Referrals: Octavia Hoff MD [Primary Care Provider] - Problem Oriented Discharge Instructions to Patient/Family: Heart Failure, Easy- to-Read Additional Patient Instructions (free text): Mobile Nursing ongoing, please fax and call discharge information. Refer for HH and home PT. Follow up with Dr. Hoff on January 25 at 2:15. Prescriptions (Any new or edited meds): Metolazone [Zaroxolyn] 2.5 mg PO BID #4 tablet Potassium Chloride [K-Dur] 20 meq PO BIDWM #60 tablet.sa Potassium Chloride [Klor-Con 10] 30 meq PO BIDWM #4 tablet.sa traMADol HCL [Ultram] 50 mg PO TID PRN #60 tablet PRN Reason: Pain Complete Home Medications List: Complete Home Medication List: Albuterol Sulfate [Albuterol Sulfate 2.5 MG/3 ML] 2.5 mg IH Q6H PRN 08/24/16 Citalopram Hydrobromide [Citalopram HBr] 10 mg PO DAILY 08/24/16 Furosemide [Lasix] 80 mg PO BID 08/24/16 Nitroglycerin [Nitrostat] 0.4 mg SL Q5MIN PRN 08/24/16 Nystatin [Mycostatin Powder] 1 appl TP BID 08/24/16 Omeprazole [Prilosec] 20 mg PO DAILY 08/24/16 Simvastatin [Zocor] 40 mg PO HS 08/24/16 Warfarin Sodium [Jantoven] 2 mg PO DAILY 08/24/16 glyBURIDE [Micronase] 5 mg PO BIDAC tablet 08/26/16 Acetaminophen 1,000 mg PO Q6H PRN 11/14/16 Calcitriol 0.25 mcg PO DAILY 11/14/16 Cholecalciferol (Vitamin D3) [Vitamin D3] 1,000 unit PO BID 11/14/16 Warfarin Sodium [Coumadin] 3 mg PO DAILY 01/17/17 Metolazone [Zaroxolyn] 2.5 mg PO BID #4 tablet 01/18/17 Potassium Chloride [K-Dur] 20 meq PO BIDWM #60 tablet. 01/18/17 Potassium Chloride [Klor-Con 10] 30 meq PO BIDWM #4 tablet. 01/18/17 traMADol HCL [Ultram] 50 mg PO TID PRN #60 tablet 01/18/17 Amb Orders for Discharge: Basic Metabolic Panel Time Frame: 01/25/17, Location: Determined By Patient BNP * Time Frame: 01/25/17, Location: Determined By Patient
[2017-01-18] MEDS ORDERED: WARFARIN SODIUM 2 MG TABLET PO SCH (17:00)
[2017-01-18] MEDS: SIMVASTATIN 40 MG TABLET PO SCH (20:49)
[2017-01-19 06:42] VITALS: BP 110/58
[2017-01-19 06:42] LABS: Prothrombin Time (Patient) 18.4 Seconds (9.4-11.4)
[2017-01-19 06:58] LABS: INR 1.77 INR (0.90-1.10)
[2017-01-19] MEDS: glyBURIDE 5 MG TABLET PO SCH (07:14)
[2017-01-19] MEDS: PANTOPRAZOLE SODIUM 20 MG TABLET.DR PO SCH (07:14)
--- NOTE | 2017-01-19 08:03 | DS ---
(1) Acute on chronic diastolic (congestive) heart failure Problem: Acute (2) Falls Problem: Acute (3) Rib pain on right side Problem: Acute (4) Shoulder pain Problem: Acute Qualifiers: Chronicity: acute (5) Generalized weakness Problem: Acute (6) Chronic renal failure, stage 4 (severe) Problem: Chronic (7) Diabetes mellitus Problem: Chronic Qualifiers: Diabetes mellitus type: type 2 (8) GERD (gastroesophageal reflux disease) Problem: Chronic (9) HLD (hyperlipidemia) Problem: Chronic Qualifiers: Hyperlipidemia type: mixed hyperlipidemia Qualified Code(s): E78.2 - Mixed hyperlipidemia (10) HTN (hypertension) Problem: Chronic Qualifiers: Hypertension type: essential hypertension Qualified Code(s): I10 - Essential (primary) hypertension (11) Pulmonary hypertension Problem: Chronic Description of Stay: Edna New , is an 89-year-old white female, patient of Dr. Hoff, with previous medical history of coronary artery disease, diabetes mellitus type 2, atrial fibrillation, chronic, hypertension, who was admitted on 01/17/2017 because of a fall with right rib pain as well as right shoulder pain. Patient says that for the last week she has fallen about 3-4 times because her legs would just just give out on her. In the ER , her rib series was negative for rib fractures. She was however noticed to have swollen legs and elevated BNP of 12,310. Her creatinine was 1.75 and her troponin was less than 0.017. Her EKG showed normal sinus rhythm with PAC as per nurse practitioner. Her CXR was oficially read as no acute cardiopulmonary findings . She was then admitted for acute exacerbation of congestive heart failure. The patient denied any shortness of breath swelling of extremity orthopnea, or paroxysmal nocturnal dyspnea, but she is a very poor historian. She was then admitted for observation and IV diuresis. Zaroxylin was added to her IV lasix. PT evaluated her. Her right shoulder xrays shpwed no acute osseous findings, high riding shoulder- chronic rotator cuff pathology and her LS xray showed OA. She may need MRI on outpatient basis to rule out spinal stenosis but she is 89 . I will leave this with her PCP. The family does not want NH for strengthening exerices. Will discharge her on Lasix and zaroxylin for more 2 more days, increase her KCl to 30 meq BID x 2 days and then back to her usual 20 meq BID and repeat her BMP and BNP in 1 week. Her discharge yesterday was cancelled. She is stable today to be discharge . Procedures Performed: none Discharge Disposition: Home self care Disposition: Home self-care Condition: Fair Referrals: Octavia Hoff MD [Primary Care Provider] - Problem Oriented Discharge Instructions to Patient/Family: Heart Failure, Easy- to-Read Additional Patient Instructions (free text): Mobile Nursing ongoing, please fax and call discharge information. Refer for HH and home PT. Follow up with Dr. Hoff on January 25 at 2:15. Prescriptions (Any new or edited meds): Metolazone [Zaroxolyn] 2.5 mg PO BID #4 tablet Potassium Chloride [K-Dur] 20 meq PO BIDWM #60 tablet.sa Potassium Chloride [Klor-Con 10] 30 meq PO BIDWM #4 tablet.sa traMADol HCL [Ultram] 50 mg PO TID PRN #60 tablet PRN Reason: Pain Complete Home Medications List: Complete Home Medication List: Albuterol Sulfate [Albuterol Sulfate 2.5 MG/3 ML] 2.5 mg IH Q6H PRN 08/24/16 Citalopram Hydrobromide [Citalopram HBr] 10 mg PO DAILY 08/24/16 Furosemide [Lasix] 80 mg PO BID 08/24/16 Nitroglycerin [Nitrostat] 0.4 mg SL Q5MIN PRN 08/24/16 Nystatin [Mycostatin Powder] 1 appl TP BID 08/24/16 Omeprazole [Prilosec] 20 mg PO DAILY 08/24/16 Simvastatin [Zocor] 40 mg PO HS 08/24/16 Warfarin Sodium [Jantoven] 2 mg PO DAILY 08/24/16 glyBURIDE [Micronase] 5 mg PO BIDAC tablet 08/26/16 Acetaminophen 1,000 mg PO Q6H PRN 11/14/16 Calcitriol 0.25 mcg PO DAILY 11/14/16 Cholecalciferol (Vitamin D3) [Vitamin D3] 1,000 unit PO BID 11/14/16 Warfarin Sodium [Coumadin] 3 mg PO DAILY 01/17/17 Metolazone [Zaroxolyn] 2.5 mg PO BID #4 tablet 01/18/17 Potassium Chloride [K-Dur] 20 meq PO BIDWM #60 tablet. 01/18/17 Potassium Chloride [Klor-Con 10] 30 meq PO BIDWM #4 tablet. 01/18/17 traMADol HCL [Ultram] 50 mg PO TID PRN #60 tablet 01/18/17 Amb Orders for Discharge: Basic Metabolic Panel Time Frame: 01/25/17, Location: Determined By Patient BNP * Time Frame: 01/25/17, Location: Determined By Patient
[2017-01-19] MEDS: POTASSIUM CHLORIDE 20 MEQ, POTASSIUM CHLORIDE 10 MEQ PO SCH ×2 (09:06)
[2017-01-19] MEDS: NYSTATIN 15 APPL BTL TP SCH (09:07)
[2017-01-19] MEDS: METOLAZONE 2.5 MG TABLET PO SCH (09:07)
[2017-01-19] MEDS: CITALOPRAM HYDROBROMIDE 10 MG TABLET PO SCH (09:07)
[2017-01-19] MEDS: CHOLECALCIFEROL 1,000 UNIT CAPSULE PO SCH (09:07)
[2017-01-19] MEDS: CALCITRIOL 0.25 MCG CAPSULE PO SCH (09:07)
[2017-01-19] MEDS: FUROSEMIDE 10 MG/ML VIAL IV SCH (09:10)
[2017-01-19] MEDS ORDERED: WARFARIN SODIUM 3 MG TABLET PO SCH (17:00)
== END 2017-01-19 11:39 | disposition home health service (06) ==
LOC: ER 11:10 → MS 13:38
PROVIDERS: ADMIT Internal Medicine; ATTEND Internal Medicine
DX: I48.2 Chronic atrial fibrillation (principal); Z79.01 Long term (current) use of anticoagulants; M25.511 Pain in right shoulder; S20.211A Contusion of right front wall of thorax, initial encounter; S40.011A Contusion of right shoulder, initial encounter; W18.30XA Fall on same level, unspecified, initial encounter; Z91.81 History of falling; Y92.009 Unspecified place in unspecified non-institutional (private) residence as the place of occurrence of the external cause; R53.1 Weakness; I12.9 Hypertensive chronic kidney disease with stage 1 through stage 4 chronic kidney disease, or unspecified chronic kidney disease; N18.4 Chronic kidney disease, stage 4 (severe); Z87.891 Personal history of nicotine dependence; K21.9 Gastro-esophageal reflux disease without esophagitis; E78.5 Hyperlipidemia, unspecified
CPT/HCPCS: 36415; 71010; 71100; 72100; 73030; 80048; 80053; 81001; 83880; 84484; 85025; 85610; 93005; 96374; 96376; 97110; 97116; 97161; 97530; 99285; G0378; G8978; G8979; G8980

== ENCOUNTER 2017-02-18 19:55 | Observation (INO) | payer MEDICARE, BC, OTHER ==
--- NOTE | 2017-02-18 20:24 | ERNOTE ---
Medical Problem HPI - General Chief Complaint: General Assessment Time Seen by Provider: 02/18/17 20:05 Source: family Exam Limitations: no limitations - Immun/Allergies/Home Medications Immunizations: IMMUNIZATION HX Immunizations Up to Date Yes History of Influenza Vaccine Yes Hx Pneumococcal Vaccination Yes Allergies/Adverse Reactions: Allergies No Known Allergies Allergy (Verified 02/18/17 20:03) Home Medications: HOME MEDICATIONS Albuterol Sulfate [Albuterol Sulfate 2.5 MG/3 ML] 2.5 mg IH Q6H PRN 08/24/16 [ Last Taken 01/17/17] Citalopram Hydrobromide [Citalopram HBr] 10 mg PO DAILY 08/24/16 [Last Taken ] Furosemide [Lasix] 80 mg PO BID 08/24/16 [Last Taken 01/17/17] Nitroglycerin [Nitrostat] 0.4 mg SL Q5MIN PRN 08/24/16 [Last Taken 01/17/17] Nystatin [Mycostatin Powder] 1 appl TP BID 08/24/16 [Last Taken 01/17/17] Omeprazole [Prilosec] 20 mg PO DAILY 08/24/16 [Last Taken 01/17/17] Simvastatin [Zocor] 40 mg PO HS 08/24/16 [Last Taken 01/16/17] Warfarin Sodium [Jantoven] 2 mg PO DAILY 08/24/16 [Last Taken 01/17/17] glyBURIDE [Micronase] 5 mg PO BIDAC tablet 08/26/16 [Last Taken 01/17/17] Acetaminophen 1,000 mg PO Q6H PRN 11/14/16 [Last Taken 01/17/17] Calcitriol 0.25 mcg PO DAILY 11/14/16 [Last Taken 01/17/17] Cholecalciferol (Vitamin D3) [Vitamin D3] 1,000 unit PO BID 11/14/16 [Last Taken 01/17/17] Warfarin Sodium [Coumadin] 3 mg PO DAILY 01/17/17 [Last Taken 01/17/17] Metolazone [Zaroxolyn] 2.5 mg PO BID #4 tablet 01/18/17 [Last Taken Unknown] Potassium Chloride [K-Dur] 20 meq PO BIDWM #60 tablet.sa 01/18/17 [Last Taken Unknown] Potassium Chloride [Klor-Con 10] 30 meq PO BIDWM #4 tablet.sa 01/18/17 [Last Taken Unknown] traMADol HCL [Ultram] 50 mg PO TID PRN #60 tablet 01/18/17 [Last Taken Unknown] - History of Present History Narrative: pt is unable to give me a history and states she does not know why she is here. Daughter who is the soil analyst and POA tells me that she is no longer able to take care of her mother as she feels that her mother's dementia places her at safety risk at home. Daughter reports that mother wants to burn down the house. She was unable to do so and therefore became angry and cut the cord to her transport chair. Daughter states she is no longer able to keep patient at home and maintain a safe environment for her. Review of Systems - Narrative Narrative: pt denies any symptoms whatsoever - Review of Systems Constitutional: Present: no symptoms reported EYE: Present: no symptoms reported ENT: Present: no symptoms reported Respiratory: Present: no symptoms reported Cardiology: Present: no symptoms reported Gastrointestinal/Abdominal: Present: no symptoms reported Genitourinary: Present: no symptoms reported - Patient's Past Medical History Patient History - Medical: Anemia, Diabetes Type 2, Obesity, Other Patient History - Cardiac/Respiratory: Atrial Fibrillation, CHF, Hypertension, Hyperlipidemia Patient History - Cancer: Colon Patient History - Surgical Procedures: Cancer Surgery, Cataracts, Cholecystectomy, Colon Resection, Other Patient History - Other: None LMP (females 10-50): Menopausal - Family History Brother Family History - Medical: Diabetes Type 2, Seizures Family History - Cardiac/Respiratory: No pertinent hx Father Family History - Medical: , Other Family History - Cardiac/Respiratory: History Unknown Mother Family History - Medical: , Diabetes Type 2 Family History - Cardiac/Respiratory: Hypertension - Social History Living Situations: home Abuse History: No History of abuse Psych History: No pertinent hx Alcohol Use: none Drug Use: none - Immunizations Immunizations Up to Date: Yes Hx Pneumococcal Vaccination: Yes History of Influenza Vaccine: Yes Physical Exam - Physical Exam General Appearance: Present: wd/wn, no apparent distress, other - pt is awake and responds when engaged in conversation however is unable to recall why she is here Head Exam: Present: normal inspection, no evidence of injury Eye Exam: Normal inspection: bilateral, PERRL: bilateral, EOMI: bilateral Ears, Nose, Throat: Present: normal ENT inspection Neck: Present: normal inspection, nontender Respiratory: Present: no respiratory distress, normal breath sounds, no accessory muscle use, chest nontender, lungs clear Cardiovascular/Chest: Present: regular rate, rhythm, no murmur, normal peripheral pulses Extremity Exam: Present: normal inspection, normal range of motion Skin Exam: Present: normal color, other - patient has multiple skin ulcers on her body. She has a 5cm X 4 cm irregular sacabbed over superficial ulcer on right lower abd wall. area around it appears red and inflammed and no pus is noted in the area. She has a 4 cm X 4 cm scabbed over ulcer on the right hip, and she has a small 1.5 cm moist appearing ulcer on left upper anterior thigh area. areas do not appear infected ED Progress - Results and Orders Patient's Lab Results:: I have reviewed the patient's lab results. - Vital Signs Patient's Vital Signs:: I have reviewed the patient's vital signs. Vital Signs: Vital Signs 02/18/17 02/18/17 19:59 20:04 Temperature 36.9 C Pulse Rate 77 Respiratory 17 19 Rate Blood Pressure 110/50 O2 Sat by Pulse 93 Oximetry - EKG EKG read: Interp. by sd - X-Ray X-Ray #1 X-Ray: chest - Progress/Reassessment Chief Complaint: General Assessment Plan - Plan Plan: [place] [address]. Her Lactic acid is 2.0.I have consulted hospitalist to admit patient for CHF exacerbation in this demential patient. Departure - Departure Clinical Impression: CHF exacerbation Qualifiers: Congestive heart failure type: unspecified congestive heart failure type Qualified Code(s): I50.9 - Heart failure, unspecified Disposition: [facility] Condition: Fair Referrals: Octavia Hoff MD [Primary Care Provider] -
[2017-02-18 20:36] LABS: Urine Appearance Clear; Urine Bilirubin Negative (NEGATIVE); Urine Blood Negative /ul (NEGATIVE); Urine Color Yellow; Urine Ketone Negative (NEGATIVE); Urine pH 5.5 pH (5.0-7.0)
[2017-02-18 20:37] LABS: Urine Nitrite Negative (NEGATIVE); Urine Protein Negative (NEGATIVE)
[2017-02-18 20:41] LABS: Urine Bacteria None Seen; Urine Hyaline Cast 0-5 /LPF; Urine RBC None Seen /hpf (0-5); Urine WBC 0-5 /hpf (0-5)
[2017-02-18 20:41] LABS: Hematocrit 34.7 % (37.0-47.0); Hemoglobin 10.9 gm/dL (12.5-16.0); Mean Cell Volume 84.6 fl (78-100); Mean Corpuscular Hemoglobin 26.6 pg (27-31); Mean Corpuscular Hgb Conc 31.4 g/dl (32-36); Neutrophil # 5.5 K/mm3 (1.3-6.0); Neutrophil % 75.2 % (42-75.0); Platelet Count 196 K/mm3 (150-450); White Blood Count 7.3 K/mm3 (4.0-10.5)
[2017-02-18 21:05] LABS: Albumin * 2.4 gm/dl (3.4-5.0); Anion Gap 11.5 mmol/L (6.8-13.8); BUN/Creatinine Ratio 21.3 (9.0-21.6); Bilirubin, Total 1.2 mg/dL (0.0-1.1); Ca. Corrected For Albumin 9.1 mg/dL (8.4-10.2); Calcium * 8.1 mg/dL (7.9-10.9); Potassium 4.5 mmol/L (3.4-4.6); Total Protein 6.8 gm/dL (6.2-8.2)
[2017-02-18] MEDS ORDERED: FUROSEMIDE 10 MG/ML VIAL IV ONE (23:13)
--- NOTE | 2017-02-18 23:48 | HP ---
Chief Complaint - Chief Complaint Date of Service: 02/18/17 Time of Service: 22:39 Chief Complaint: Dementia, CHF exac History of Present Illness: 89-year-old white female, patient of Dr. Hoff,[facility] significant for coronary artery disease, diabetes mellitus type 2, atrial fibrillation on Coumadin, chronic, hypertension, chronic renal failure stage 4, GERD, hypertension, hyperlipidemia and multiple wounds. Per daughter (POA) pt was last adm 01/18/17 for shoulder pain and CHF exacerbation discharged to [facility] for Pt/OT and later discharge home after 30days. Today while at home pt told the daughter that she was going to burn down the house and she had uses a scissor to cut the electrical cord of her powered lift chair. Upon daughter visit she found patient sitting in her own stool upset. Over the past several weeks the daughter had noticed that the patient have been getting more confused and combative. she was seen last Sunday by Dr. Hoff and the concern for dementia was raised. The daughter is the primary caregiver and unable to provide 24hr care for patient and due to safety reasons and pt lives alone family want her to be re-admit to long-term either ([place] or [place]). pt is been seen at the wound clinic for multiple wounds, the daughter has not been able to take her to the appointments because patient had refused and it had become much harder to get patient out of the house. she has new wounds from prolong sitting in her body waste, per daughter pt was able to take her self to bedside commode but now is unable to do so. In ER Lactic acid 2.0, BNP 56724 slightly higher than previous visit BNP 69110, CXR: with some vascular congestion. plan of care discussed with pt and POA they verbalized understanding and agrees. - Patient's Past Medical History Patient History - Medical: Anemia, Diabetes Type 2, Dementia, Obesity, Other - pressure sores Patient History - Cardiac/Respiratory: Atrial Fibrillation - on coumadin, CHF - diastolic CHF, Hypertension, Hyperlipidemia Patient History - Cancer: Colon Patient History - Surgical Procedures: Cancer Surgery, Cataracts, Cholecystectomy, Colon Resection, Other Patient History - Other: None LMP (females 10-50): Menopausal - Family History Brother Family History - Medical: Diabetes Type 2, Seizures Family History - Cardiac/Respiratory: No pertinent hx Father Family History - Medical: , Other Family History - Cardiac/Respiratory: History Unknown Mother Family History - Medical: , Diabetes Type 2 Family History - Cardiac/Respiratory: Hypertension - Social History Living Situations: home - alone Abuse History: No History of abuse Psych History: No pertinent hx Have you smoked in the past 12 months: No Do you dip or chew tobacco: No Alcohol Use: none Drug Use: none - Immunizations Immunizations Up to Date: Yes Hx Pneumococcal Vaccination: Yes History of Influenza Vaccine: Yes Review Of Systems (GEN) - Review of Systems Generalized/Overall Review: Present: Weakness EENTM: Present: No Symptoms Reported Respiratory: Present: No Symptoms Reported Cardiac: Present: Edema Abdominal: Present: No Symptoms Reported Genitourinary: Present: Urgency, Incontinent Musculoskeletal: Present: No Symptoms Reported Neurological: Present: Weakness Skin: Present: Other - multiple wounds Endocrine: Present: No Symptoms Reported Immunizations: IMMUNIZATION HX Immunizations Up to Date Yes History of Influenza Vaccine Yes Hx Pneumococcal Vaccination Yes Allergies/Adverse Reactions: Allergies Allergy/AdvReac Type Severity Reaction Status Date / Time No Known Allergies Allergy Verified 02/18/17 20:03 Home Medications: HOME MEDICATIONS Albuterol Sulfate [Albuterol Sulfate 2.5 MG/3 ML] 2.5 mg IH Q6H PRN 08/24/16 [ Last Taken 01/17/17] Citalopram Hydrobromide [Citalopram HBr] 10 mg PO DAILY 08/24/16 [Last Taken ] Furosemide [Lasix] 80 mg PO BID 08/24/16 [Last Taken 01/17/17] Nitroglycerin [Nitrostat] 0.4 mg SL Q5MIN PRN 08/24/16 [Last Taken 01/17/17] Nystatin [Mycostatin Powder] 1 appl TP BID 08/24/16 [Last Taken 01/17/17] Omeprazole [Prilosec] 20 mg PO DAILY 08/24/16 [Last Taken 01/17/17] Simvastatin [Zocor] 40 mg PO HS 08/24/16 [Last Taken 01/16/17] Warfarin Sodium [Jantoven] 2 mg PO DAILY 08/24/16 [Last Taken 01/17/17] glyBURIDE [Micronase] 5 mg PO BIDAC tablet 08/26/16 [Last Taken 01/17/17] Acetaminophen 1,000 mg PO Q6H PRN 11/14/16 [Last Taken 01/17/17] Calcitriol 0.25 mcg PO DAILY 11/14/16 [Last Taken 01/17/17] Cholecalciferol (Vitamin D3) [Vitamin D3] 1,000 unit PO BID 11/14/16 [Last Taken 01/17/17] Warfarin Sodium [Coumadin] 3 mg PO DAILY 01/17/17 [Last Taken 01/17/17] Metolazone [Zaroxolyn] 2.5 mg PO BID #4 tablet 01/18/17 [Last Taken Unknown] Potassium Chloride [K-Dur] 20 meq PO BIDWM #60 tablet. 01/18/17 [Last Taken Unknown] Potassium Chloride [Klor-Con 10] 30 meq PO BIDWM #4 tablet. 01/18/17 [Last Taken Unknown] traMADol HCL [Ultram] 50 mg PO TID PRN #60 tablet 01/18/17 [Last Taken Unknown] Exam - Exam Vital Signs: Vital Signs - Last Taken Temp 36.9 C 02/18/17 19:59 Pulse 78 02/18/17 22:16 Resp 18 02/18/17 22:16 BP 108/62 02/18/17 22:16 Pulse Ox 94 02/18/17 22:16 Constitutional: Present: Cooperative, Elderly ENT Exam: Present: hearing grossly normal Eye Exam: bilateral eye: normal inspection Neck: Present: full range of motion Back Exam: Present: normal inspection Breasts: Present: Exam deferred Respiratory: Present: chest non-tender, no respiratory distress, no accessory muscle use, decreased breath sounds Cardiovascular/Chest: Present: systolic murmur, edema Peripheral Pulses: dorsalis-pedis (R): 2+, dorsalis-pedis (L): 2+ Abdomen: Present: Normal bowel sounds, soft, nontender, nondistended, no rebound tenderness /Rectal: Present: Exam deferred Extremity: Present: inflammation, leg cramps, lower extremity edema, slow capillary refill, swelling Skin Exam: Present: other - right lower quadrant ulcer scabed over, buttocks excoriated Neurologic: Present: alert, motor weakness Appearance: Present: appropriate appearance, impaired insight, impaired recent memory Eye contact: Present: good eye contact Thoughts: Absent: normal thought pattern, persecution Diagnostic Studies: Laboratory Results WBC 7.3 K/mm3 (4.0-10.5) 02/18/17 20:35 RBC 4.10 M/mm3 (4.2-5.4) L 02/18/17 20:35 Hgb 10.9 gm/dL (12.5-16.0) L 02/18/17 20:35 Hct 34.7 % (37.0-47.0) L 02/18/17 20:35 MCV 84.6 fl (78-100) 02/18/17 20:35 MCH 26.6 pg (27-31) L 02/18/17 20:35 MCHC 31.4 g/dl (32-36) L 02/18/17 20:35 RDW 16.0 % (11.5-14.0) H 02/18/17 20:35 Plt Count 196 K/mm3 (150-450) 02/18/17 20:35 MPV 10.0 fl (6.0-9.5) H 02/18/17 20:35 Immature Gran % (Auto) 0.30 % (0.001-0.429) 02/18/17 20:35 Immature Gran # (Auto) 0.02 K/mm3 (0.000-0.0310) 02/18/17 20:35 Neutrophils % 75.2 % (42-75.0) H 02/18/17 20:35 Lymphocytes % 18.2 % (20-51) L 02/18/17 20:35 Monocytes % 4.8 % (0.0-9) 02/18/17 20:35 Eosinophils % 1.1 % (0.0-3.0) 02/18/17 20:35 Basophils % 0.4 % (0.0-1.0) 02/18/17 20:35 Nucleated RBC % 0.0 k/mm3 (0-1) 02/18/17 20:35 Neutrophils # 5.5 K/mm3 (1.3-6.0) 02/18/17 20:35 Lymphocytes # 1.3 k/mm3 (1.5-3.5) L 02/18/17 20:35 Monocytes # 0.4 k/mm3 (0.0-1.0) 02/18/17 20:35 Eosinophils # 0.1 k/mm3 (0.0-0.7) 02/18/17 20:35 Absolute Basophils 0.0 k/mm3 (0.0-0.1) 02/18/17 20:35 Sodium 135 mmol/L (132-142) 02/18/17 20:35 Plasma Sodium 137 mmol/L (130-142) 02/18/17 20:35 Potassium 4.5 mmol/L (3.4-4.6) 02/18/17 20:35 Chloride 100 mmol/L (97-106) 02/18/17 20:35 Carbon Dioxide 28.0 mmol/L (24-32.6) 02/18/17 20:35 Anion Gap 11.5 mmol/L (6.8-13.8) 02/18/17 20:35 BUN 36 mg/dL (3-23) H 02/18/17 20:35 Creatinine 1.69 mg/dL (0.4-1.4) H D 02/18/17 20:35 Est GFR (Non-Af Amer) 30 mL/min (60-130) L D 02/18/17 20:35 BUN/Creatinine Ratio 21.3 (9.0-21.6) 02/18/17 20:35 Random Glucose 255 mg/dL (70-110) H 02/18/17 20:35 Lactic Acid, Venous 2.0 mmol/L (0.4-1.9) H 02/18/17 20:35 Calcium 8.1 mg/dL (7.9-10.9) 02/18/17 20:35 Calcium Adj for Albumin 9.1 mg/dL (8.4-10.2) 02/18/17 20:35 Total Bilirubin 1.2 mg/dL (0.0-1.1) H 02/18/17 20:35 AST 17 U/L (0-48) 02/18/17 20:35 ALT 14 U/L (19-67) L 02/18/17 20:35 Alkaline Phosphatase 146 U/L (50-170) 02/18/17 20:35 B-Natriuretic Peptide 56157 pg/mL (5-550) H 02/18/17 20:35 Total Protein 6.8 gm/dL (6.2-8.2) 02/18/17 20:35 Albumin 2.4 gm/dl (3.4-5.0) L 02/18/17 20:35 Urine Color Yellow 02/18/17 20:29 Urine Appearance Clear 02/18/17 20: Urine pH 5.5 pH (5.0-7.0) 02/18/17 20:29 Ur Specific [place] 1.010 SP.GR. (1.005-1.010) 02/18/17 20:29 Urine Protein Negative mg/dL (NEGATIVE) 02/18/17 20:29 Urine Glucose (UA) Negative mg/dL (NEGATIVE) 02/18/17 20: Urine Ketones Negative mg/dL (NEGATIVE) 02/18/17 20: Urine Blood Negative /ul (NEGATIVE) 02/18/17 20: Urine Nitrate Negative (NEGATIVE) 02/18/17 20: Urine Bilirubin Negative mg/dl (NEGATIVE) 02/18/17 20: Urine Urobilinogen 2.0 EU/dl (NORMAL) H 02/18/17 20:29 Ur Leukocyte Esterase Negative /ul (NEGATIVE) 02/18/17 20:29 Urine RBC None seen /hpf (0-5) 02/18/17 20:29 Urine WBC 0-5 /hpf (0-5) 02/18/17 20:29 Ur Epithelial Cells None seen /hpf (0-5) 02/18/17 20:29 Urine Bacteria None seen (NONE) 02/18/17 20:29 Hyaline Casts 0-5 /LPF (NONE) H 02/18/17 20:29 Urine Culture Comments No culture indicated 02/18/17 20:29 Assessment/Plan - Narrative Narrative: Acute on chronic diastolic CHF exacerbation On adm BNP 49846 slightly higher than previous adm BLE pitting edema Daily weight Lasix 20mg x1 now and resume daily dose Torres cath for correct I/O and while pt have multiple perineal wounds Resume home medications ? Dementia Family express concern for deteriorating cognitive function pt is unable to perform daily routine pt exhibiting high risk behaviour that are major safety concerns. mini mental cognitive exam Vitamin B12 and TSH pending ? May consider a Ct head w/o contrast to evaluate memory loss. Generalized weakness- likely due to deconditioning pt was recently discharged form the nursing where she was getting PT/OT She was able to get out of bed to bedside commode, but now unable to get out to sit on the side. A-Fib- stable Resume Coumadin monitor INR Chronic renal failure- pt at baseline On adm Bun/ cre--->36/1.69 Monitor BMP in AM Diabetes Accu-check AC+HS and Resume home medications Consistent carb, low sodium diet Hypertension- stable BP 108/62 Continue to monitor vital signs Multiple wounds Barrier cream to buttocks Turn pt q2hrs Wound care and follow up with wound clinic Code status: DNR VTE ppx: therapeutic Coumadin GI ppx: Protonix Time 50 minutes Previous record reviewed and discussion with POA - Assessment/Plan (1) Acute on chronic diastolic (congestive) heart failure Problem: Acute (2) Generalized weakness Problem: Chronic (3) A-fib Problem: Chronic Qualifiers: (4) Chronic renal failure, stage 4 (severe) Problem: Chronic (5) Diabetes mellitus Problem: Chronic (6) GERD (gastroesophageal reflux disease) Problem: Chronic (7) HLD (hyperlipidemia) Problem: Chronic Qualifiers: (8) HTN (hypertension) Problem: Chronic Qualifiers: (9) Wounds, multiple Problem: Chronic
[2017-02-19] MEDS ORDERED: ALBUTEROL SULFATE 2.5 MG/3 ML VIAL.NEB IH PRN (05:37)
[2017-02-19] MEDS ORDERED: NITROGLYCERIN 0.4 MG/TAB BTL SL PRN (05:37)
[2017-02-19 05:45] LABS: Prothrombin Time (Patient) 33.7 Seconds (9.4-11.4)
[2017-02-19 06:01] LABS: INR 3.24 INR (0.90-1.10)
[2017-02-19 06:17] LABS: Anion Gap 10.8 mmol/L (6.8-13.8); BUN/Creatinine Ratio 21.6 (9.0-21.6); Calcium * 8.2 mg/dL (7.9-10.9); Carbon Dioxide 29.1 mmol/L (24-32.6); Estimated Creat Clear 10.7; Potassium 3.9 mmol/L (3.4-4.6); TSH * 1.261 uIU/mL (0.358-3.74)
[2017-02-19] MEDS ORDERED: ALBUTEROL SULFATE 2.5 MG/0.5 ML VIAL.NEB IH PRN (06:39)
[2017-02-19] MEDS: PANTOPRAZOLE SODIUM 20 MG TABLET.DR PO SCH (07:43)
[2017-02-19] MEDS: glyBURIDE 5 MG TABLET PO SCH ×2 (07:43→17:29)
[2017-02-19] MEDS: FUROSEMIDE 80 MG TABLET PO SCH ×2 (08:25→17:29)
[2017-02-19] MEDS: CALCITRIOL 0.25 MCG CAPSULE PO SCH (08:25)
[2017-02-19] MEDS: POTASSIUM CHLORIDE 20 MEQ TABLET.SA PO SCH ×2 (08:25→17:29)
[2017-02-19] MEDS: MUPIROCIN 22 APPL TUBE TP SCH ×3 (08:25→17:29)
[2017-02-19] MEDS: CITALOPRAM HYDROBROMIDE 10 MG TABLET PO SCH (08:25)
[2017-02-19] MEDS: CHOLECALCIFEROL 1,000 UNIT CAPSULE PO SCH ×2 (08:26→21:07)
[2017-02-19] MEDS: NYSTATIN 15 APPL BTL TP SCH ×2 (08:26→21:08)
[2017-02-19] MEDS: GABAPENTIN 100 MG CAPSULE PO SCH ×3 (08:26→17:30)
[2017-02-19] MEDS ORDERED: WARFARIN SODIUM 3 MG TABLET PO SCH ×2 (09:00)
[2017-02-19] MEDS ORDERED: PIPERONYL BUTOX/PYRETHR/PERMET 1 EACH KIT TP ONE (09:39)
[2017-02-19] MEDS ORDERED: SIMVASTATIN 40 MG TABLET PO SCH (21:00)
--- NOTE | 2017-02-20 00:04 | PN ---
Subjective - Date and Time Seen Date: 02/19/17 Time: 22:00 Subjective Narrative: Patient seen today she is AOX2 no acute distress, pt stated her family was tired of her and she didn't want to be a bother to anyone. she denies chest pain , shortness of breath, palpitation or cough. pt stated she has not been able to walk and her legs are getting weaker each day. Objective - Review of Systems Generalized/Overall Review: Reports: No Symptoms Reported EENTM: Reports: No Symptoms Reported Respiratory: Reports: No Symptoms Reported Cardiac: Reports: Edema Abdominal: Reports: No Symptoms Reported Genitourinary Symptoms: Reports: No Symptoms Reported Musculoskeletal Complaints: Reports: Muscle Pain Neurological: Reports: Weakness Skin: Reports: No Symptoms Reported Endocrine: Reports: No Symptoms Reported - Vitals Vitals: Last Vital Signs Temp 37 C 02/19/17 19:30 Pulse 68 02/19/17 19:30 Resp 20 02/19/17 19:30 BP 128/70 02/19/17 19:30 Pulse Ox 96 02/19/17 19:30 - Abnormal Lab Findings Abnormal Lab Findings: Abnormal Lab Results 02/19/17 02/19/17 Range/Units 05:15 05:15 PT 33.7 H (9.4-11.4) Seconds INR (Anticoag Therapy) 3.24 H (0.90-1.10) INR BUN 33 H (3-23) mg/dL Creatinine 1.53 H (0.4-1.4) mg/dL Est GFR (Non-Af Amer) 34 L (60-130) mL/min B-Natriuretic Peptide 26649 H (5-550) pg/mL - Exam Constitutional: Present: Alert, Cooperative, Well developed ENT Exam: Present: hearing grossly normal Neck: Present: full range of motion Respiratory: Present: chest non-tender, no respiratory distress, no accessory muscle use, decreased breath sounds Cardiovascular/Chest: Present: normal peripheral pulses, regular rate, rhythm, no chest tenderness Abdomen: Present: Normal bowel sounds, soft, nontender, nondistended /Rectal: Present: Exam deferred Extremity: Present: non-tender, lower extremity edema, swelling Skin Exam: Present: other - buttocks excoriated and wound to abdomen Lymphatic: Present: no adenopathy Neurologic: Present: oriented x 3 Appearance: Present: appropriate appearance Eye contact: Present: cooperative, good eye contact Cauti Physician Documentation - Urinary Catheter Management Uretheral (Torres) Date of Insertion: 02/18/17 Time of Insertion: 23:55 Date of Removal: 02/19/17 Time of Removal: 08:30 Assessment/Plan Plan Narrative: Generalized weakness- likely due to deconditioning pt was recently discharged form the nursing where she was getting PT/OT She was able to get out of bed to bedside commode, but now unable to get out to sit on the side. PT/OT evaluation and treatment ? Dementia Family express concern for deteriorating cognitive function pt is unable to perform daily routine pt exhibiting high risk behaviour that are major safety concerns. mini mental cognitive exam Vitamin B12 and TSH noted WNL ? May consider a Ct head w/o contrast to evaluate memory loss. Acute on chronic diastolic CHF exacerbation On adm BNP 63352--->87339 trending down BLE pitting edema Daily weight--->79.9kg Continue with Lasix Torres cath for correct I/O and while pt have multiple perineal wounds Resume home medications A-Fib- stable Hold Coumadin supertherapeutic INR 3.24 Continue to monitor INR Chronic renal failure- pt at baseline On adm Bun/ cre--->36/1.69----> 33/1.53 Monitor BMP in AM Diabetes Accu-check AC+HS and Resume home medications Consistent carb, low sodium diet Hypertension- stable Continue to monitor vital signs Multiple wounds Barrier cream to buttocks Turn pt q2hrs Wound care and follow up with wound clinic Code status: DNR VTE ppx: therapeutic Coumadin GI ppx: Protonix Time 20 minutes - Problems/Diagnosis (1) Acute on chronic diastolic (congestive) heart failure Problem: Acute (2) Generalized weakness Problem: Chronic (3) A-fib Problem: Chronic Qualifiers: (4) Chronic renal failure, stage 4 (severe) Problem: Chronic (5) Diabetes mellitus Problem: Chronic (6) GERD (gastroesophageal reflux disease) Problem: Chronic (7) HLD (hyperlipidemia) Problem: Chronic Qualifiers: (8) HTN (hypertension) Problem: Chronic Qualifiers: (9) Wounds, multiple Problem: Chronic
[2017-02-20] MEDS ORDERED: traMADol HCL 50 MG TABLET PO PRN (04:30)
[2017-02-20] MEDS: glyBURIDE 5 MG TABLET PO SCH (07:30)
[2017-02-20] MEDS: PANTOPRAZOLE SODIUM 20 MG TABLET.DR PO SCH (07:30)
[2017-02-20 09:10] LABS: Prothrombin Time (Patient) 30.2 Seconds (9.4-11.4)
[2017-02-20 09:12] LABS: INR 2.9 INR (0.90-1.10)
[2017-02-20] MEDS: FUROSEMIDE 80 MG TABLET PO SCH ×2 (09:24→17:10)
[2017-02-20] MEDS: CALCITRIOL 0.25 MCG CAPSULE PO SCH (09:24)
[2017-02-20] MEDS: CITALOPRAM HYDROBROMIDE 10 MG TABLET PO SCH (09:24)
[2017-02-20] MEDS: POTASSIUM CHLORIDE 20 MEQ TABLET.SA PO SCH ×2 (09:24→17:10)
[2017-02-20] MEDS: MUPIROCIN 22 APPL TUBE TP SCH ×3 (09:24→17:09)
[2017-02-20] MEDS: GABAPENTIN 100 MG CAPSULE PO SCH ×3 (09:25→17:10)
[2017-02-20] MEDS: NYSTATIN 15 APPL BTL TP SCH ×2 (09:25→20:29)
[2017-02-20] MEDS: CHOLECALCIFEROL 1,000 UNIT CAPSULE PO SCH ×2 (09:25→20:31)
--- NOTE | 2017-02-20 13:00 | PN ---
Subjective - Date and Time Seen Date: 02/19/17 Time: 10:00 Objective - Review of Systems Generalized/Overall Review: Reports: Weakness, Fatigue EENTM: Reports: No Symptoms Reported Respiratory: Reports: No Symptoms Reported Cardiac: Reports: No Symptoms Reported Abdominal: Reports: No Symptoms Reported Genitourinary Symptoms: Reports: No Symptoms Reported Musculoskeletal Complaints: Reports: No Symptoms Reported Neurological: Reports: No Symptoms Reported Skin: Reports: No Symptoms Reported Endocrine: Reports: No Symptoms Reported Misc: All systems neg except as marked - Vitals Vitals: Last Vital Signs Temp 36.4 C L 02/20/17 09:00 Pulse 62 02/20/17 09:24 Resp 18 02/20/17 09:00 BP 106/54 02/20/17 09:24 Pulse Ox 95 02/20/17 09:00 - Abnormal Lab Findings Abnormal Lab Findings: Abnormal Lab Results 02/20/17 Range/Units 08:55 PT 30.2 H (9.4-11.4) Seconds INR (Anticoag Therapy) 2.90 H (0.90-1.10) INR - Exam Constitutional: Present: Alert, Cooperative, No distress ENT Exam: Present: hard of hearing, moist mucous membranes Respiratory: Present: lungs clear, normal breath sounds, no respiratory distress , no accessory muscle use Cardiovascular/Chest: Present: systolic murmur, irregularly irregular, edema Abdomen: Present: soft, nontender, nondistended Cauti Physician Documentation - Urinary Catheter Management Uretheral (Torres) Date of Insertion: 02/18/17 Time of Insertion: 23:55 Date of Removal: 02/19/17 Time of Removal: 08:30 Assessment/Plan Plan Narrative: -Patient's admitting diagnosis should be generalized weakness with inability to take care of herself at home. I am not convinced the patient has acute decompensated CHF as originally documented by the ED physician on admit -PT/OT evaluation and treatment -Appreciate our case supervisor assistance with difficult discharge planning -Patient is medically stable for discharge once a safe discharge plan is in place - Problems/Diagnosis (1) Discharge planning issues Problem: Acute (2) Generalized weakness Problem: Chronic Narrative: Acute on chronic
[2017-02-20] MEDS ORDERED: ACETAMINOPHEN 325 MG TABLET PO PRN (13:39)
[2017-02-20] MEDS ORDERED: WARFARIN SODIUM 2 MG TABLET PO SCH (17:00)
[2017-02-20] MEDS: INSULIN LISPRO 100 UNITS/ML VIAL SC SCH (17:21)
[2017-02-21 06:19] LABS: Prothrombin Time (Patient) 23.7 Seconds (9.4-11.4)
[2017-02-21 06:21] LABS: INR 2.28 INR (0.90-1.10)
[2017-02-21] MEDS: INSULIN LISPRO 100 UNITS/ML VIAL SC SCH (07:51)
[2017-02-21] MEDS: PANTOPRAZOLE SODIUM 20 MG TABLET.DR PO SCH (07:53)
[2017-02-21 08:02] VITALS: BP 126/62
[2017-02-21] MEDS: MUPIROCIN 22 APPL TUBE TP SCH (09:53)
[2017-02-21] MEDS: CHOLECALCIFEROL 1,000 UNIT CAPSULE PO SCH (09:54)
[2017-02-21] MEDS: GABAPENTIN 100 MG CAPSULE PO SCH (09:54)
[2017-02-21] MEDS: FUROSEMIDE 80 MG TABLET PO SCH (09:55)
[2017-02-21] MEDS: POTASSIUM CHLORIDE 20 MEQ TABLET.SA PO SCH (09:55)
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
[2017-02-21] MEDS: CALCITRIOL 0.25 MCG CAPSULE PO SCH (09:56)
[2017-02-21] MEDS: CITALOPRAM HYDROBROMIDE 10 MG TABLET PO SCH (09:56)
[2017-02-21] MEDS: NYSTATIN 15 APPL BTL TP SCH (09:57)
== END 2017-02-21 11:20 ==
LOC: ER 19:55 → MS 21:15
PROVIDERS: ADMIT Nurse Practitioner; ATTEND Internal Medicine
PROC: 0T9B70Z Drainage of Bladder with Drainage Device, Via Natural or Artificial Opening (ICD-10-PCS; principal; 2017-02-18)
DX: I50.33 Acute on chronic diastolic (congestive) heart failure (principal); F03.90 Unspecified dementia, unspecified severity, without behavioral disturbance, psychotic disturbance, mood disturbance, and anxiety; L98.411 Non-pressure chronic ulcer of buttock limited to breakdown of skin; E11.622 Type 2 diabetes mellitus with other skin ulcer; I48.2 Chronic atrial fibrillation; K21.9 Gastro-esophageal reflux disease without esophagitis; I12.9 Hypertensive chronic kidney disease with stage 1 through stage 4 chronic kidney disease, or unspecified chronic kidney disease; N18.4 Chronic kidney disease, stage 4 (severe); I10 Essential (primary) hypertension; L89.329 Pressure ulcer of left buttock, unspecified stage; L89.319 Pressure ulcer of right buttock, unspecified stage; L98.492 Non-pressure chronic ulcer of skin of other sites with fat layer exposed
CPT/HCPCS: 36415; 51702; 71010; 80048; 80053; 81001; 82607; 83605; 83880; 84443; 85025; 85610; 93005; 96372; 96374; 97165; 99284; G0378; G8987; G8988; G8989

== ENCOUNTER 2017-03-31 13:22 | Inpatient (IN) | payer MEDICARE, BC, OTHER ==
[2017-03-31 13:52] LABS: Hematocrit 34.4 % (37.0-47.0); Hemoglobin 10.6 gm/dL (12.5-16.0); Mean Cell Volume 88.7 fl (78-100); Mean Corpuscular Hemoglobin 27.3 pg (27-31); Mean Corpuscular Hgb Conc 30.8 g/dl (32-36); Mean Platelet Volume 9.9 fl (6.0-9.5); Neutrophil # 6.7 K/mm3 (1.3-6.0); Neutrophil % 84.5 % (42-75.0); Platelet Count 221 K/mm3 (150-450); Red Blood Count 3.88 M/mm3 (4.2-5.4); Red Cell Distribution Width 19.3 % (11.5-14.0); White Blood Count 7.9 K/mm3 (4.0-10.5)
[2017-03-31] MEDS ORDERED: FUROSEMIDE 10 MG/ML VIAL ONE (13:54)
[2017-03-31] MEDS ORDERED: FUROSEMIDE 10 MG/ML VIAL IV ONE (13:59)
[2017-03-31] MEDS ORDERED: FUROSEMIDE 10 MG/ML VIAL IV SCH (14:00)
--- NOTE | 2017-03-31 14:02 | ERNOTE ---
Dyspnea - Date Date of Service: 03/31/17 - General Presenting Symptoms: other - hypoxia Time Seen by Provider: 03/31/17 13:27 Source: patient Exam Limitations: no limitations - Immun/Allergies/Home Medications Immunizations: IMMUNIZATION HX Immunizations Up to Date Yes History of Influenza Vaccine Yes Hx Pneumococcal Vaccination Yes Allergies/Adverse Reactions: Allergies No Known Allergies Allergy (Verified 02/18/17 20:03) Home Medications: HOME MEDICATIONS Calcitriol 0.25 mcg PO DAILY 03/16/17 [Last Taken Unknown] Cholecalciferol (Vitamin D3) [Vitamin D3] 1,000 unit PO BID 03/16/17 [Last Taken Unknown] Citalopram Hydrobromide [Citalopram HBr] 10 mg PO DAILY 03/16/17 [Last Taken Unknown] Furosemide [Lasix] 80 mg PO BID 03/16/17 [Last Taken Unknown] Gabapentin 100 mg PO TID 03/16/17 [Last Taken Unknown] Glucagon,Human Recombinant [Glucagon Emergency Kit] 1 mg IJ PRN 03/16/17 [Last Taken Unknown] Insulin Aspart [Novolog] See Protocol 03/16/17 [Last Taken Unknown] Insulin Glargine,Hum.rec.anlog [Lantus] 2 units SQ BID 03/16/17 [Last Taken Unknown] Nitroglycerin [Nitrostat] 1 tab SL Q5MIN PRN 03/16/17 [Last Taken Unknown] Omeprazole Magnesium 20 mg PO DAILY 03/16/17 [Last Taken Unknown] Potassium Chloride [Klor-Con M20] 20 meq PO BID 03/16/17 [Last Taken Unknown] Tramadol HCl [Rybix Odt] 50 mg PO ONCE PRN 03/16/17 [Last Taken Unknown] Warfarin Sodium [Jantoven] 2 mg PO ONCE 03/16/17 [Last Taken Unknown] Albuterol Sulfate [Albuterol Sulfate 2.5 MG/3 ML] 2.5 mg IH Q6H PRN 03/31/17 [ Last Taken Unknown] Metoprolol Succinate 25 mg PO DAILY 03/31/17 [Last Taken Unknown] Mupirocin 1 gm TP TID 03/31/17 [Last Taken Unknown] Nystatin [Nystop] 60 gm TP BID 03/31/17 [Last Taken Unknown] Simvastatin 40 mg PO DAILY 03/31/17 [Last Taken Unknown] glyBURIDE [Micronase] 5 mg PO BID 03/31/17 [Last Taken Unknown] - History of Present Illness Narrative: Pt. from [facility] comes in with c/o hypoxia when her aide went to check on her. Pt. denies any symptoms other than nausea this morning which has resolved. Pt. denies any SOB, CP, fevers, or recent injury. Pt. does state that she is more tired. Review of Systems - Review of Systems Constitutional: Present: fatigue. Absent: fever, chills, weakness, malaise EYE: Present: no symptoms reported ENT: Present: no symptoms reported Respiratory: Present: other - hypoxia. Absent: shortness of breath, cough, wheezing Cardiology: Present: no symptoms reported. Absent: chest pain, palpitations, edema Gastrointestinal/Abdominal: Present: nausea. Absent: vomiting, diarrhea, abdominal pain Genitourinary: Present: no symptoms reported Musculoskeletal: Present: no symptoms reported. Absent: back pain, joint pain Skin: Present: change in hair/nails - cyanotic. Absent: rash Neurological: Present: no symptoms reported. Absent: headache, dizziness/light- headedness, numbness, tingling All Other Systems: All systems neg except as marked - Patient's Past Medical History Patient History - Medical: Anemia, Diabetes Type 2, Dementia, Obesity Patient History - Cardiac/Respiratory: Atrial Fibrillation, CHF, Hypertension, Hyperlipidemia Patient History - Cancer: Colon Patient History - Surgical Procedures: Cancer Surgery, Cataracts, Cholecystectomy, Colon Resection, Other Patient History - Other: None - Family History Brother Family History - Medical: Diabetes Type 2, Seizures Family History - Cardiac/Respiratory: No pertinent hx Father Family History - Medical: , Other Family History - Cardiac/Respiratory: History Unknown Mother Family History - Medical: , Diabetes Type 2 Family History - Cardiac/Respiratory: Hypertension - Social History Abuse History: No History of abuse Psych History: No pertinent hx - Immunizations Immunizations Up to Date: Yes Hx Pneumococcal Vaccination: Yes History of Influenza Vaccine: Yes Physical Exam - Physical Exam General Appearance: Present: wd/wn, no apparent distress, lethargic Head Exam: Present: normal inspection, no evidence of injury Eye Exam: Normal inspection: bilateral, PERRL: bilateral, EOMI: bilateral Ears, Nose, Throat: Present: normal ENT inspection, normal pharynx Neck: Present: normal inspection, nontender. Absent: lymphadenopathy (R), lymphadenopathy (L) Respiratory: Present: no respiratory distress, no accessory muscle use, chest nontender, rhonchi - throughout Cardiovascular/Chest: Present: no murmur, bradycardia Peripheral Pulses: N=norm/S=strong/W=weak/B=bound/A=absent: Radial (R): Bounding , Radial (L): Bounding, Dorsalis-pedis (R): Bounding, Dorsalis-pedis (L): Bounding Gastrointestinal/Abdominal: Present: normal bowel sounds, nontender, no organomegaly, distended Back Exam: Present: normal inspection Extremity Exam: Present: non-tender, normal range of motion, extremity edema - + 4 pitting BLE and depentant coccyxeal Neurological Exam: Present: oriented, normal mood/affect, no motor/sensory deficits, other - forgetful Skin Exam: Present: cool/dry, cyanosis - acro, pallor ED Progress - Date and Time Seen: Date and Time: 03/31/17 13:59 Discussed wishes with pt. and she states that she does not want Big mask for breathing even if she were to . Discussed with Daughter/POA on the phone and she would like us to try Bipap if needed until she gets here. 03/31/17 15:09 Discussed with family and they and patient do not want dialysis at this time so they would like full treatment but only conservative methods and non invasive treatment. 03/31/17 16:[address] Louis and we will admit with CHF exacerbation, hyperkalemia, MSOF, and overanticoagulation 03/31/17 16:39 - Results and Orders Patient's Lab Results:: I have reviewed the patient's lab results. - Vital Signs Patient's Vital Signs:: I have reviewed the patient's vital signs. - EKG EKG: atrial fibrillation, RBBB, nonspecific ST T wave changes, LVH, other - anterior ischemia EKG read: Reviewed by me EKG Comments: interp by Dr Yuen - X-Ray X-Ray #1 X-Ray: chest Interpretation: Reviewed by me X-ray Comments: pulmonary congestion with hilary B lines indicating CHF Departure Clinical Impression: Acute kidney injury, Chronic renal failure, stage 4 (severe), Elevated INR, Acrocyanosis, Compensated metabolic alkalosis Congestive heart failure Qualifiers: Congestive heart failure type: unspecified congestive heart failure type Congestive heart failure chronicity: acute on chronic Qualified Code(s): I50.9 - Heart failure, unspecified Acute liver failure Qualifiers: Hepatic coma status: without hepatic coma Qualified Code(s): K72.00 - Acute and subacute hepatic failure without coma - Departure Disposition: [facility] Condition: Critical Referrals: Maurilio Brennan MD [Primary Care Provider] - - Critical Care Total Time (mins): 45 Critical Care: Critical care of direct pt. care resuscitation, and discussions with family
[2017-03-31 14:11] LABS: Albumin * 2.7 gm/dl (3.4-5.0); Anion Gap 20.8 mmol/L (6.8-13.8); BUN/Creatinine Ratio 17.5 (9.0-21.6); Bilirubin, Total 1.7 mg/dL (0.0-1.1); Ca. Corrected For Albumin 9.6 mg/dL (8.4-10.2); Calcium * 8.9 mg/dL (7.9-10.9); Carbon Dioxide 22.2 mmol/L (24-32.6); TSH * 3.129 uIU/mL (0.358-3.74); Total Protein 7.6 gm/dL (6.2-8.2)
[2017-03-31 14:12] LABS: Troponin I 0.154 ng/ml (0.00-0.10)
[2017-03-31 14:14] LABS: INR Greater than 9.60 INR (0.90-1.10)
[2017-03-31] MEDS ORDERED: PHYTONADIONE (VIT K1) 10 MG/ML AMPUL SC ONE (14:34)
[2017-03-31] MEDS ORDERED: INSULIN REGULAR, HUMAN 100 UNITS/ML VIAL IV ONE (14:48)
[2017-03-31] MEDS ORDERED: DEXTROSE 50%-WATER 50 ML SYRG IV ONE (14:51)
[2017-03-31] MEDS ORDERED: SODIUM POLYSTYRENE SULFON/SORB 15 G/60 ML BTL RC ONE (14:53)
[2017-03-31] MEDS ORDERED: DEXTROSE 10 % IN WATER 1,000 ML IV SCH (15:00)
[2017-03-31] MEDS ORDERED: SODIUM POLYSTYRENE SULFON/SORB 15 G/60 ML BTL ONE (15:05)
[2017-03-31] MEDS ORDERED: PHYTONADIONE (VIT K1) 10 MG/ML AMPUL ONE (15:07)
[2017-03-31] MEDS ORDERED: INSULIN REGULAR, HUMAN 100 UNITS/ML VIAL ONE (15:16)
[2017-03-31 15:33] LABS: Urine Appearance Slightly Cloudy; Urine Bilirubin Negative (NEGATIVE); Urine Blood Negative /ul (NEGATIVE); Urine Color Yellow; Urine Ketone Negative (NEGATIVE); Urine Nitrite Negative (NEGATIVE); Urine Protein Negative (NEGATIVE); Urine Urobilinogen Normal (NORMAL); Urine pH 5.5 pH (5.0-7.0)
[2017-03-31 15:34] LABS: Urine Bacteria TRACE; Urine RBC None Seen /hpf (0-5); Urine WBC 0-5 /hpf (0-5)
[2017-03-31 15:35] LABS: Urine Amorphous Sediment Few - 1+ (NONE-FEW); Urine Hyaline Cast 0-5 /LPF
[2017-03-31] MEDS ORDERED: DEXTROSE 50%-WATER 50 ML SYRG ONE (15:37)
[2017-03-31 18:59] LABS: BUN/Creatinine Ratio 17.7 (9.0-21.6); Calcium * 8.8 mg/dL (7.9-10.9); Carbon Dioxide 23.3 mmol/L (24-32.6); Estimated Creat Clear 11.2
[2017-03-31 19:06] LABS: Potassium 7.3 mmol/L (3.4-4.6)
--- NOTE | 2017-03-31 19:53 | HP ---
Chief Complaint - Chief Complaint Date of Service: 03/31/17 Time of Service: 19:48 Chief Complaint: lethargic History of Present Illness: 89 years old WF adm to the hospital from ER with reports of dyspnea an been lethargic at the alf. PMH significant for diabetes, CHF, Afib ( on Coumadin) hypertension and Chronic kidney failure. Per EMI( January) she was told by the alf that her mother was unresponsive and they weren't able to get a oxygen sat on her and need to be sent to the ER. While in ER pt was refusing oxygen and combative, non-rebreather spo2 74-77%, CXR: Relatively low lung volume, extensive chronic lung disease. Trop 0.154, BNP 05146, Super- therapeutic INR 9.6, K+ 7.0, Bun/Cre 50/2.85 GFR 17. EMI stated they have discussed as a family pt rapidly declining condition and want her to be on Hospice they have already spoke with someone at [facility] to hospice. They want comfort care vitals BID, oxygen and diuretics for comfort only. Pt is discussed with [facility] via phone conversation she verbalized understanding and agree. - Patient's Past Medical History Patient History - Medical: Anemia, Diabetes Type 2, Dementia, Obesity Patient History - Cardiac/Respiratory: Atrial Fibrillation, CHF, Hypertension, Hyperlipidemia Patient History - Cancer: Colon Patient History - Surgical Procedures: Cancer Surgery, Cataracts, Cholecystectomy, Colon Resection, Other Patient History - Other: None LMP (females 10-50): Menopausal - Family History Brother Family History - Medical: Diabetes Type 2, Seizures Family History - Cardiac/Respiratory: No pertinent hx Family History - Cancer: No pertinent family hx Father Family History - Medical: , Other Family History - Cardiac/Respiratory: History Unknown Family History - Cancer: No pertinent family hx, History Unknown Mother Family History - Medical: , Diabetes Type 2 Family History - Cardiac/Respiratory: Hypertension Family History - Cancer: No pertinent family hx - Social History Living Situations: alf Abuse History: No History of abuse Psych History: No pertinent hx Smoking Status: Former smoker Have you smoked in the past 12 months: No Do you dip or chew tobacco: No Patient requests Smoking Cessation Consult: No Initiate information on Smoking Cessation: No Alcohol Use: none Drug Use: none - Immunizations Immunizations Up to Date: Yes Hx Pneumococcal Vaccination: Yes History of Influenza Vaccine: Yes Review Of Systems (GEN) - Review of Systems Additional Comments: pt is incoherent and unable to obtain information due to medical state, information obtained from family and nurse. Immunizations: IMMUNIZATION HX Immunizations Up to Date Yes History of Influenza Vaccine Yes Hx Pneumococcal Vaccination Yes Allergies/Adverse Reactions: Allergies Allergy/AdvReac Type Severity Reaction Status Date / Time No Known Allergies Allergy Verified 02/18/17 20:03 Home Medications: HOME MEDICATIONS Calcitriol 0.25 mcg PO DAILY 03/16/17 [Last Taken Unknown] Cholecalciferol (Vitamin D3) [Vitamin D3] 1,000 unit PO BID 03/16/17 [Last Taken Unknown] Citalopram Hydrobromide [Citalopram HBr] 10 mg PO DAILY 03/16/17 [Last Taken Unknown] Furosemide [Lasix] 80 mg PO BID 03/16/17 [Last Taken Unknown] Gabapentin 100 mg PO TID 03/16/17 [Last Taken Unknown] Glucagon,Human Recombinant [Glucagon Emergency Kit] 1 mg IJ PRN 03/16/17 [Last Taken Unknown] Insulin Aspart [Novolog] See Protocol 03/16/17 [Last Taken Unknown] Nitroglycerin [Nitrostat] 1 tab SL Q5MIN PRN 03/16/17 [Last Taken Unknown] Omeprazole Magnesium 20 mg PO DAILY 03/16/17 [Last Taken Unknown] Potassium Chloride [Klor-Con M20] 20 meq PO BID 03/16/17 [Last Taken Unknown] Tramadol HCl [Rybix Odt] 50 mg PO TID PRN 03/16/17 [Last Taken Unknown] Warfarin Sodium [Jantoven] 2 mg PO DAILY 03/16/17 [Last Taken Unknown] Albuterol Sulfate [Albuterol Sulfate 2.5 MG/3 ML] 2.5 mg IH Q6H PRN 03/31/17 [ Last Taken Unknown] Bactrim Ds PO BID 03/31/17 [Last Taken Unknown] Collagenase Clostridium Hist. [Santyl] 1 appl TP DAILY 03/31/17 [Last Taken Unknown] Metoprolol Succinate 25 mg PO DAILY 03/31/17 [Last Taken Unknown] Mupirocin 1 gm TP TID 03/31/17 [Last Taken Unknown] Nystatin [Nystop] 60 gm TP BID 03/31/17 [Last Taken Unknown] Simvastatin 40 mg PO DAILY 03/31/17 [Last Taken Unknown] Warfarin Sodium [Coumadin] 3 mg PO 03/31/17 [Last Taken Unknown] glyBURIDE [Micronase] 5 mg PO BID 03/31/17 [Last Taken Unknown] Exam - Exam Vital Signs: Vital Signs - Last Taken Temp 36.1 C L 03/31/17 19:00 Pulse 55 L 03/31/17 19:00 Resp 20 03/31/17 19:00 BP 101/5 03/31/17 19:00 Pulse Ox 95 03/31/17 16:38 Constitutional: Present: Somnolent ENT Exam: Present: hearing grossly normal Back Exam: Present: normal inspection Breasts: Present: Exam deferred Respiratory: Present: chest non-tender, no respiratory distress, no accessory muscle use, decreased breath sounds Cardiovascular/Chest: Present: irregularly irregular Abdomen: Present: Normal bowel sounds, soft Skin Exam: Present: normal color, warm/dry Neurologic: Present: motor weakness Appearance: Present: impaired insight, impaired recent memory, impaired remote memory Eye contact: Present: avoids eye contact Thoughts: Present: incoherent Diagnostic Studies: Abnormal Lab Results 03/31/17 Range/Units 18:45 Sodium 130 L (132-142) mmol/L Potassium 7.3 H* (3.4-4.6) mmol/L Chloride 96 L (97-106) mmol/L Carbon Dioxide 23.3 L (24-32.6) mmol/L Anion Gap 18.0 H (6.8-13.8) mmol/L BUN 52 H (3-23) mg/dL Creatinine 2.93 H (0.4-1.4) mg/dL Est GFR (Non-Af Amer) 16 L (60-130) mL/min Random Glucose 133 H D (70-110) mg/dL Laboratory Results WBC 7.9 K/mm3 (4.0-10.5) 03/31/17 13:37 RBC 3.88 M/mm3 (4.2-5.4) L 03/31/17 13:37 Hgb 10.6 gm/dL (12.5-16.0) L 03/31/17 13:37 Hct 34.4 % (37.0-47.0) L 03/31/17 13:37 MCV 88.7 fl (78-100) 03/31/17 13:37 MCH 27.3 pg (27-31) 03/31/17 13:37 MCHC 30.8 g/dl (32-36) L 03/31/17 13:37 RDW 19.3 % (11.5-14.0) H 03/31/17 13:37 Plt Count 221 K/mm3 (150-450) 03/31/17 13:37 MPV 9.9 fl (6.0-9.5) H 03/31/17 13:37 Immature Gran % (Auto) 0.60 % (0.001-0.429) H 03/31/17 13:37 Immature Gran # (Auto) 0.05 K/mm3 (0.000-0.0310) H 03/31/17 13:37 Neutrophils % 84.5 % (42-75.0) H 03/31/17 13:37 Lymphocytes % 10.5 % (20-51) L 03/31/17 13:37 Monocytes % 4.3 % (0.0-9) 03/31/17 13:37 Eosinophils % 0.0 % (0.0-3.0) 03/31/17 13:37 Basophils % 0.1 % (0.0-1.0) 03/31/17 13:37 Nucleated RBC % 0.0 k/mm3 (0-1) 03/31/17 13:37 Neutrophils # 6.7 K/mm3 (1.3-6.0) H 03/31/17 13:37 Lymphocytes # 0.8 k/mm3 (1.5-3.5) L 03/31/17 13:37 Monocytes # 0.3 k/mm3 (0.0-1.0) 03/31/17 13:37 Eosinophils # 0.0 k/mm3 (0.0-0.7) 03/31/17 13:37 Absolute Basophils 0.0 k/mm3 (0.0-0.1) 03/31/17 13:37 PT Greater than 100.0 Seconds (9.0-11.0) H 03/31/17 13:37 INR (Anticoag Therapy) Greater than 9.60 INR (0.90-1.10) H* 03/31/17 13:37 pCO2 28.4 mmHg (32.0-45.0) L 03/31/17 16:10 pO2 63.5 mmHg (83.0-108.0) L 03/31/17 16:10 HCO3 15.8 mmol/L (21.0-28.0) L 03/31/17 16:10 Total CO2 16.6 mmol/L (19.0-24.0) L 03/31/17 16:10 Base Excess -8.5 mmol/L (-2.0-3.0) L 03/31/17 16:10 ABG pH 7.36 (7.35-7.45) 03/31/17 16:10 ABG O2 Sat (Measured) 92.0 % (94.0-98.0) L 03/31/17 16:10 Sodium 130 mmol/L (132-142) L 03/31/17 18:45 Plasma Sodium 131 mmol/L (130-142) 03/31/17 18:45 Potassium 7.3 mmol/L (3.4-4.6) H* 03/31/17 18:45 Chloride 96 mmol/L (97-106) L 03/31/17 18:45 Carbon Dioxide 23.3 mmol/L (24-32.6) L 03/31/17 18:45 Anion Gap 18.0 mmol/L (6.8-13.8) H 03/31/17 18:45 BUN 52 mg/dL (3-23) H 03/31/17 18:45 Creatinine 2.93 mg/dL (0.4-1.4) H 03/31/17 18:45 Est GFR (Non-Af Amer) 16 mL/min (60-130) L 03/31/17 18:45 BUN/Creatinine Ratio 17.7 (9.0-21.6) 03/31/17 18:45 Random Glucose 133 mg/dL (70-110) H D 03/31/17 18:45 Calcium 8.8 mg/dL (7.9-10.9) 03/31/17 18:45 Calcium Adj for Albumin 9.6 mg/dL (8.4-10.2) 03/31/17 13:37 Total Bilirubin 1.7 mg/dL (0.0-1.1) H 03/31/17 13:37 AST 3169 U/L (0-48) H 03/31/17 13:37 ALT 1496 U/L (19-67) H 03/31/17 13:37 Alkaline Phosphatase 323 U/L (50-170) H 03/31/17 13:37 Troponin I 0.154 ng/ml (0.00-0.10) H* 03/31/17 13:37 B-Natriuretic Peptide 90962 pg/mL (5-550) H 03/31/17 13:37 Total Protein 7.6 gm/dL (6.2-8.2) 03/31/17 13:37 Albumin 2.7 gm/dl (3.4-5.0) L 03/31/17 13:37 TSH 3.129 uIU/mL (0.358-3.74) 03/31/17 13:37 Urine Color Yellow 03/31/17 14:57 Urine Appearance Slightly cloudy 03/31/17 14:57 Urine pH 5.5 pH (5.0-7.0) 03/31/17 14:57 Ur Specific Dyer 1.030 SP.GR. (1.005-1.010) 03/31/17 14:57 Urine Protein Negative mg/dL (NEGATIVE) 03/31/17 14:57 Urine Glucose (UA) Negative mg/dL (NEGATIVE) 03/31/17 14:57 Urine Ketones Negative mg/dL (NEGATIVE) 03/31/17 14:57 Urine Blood Negative /ul (NEGATIVE) 03/31/17 14:57 Urine Nitrate Negative (NEGATIVE) 03/31/17 14:57 Urine Bilirubin Negative mg/dl (NEGATIVE) 03/31/17 14:57 Urine Urobilinogen Normal EU/dl (NORMAL) 03/31/17 14:57 Ur Leukocyte Esterase Negative /ul (NEGATIVE) 03/31/17 14:57 Urine RBC None seen /hpf (0-5) 03/31/17 14:57 Urine WBC 0-5 /hpf (0-5) 03/31/17 14:57 Ur Epithelial Cells 0-5 /hpf (0-5) 03/31/17 14:57 Amorphous Sediment Few - 1+ (NONE-FEW) 03/31/17 14:57 Urine Bacteria Trace (NONE) 03/31/17 14:57 Hyaline Casts 0-5 /LPF (NONE) H 03/31/17 14:57 Urine Culture Comments No culture indicated 03/31/17 14:57 CXR: relatively low lung volume, extensive chronic lung disease. Assessment/Plan - Narrative Narrative: Family want hospice and comfort care while awaiting hospice They have spoke with [facility] and they will be consulted Vitals signs BID Request to have diuretics and oxygen nasal cannula for comfort measures Code status: DNR GI ppx and VTE ppx: Family refused Time 40 minutes, previous records reviewed and case discussed with Dr Louis - Assessment/Plan (1) Acrocyanosis Problem: Acute (2) Acute liver failure Problem: Chronic Qualifiers: Hepatic coma status: without hepatic coma Qualified Code(s): K72.00 - Acute and subacute hepatic failure without coma (3) Congestive heart failure Problem: Chronic Qualifiers: Congestive heart failure type: unspecified congestive heart failure type Congestive heart failure chronicity: acute on chronic Qualified Code(s): I50.9 - Heart failure, unspecified (4) Chronic renal failure, stage 4 (severe) Problem: Chronic (5) A-fib Problem: Chronic Qualifiers: (6) Diabetes Problem: Chronic Qualifiers: (7) GERD (gastroesophageal reflux disease) Problem: Chronic (8) HLD (hyperlipidemia) Problem: Chronic Qualifiers: (9) HTN (hypertension) Problem: Chronic Qualifiers: (10) Pulmonary hypertension Problem: Chronic (11) Wounds, multiple Problem: Chronic (12) Hyperkalemia Problem: Acute
[2017-03-31] MEDS ORDERED: ALBUTEROL SULFATE 2.5 MG/3 ML VIAL.NEB IH PRN (22:38)
[2017-04-01 00:24] VITALS: BP 93/41
[2017-04-01] MEDS ORDERED: PANTOPRAZOLE SODIUM 20 MG TABLET.DR PO SCH (07:00)
[2017-04-01] MEDS ORDERED: FUROSEMIDE 80 MG TABLET PO SCH (09:00)
--- NOTE | 2017-04-12 06:36 | DS ---
Discharge Summary - Provider Primary Care Provider: Maurilio Brennan - Date and Time Date of : 04/01/17 Time of : 02:00 - Diagnosis/Cause of (1) Acrocyanosis Problems: Acute (2) Acute liver failure Problems: Chronic (3) Congestive heart failure Problems: Chronic (4) Chronic renal failure, stage 4 (severe) Problems: Chronic (5) A-fib Problems: Chronic (6) Diabetes Problems: Chronic (7) GERD (gastroesophageal reflux disease) Problems: Chronic (8) HLD (hyperlipidemia) Problems: Chronic (9) HTN (hypertension) Problems: Chronic (10) Pulmonary hypertension Problems: Chronic (11) Wounds, multiple Problems: Chronic (12) Hyperkalemia Problems: Acute - Summary Details (narrative): 89 years old WF adm to the hospital from ER with reports of dyspnea an been lethargic at the shelter. PMH significant for diabetes, CHF, Afib ( on Coumadin) hypertension and Chronic kidney failure. Per EMI( January) she was told by the shelter that her mother was unresponsive and they weren't able to get a oxygen sat on her and need to be sent to the ER. While in ER pt was refusing oxygen and combative, non-rebreather spo2 74-77%, CXR: Relatively low lung volume, extensive chronic lung disease. Trop 0.154, BNP 70516, Super- therapeutic INR 9.6, K+ 7.0, Bun/Cre 50/2.85 GFR 17. MELANIEOpal stated they have discussed as a family pt rapidly declining condition and want her to be on Hospice they have already spoke with someone at [facility] to hospice. They want comfort care vitals BID, oxygen and diuretics for comfort only. Plan is discussed with POOpal via phone conversation she verbalized understanding and agree. Approximately at 0200 pt was pronounced , complication of cardiopulmonary failure. she had no pulse, no respiration, pupils fix and dilated. Procedures Performed: none - Additional Data Confirmation of as documented by pronouncing clinician: no pulse, no respirations, no heart sounds, pupils fixed and dilated Family: contacted Additional persons at bedside: other - Nurses Attending/PCP notified: Yes Was code activated: No - DNR comfort measures Autopsy requested: No Lighting Specialist notified: Yes [employer] notified: Yes Advance Directives: Yes Hospice patient: No - family was to discuss with hospice the next day
== END 2017-04-01 02:16 | disposition expired | DRG 299 ==
LOC: ER 13:22 → MS 16:35
PROVIDERS: ADMIT Internal Medicine; ATTEND Allergy & Immunology
PROC: 0T9B70Z Drainage of Bladder with Drainage Device, Via Natural or Artificial Opening (ICD-10-PCS; principal; 2017-03-31)
PROC: 4A033R1 Measurement of Arterial Saturation, Peripheral, Percutaneous Approach (ICD-10-PCS; 2017-03-31)
DX: I73.89 Other specified peripheral vascular diseases (principal); K72.00 Acute and subacute hepatic failure without coma; N18.4 Chronic kidney disease, stage 4 (severe); I12.9 Hypertensive chronic kidney disease with stage 1 through stage 4 chronic kidney disease, or unspecified chronic kidney disease; E87.5 Hyperkalemia; E11.22 Type 2 diabetes mellitus with diabetic chronic kidney disease; I48.2 Chronic atrial fibrillation; E78.5 Hyperlipidemia, unspecified; Z87.891 Personal history of nicotine dependence; Z79.84 Long term (current) use of oral hypoglycemic drugs; Z79.01 Long term (current) use of anticoagulants